=== PATIENT | female | born 1960 | race Caucasian/White ===

== ENCOUNTER 2017-02-07 20:59 | Emergency (ER) | payer MEDICAID ==
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
[2017-02-07 21:14] VITALS: BP 138/78
== END 2017-02-07 22:30 | disposition left against medical advice (07) ==
LOC: ER 20:59
DX: Z53.9 Procedure and treatment not carried out, unspecified reason (principal); S50.12XA Contusion of left forearm, initial encounter; M79.671 Pain in right foot; M54.5 Low back pain; X58.XXXA Exposure to other specified factors, initial encounter
CPT/HCPCS: 99283

== ENCOUNTER → 2017-03-30 | Outpatient (CLI) | payer MEDICAID | LOC: RAD 15:28 | PROVIDERS: ATTEND Orthopaedic Surgery | DX: M25.129 Fistula, unspecified elbow (principal) | CPT/HCPCS: 82565; 73223; A9576 ==

== ENCOUNTER → 2017-07-08 | Outpatient (CLI) | payer MEDICAID ==
--- NOTE | 2017-07-08 10:57 | RADIOLOGY REPORT (SQ) ---
EXAM DESCRIPTION: KNEE LEFT 3 VIEWS COMPLETED DATE/TIME: 07/08/2017 10:43 am REASON FOR STUDY: LEFT LATERAL KNEE PAIN, EFFUSION, LOCKING COMPARISON: None. NUMBER OF VIEWS: Three views. TECHNIQUE: AP, lateral, and sunrise patella radiographic images acquired of the left knee. LIMITATIONS: None. FINDINGS: MINERALIZATION: Normal. BONES: No acute fracture or dislocation. No worrisome bone lesions. JOINT: Mild tricompartmental osteoarthritis most notably involving the medial tibiofemoral compartmen t were there is joint space narrowing and marginal osteophyte formation. No significant joint effusi on. SOFT TISSUES: No soft tissue swelling. No radio-opaque foreign body. OTHER: No other significant finding. IMPRESSION: TRICOMPARTMENTAL OSTEOARTHRITIS ABOVE. NO ACUTE OSSEOUS ABNORMALITY APPEAR TECHNICAL DOCUMENTATION: JOB ID: [id number] [employer]- All Rights Reserved
== END ==
LOC: OD 10:18
PROVIDERS: ATTEND Internal Medicine
DX: M25.562 Pain in left knee (principal)

== ENCOUNTER 2018-05-04 12:56 | Inpatient (IN) | payer MEDICAID ==
[2018-05-04] MEDS ORDERED: NORMAL SALINE 1000 ML 1,000 ML IV ONE (14:00)
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
--- NOTE | 2018-05-04 14:33 | ER Document Report ---
ED Extremity Problem, Lower - General Chief Complaint: Foot Pain Stated Complaint: LEFT HEEL/FOOT PAIN Time Seen by Provider: 05/04/18 13:53 Mode of Arrival: Ambulatory Information source: Patient Notes: 57 yo smoker hx COPD, CHF, breast cancer status post mastectomy, hypertension, hyperlipidemia, rheumatoid arthritis. female c/o severe left foot pain. while in [place] hit foot on rug vent, cut the heel next to the old heel ulcer, went to to ER 04/19, put in cardiac unit for multiple PE's (chest pain) and sludge on gallbladder. Taking Eliquis 2 bid for 2 days (4 daily prior) while hospitalized her left heel started to hurt more and turned black. The MR of foot showed chronic ulceration at the plantar aspect of the heel with chronic erosive change and remodeling of the inferior calcaneus with a small amount of underlying bone marrow edema these findings appear compatible with chronic osteomyelitis a small focus of active osteomyelitis cannot be excluded given the associated marrow edema, a PICC line was inserted and she was to get 6 weeks of IV antibiotics. She was discharged on April 27 and returned to [place]. Went to Dr. Lopez today wanting referral to dr. Chaka bennett and dr lopez sent her to the ER. She takes Percocet 15mg tid (pain management [place]) has a few left at home. Was on Dilaudid IV while in hospital. No fever. Tx for osteomylitis and chronic ulcer which did eventually healed [place] [address] Va Bennett. Her medical records from [place] are here in the emergency department. Her discharge summary diagnosed her with acute bilateral pulmonary emboli, acute hypoxic respiratory failure, acute exacerbation of chronic obstructive lung disorder, left foot osteomyelitis, acute renal failure , and chronic systolic heart failure. She has no chest pain or shortness of breath but she does say she has heartburn and she is wondering if Eliquis is causing that. TRAVEL OUTSIDE OF THE [place] IN LAST 30 DAYS: No - Related Data Allergies/Adverse Reactions: Paclitaxel,Semi-Synthetic [From Taxol] Allergy (Severe, Verified 05/04/18 13:03) Fever, rash, eyes swell Sulfa (Sulfonamide Antibiotics) Allergy (Severe, Verified 05/04/18 13:03) sulfasalazine [From Azulfidine] Allergy (Severe, Verified 05/04/18 13:03) Fever, rash, swelling multiple antibiotics Allergy (Severe, Uncoded 05/04/18 13:03) n and v, itching, swelling Past Medical History - General Information source: Patient - Social History Smoking Status: Current Every Day Smoker Frequency of alcohol use: Occasional Drug Abuse: None Lives with: Alone Family History: Reviewed & Not Pertinent Patient has suicidal ideation: No Patient has homicidal ideation: No - Past Medical History Cardiac Medical History: Reports: Hx Heart Attack - 1993,"silent [place]", Hx Hypercholesterolemia, Hx Hypertension - on meds, Hx Pulmonary Embolism, Hx Heart Murmur Pulmonary Medical History: Reports: Hx Asthma, Hx COPD, Hx Pneumonia Neurological Medical History: Reports: Hx Cerebrovascular Accident - "mild stroke" Endocrine Medical History: Reports: Hx Diabetes Mellitus Type 2 - diet controlled Renal/ Medical History: Denies: Hx Peritoneal Dialysis GI Medical History: Musculoskeltal Medical History: Reports Hx Arthritis - rheumatoid, Reports Other - osetomylitis Psychiatric Medical History: Infectious Medical History: Past Surgical History: Reports: Hx Breast Surgery, Hx Mastectomy - right, 2005 restrictions , Hx Tonsillectomy, Hx Tubal Ligation - Immunizations Hx Diphtheria, Pertussis, Tetanus Vaccination: Yes Hx Pneumococcal Vaccination: 08/20/09 Review of Systems - Review of Systems Constitutional: Other - left heel pain EENT: No symptoms reported Cardiovascular: No symptoms reported Respiratory: No symptoms reported Gastrointestinal: See HPI Genitourinary: No symptoms reported Female Genitourinary: No symptoms reported Musculoskeletal: No symptoms reported Skin: See HPI Hematologic/Lymphatic: No symptoms reported Neurological/Psychological: No symptoms reported Physical Exam - Vital signs Vitals: Temp Pulse Resp BP Pulse Ox 98.5 F 96 18 98/53 L 94 05/04/18 13:14 05/04/18 13:14 05/04/18 13:14 05/04/18 13:14 05/04/18 13:14 Interpretation: Hypotensive Notes: Walked back and forth to the bathroom twice without dizziness or shortness of breath. Pulse ox is 94%. - General General appearance: Appears well, Alert - HEENT Head: Normocephalic, Atraumatic Eyes: Normal Conjunctiva: Normal Pupils: PERRL Pharynx: Normal Neck: Supple. No: Lymphadenopathy - Respiratory Respiratory status: No respiratory distress, Other - pulse ox 94% on room air Chest status: Nontender Breath sounds: Normal Chest palpation: Normal - Cardiovascular Rhythm: Regular Heart sounds: Normal auscultation Murmur: No - Abdominal Inspection: Normal Distension: No distension Bowel sounds: Normal Tenderness: Nontender Organomegaly: No organomegaly - Back Back: Normal, Nontender - Extremities General upper extremity: Normal inspection, Nontender, Normal color, Normal ROM , Normal temperature General lower extremity: Normal inspection, Nontender, Normal color, Normal ROM , Normal temperature, Normal weight bearing. No: German's sign Calf: Other - left calf larger than right. No: Tender Foot: Tender - left heel with white devitalized tissue, malodorous exudate, 2+ DP., Other - normally uses 1 crutch - Neurological Neuro grossly intact: Yes Cognition: Normal Orientation: AAOx4 [place] Coma Scale Eye Opening: Spontaneous [place] Coma Scale Verbal: Oriented [place] Coma Scale Motor: Obeys Commands [place] Coma Scale Total: 15 Speech: Normal Motor strength normal: LUE, RUE, LLE, RLE Sensory: Normal - Psychological Associated symptoms: Normal affect, Normal mood - Skin Skin Temperature: Warm Skin Moisture: Dry Skin Color: Normal Notes: see above Course - Re-evaluation Re-evalutation: 05/04/18 15:46 hx MRSA buttocks 05/04/18 16:30 Dr. Stephens will admit to telemetry. Dr. Rich is in the room examining the patient and will do some debridement of the nonviable tissue. I added a A1C, chest x-ray, EKG. Blood has been redrawn by the lab and is pending. I informed patient about the admission which she is happy about since she knows she needs wound care and IV antibiotics. Invanz 1 g IV has been ordered. Wound culture has been sent to the lab. CBC is normal. - Vital Signs Vital signs: Temp Pulse Resp BP Pulse Ox 98.5 F 96 18 98/53 L 94 05/04/18 13:14 05/04/18 13:14 05/04/18 13:14 05/04/18 13:14 05/04/18 13:14 - Laboratory Result Diagrams: 05/04/18 15:17 05/04/18 15:17 Laboratory results interpreted by me: 05/04/18 05/04/18 15:17 15:17 Hct 35.7 L RDW 14.1 H Lymphocytes % 47.9 H ESR 88 H PT 16.2 H APTT 42.4 H Discharge - Discharge Clinical Impression: Left heel ulcer, left heel osteomyelitis, Hypotension, History of COPD, recent bilatera, PE, Diet-controlled type 2 diabetes mellitus Condition: Stable Disposition: ADMITTED INPATIENT Admitting Provider: Hospitalist Unit Admitted: Telemetry Referrals: CHER LOPEZ MD [Primary Care Provider] - Follow up as needed
--- NOTE | 2018-05-04 15:12 | RADIOLOGY REPORT (SQ) ---
EXAM DESCRIPTION: FOOT LEFT COMPLETE COMPLETED DATE/TIME: 05/04/2018 3:00 pm REASON FOR STUDY: hx osteo; eval osteomyelitis gas COMPARISON: 04/15/2016. NUMBER OF VIEWS: Three views. TECHNIQUE: AP, lateral and oblique without weight bearing radiographic images acquired of the left f oot. LIMITATIONS: None. FINDINGS: MINERALIZATION: Normal. BONES: No acute fracture or dislocation. Old deformity of the head of the 2nd metatarsal. No worris ome bone lesions. No significant osteophytes. JOINTS: No erosions. No micha-articular osteopenia. No chondrocalcinosis. SOFT TISSUES: Soft tissue swelling. No radiopaque foreign body. No visualized gas. OTHER: No other significant finding. IMPRESSION: SOFT TISSUE SWELLING. NO RADIOPAQUE FOREIGN BODY OR VISUALIZED SOFT TISSUE GAS. NO ACU TE BONY FINDINGS. TECHNICAL DOCUMENTATION: JOB ID: [id number] [employer]- All Rights Reserved Reading location - IP/workstation name: [email or web address]
[2018-05-04] MEDS ORDERED: FENTANYL CITRATE INJ/PF 100 MCG/2 ML AMPUL IV ONE ×3 (15:20→15:58)
[2018-05-04 15:37] LABS: ABSOLUTE BASOPHILS # (AUTO) 0.1 10^3/uL (0.0-0.2); ABSOLUTE EOSINOPHILS # (AUTO) 0.2 10^3/uL (0.0-0.6); ABSOLUTE MONOCYTES (AUTO) 0.5 10^3/uL (0.1-1.4); ABSOLUTE NEUT (AUTO) 3.6 10^3/uL (1.7-8.2); BASOPHILS % (AUTO) 1.1 % (0-2); EOSINOPHILS % (AUTO) 2.5 % (0-6); HEMATOCRIT 35.7 % (36.0-47.0); HEMOGLOBIN 12.3 g/dL (12.0-15.5); LYMPHOCYTES % (AUTO) 47.9 % (13-45); MEAN CORPUSCULAR HEMOGLOBIN 31.8 pg (27.0-33.4); MEAN CORPUSCULAR HGB CONC 34.6 g/dL (32.0-36.0); MEAN CORPUSCULAR VOLUME 92 fl (80-97); MONOCYTES % (AUTO) 5.9 % (3-13); PLATELET COUNT 345 10^3/uL (150-450); RED BLOOD COUNT 3.88 10^6/uL (3.72-5.28); RED CELL DISTRIBUTION WIDTH 14.1 % (11.5-14.0); SEGMENTED NEUTROPHILS % (AUTO) 42.6 % (42-78); TOTAL CELLS COUNTED % (AUTO) 100 %; WHITE BLOOD COUNT 8.4 10^3/uL (4.0-10.5)
[2018-05-04 15:47] LABS: INTERNATIONAL RATION (INR) 1.24; PROTHROMBIN TIME 16.2 SEC (11.4-15.4)
[2018-05-04 15:48] LABS: PARTIAL THROMBOPLASTIN TIME 42.4 SEC (23.5-35.8)
[2018-05-04] MEDS ORDERED: ERTAPENEM SODIUM INJ 1 GM VIAL IV ONE (16:15)
[2018-05-04 16:16] LABS: ERYTHROCYTE SEDIMENTATION RATE 88 mm/hr (0-30)
[2018-05-04] MEDS ORDERED: LIDOCAINE 1% INJ-PF (10 MG/ML) 30 ML SDV INJ ONE (16:46)
[2018-05-04 17:04] LABS: ANION GAP 8 (5-19); BLOOD UREA NITROGEN 16 mg/dL (7-20); CARBON DIOXIDE 27 mmol/L (22-30); CHLORIDE 105 mmol/L (98-107); GLUCOSE 87 mg/dL (75-110); POTASSIUM 4.2 mmol/L (3.6-5.0)
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
[2018-05-04 17:15] LABS: CREATINE KINASE MB 7.94 ng/mL (<4.55)
[2018-05-04 17:18] LABS: TROPONIN I < 0.012 ng/mL
--- NOTE | 2018-05-04 17:33 | Operative Report ---
Operative Report DATE OF SURGERY: 05/04/18 PREOPERATIVE DIAGNOSIS: Acute superimposed on chronic left heel wound POSTOPERATIVE DIAGNOSIS: Same OPERATION: Limited excisional debridement left heel wound SURGEON: PETR OCAMPO ANESTHESIA: Local TISSUE REMOVED OR ALTERED: tissue COMPLICATIONS: None ESTIMATED BLOOD LOSS: Minimal INTRAOPERATIVE FINDINGS: See below PROCEDURE: Patient was examined in the emergency department. She has an acute pressor related left heel ulcer superimposed on a chronic cocaine use. There is soupy drainage with exfoliating skin. Consent provided Timeout conducted. The heel was exposed, any symptoms with 1% plain lidocaine. A limited excisional debridement was performed of the obviously overlying skin which revealed a hole in the plantar surface of her foot. This was a conically shaped hole with more devitalized deep tissue, and soupy white drainage. Culture obtained. Unfortunately patient could not tolerate any sort of deep debridement so the procedure was aborted. Moist gauze packed into the recess of the wound, Xeroform and 4 x 4's applied. Kerlix applied. Patient tolerated the procedure reasonably well Impression is deep soft tissue infection left heel devitalized skin, subcutaneous tissue fascia; highly suspicious for osteomyelitis of the kidneys. Recommendations: Keep n.p.o. on IV fluids intravenous antibiotics; hold Lovenox Take patient to the operating room tomorrow morning under LMAC anesthesia for vigorous debridement of the heel possible bone debridement and cultures; placement.
[2018-05-04] MEDS ORDERED: OXYCODONE-ACETAMINOPHEN 5-325 MG TABLET PO ONE (18:12)
[2018-05-04] MEDS ORDERED: GLUCAGON,HUMAN RECOMB 1 MG INJ SUBCUT PRN (18:45)
[2018-05-04] MEDS ORDERED: DEXTROSE 40% GEL 15 GM TUBE PO PRN ×4 (18:45→18:55)
[2018-05-04] MEDS ORDERED: IPRATROPIUM/ALBUTEROL 0.5-2.5 MG/3 ML AMPUL NEB PRN (18:45)
[2018-05-04] MEDS ORDERED: DEXTROSE 50%-WATER 25 GM/50 ML DISP.SYRIN IV PRN ×4 (18:45→18:55)
[2018-05-04] MEDS ORDERED: INSULIN LISPRO 100 UNIT/ML 3 ML VIAL SUBCUT PRN (18:55)
[2018-05-04] MEDS ORDERED: GLUCAGON,HUMAN RECOMB 1 MG INJ IM PRN (18:55)
[2018-05-04] MEDS ORDERED: LANSOPRAZOLE 30 MG TAB.RAP.DR PO ONE (19:31)
--- NOTE | 2018-05-04 19:31 | PDOC H&P ---
History of Present Illness Admission Date/PCP: 05/04/18 17:24 CHER ALFARO MD Patient complains of: Left heel pain History of Present Illness: LÓPEZ CASTILLO is a 57 year old woman with a history of obesity, diet controlled diabetes hypertension, tobacco use and rheumatoid arthritis who is admitted with left heel pain and recent hospitalization for treatment of such with possible underlying osteomyelitis. She was recently discharged from the hospital in [place], alternates between [place] and [place]. Today she went to see her primary care doctor, having recently finished IV antibiotics for the left heel infection. Her doctor felt that the infection was worsening and sent her to the ER. She has been seen by the general surgeon who is debrided the left heel but feels that she needs a deeper debridement in the OR. She is hemodynamically stable. Mentating normally. Labs not too concerning. She is admitted to the hospitalist for management of left heel infection with possible underlying osteomyelitis. Past Medical History Cardiac Medical History: Reports: Myocardial Infarction - 1993,"silent [place]", Hyperlipidema, Hypertension - on meds, Pulmonary Embolism, Heart Murmur Pulmonary Medical History: Reports: Asthma, Chronic Obstructive Pulmonary Disease (COPD), Pneumonia Denies: Bronchitis EENT Medical History: Reports: None Neurological Medical History: Denies: Ischemic CVA, Seizures Endocrine Medical History: Reports: Diabetes Mellitus Type 2 - diet controlled Renal/ Medical History: Denies: Chronic Kidney Disease GI Medical History: Reports: Gastroesophageal Reflux Disease Musculoskeltal Medical History: Reports: Arthritis - rheumatoid, Other - osteomyelitis Psychiatric Medical History: Reports: Tobacco Dependency Denies: Alcohol Dependency, Dementia, Substance Abuse Hematology: Reports: Anemia - hx of Denies: Sickle Cell Disease Infectious Medical History: Reports: Methicillin-Resistant Staph Aureus Past Surgical History Past Surgical History: Reports: Mastectomy - right, 2005 restrictions , Tonsillectomy, Tubal Ligation Denies: Amputation Social History Information Source: Patient, Outside Facility Records Lives with: Alone Smoking Status: Current Every Day Smoker Frequency of Alcohol Use: Occasional Hx Recreational Drug Use: No Hx Prescription Drug Abuse: No Past Social History Note: Patient lives part-time in [facility] and part-time in [facility]. - Advance Directive Resuscitation Status: Full Code Family History Parental Family History Reviewed: Yes - mother had some type of cancer Children Family History Reviewed: Yes Sibling(s) Family History Reviewed.: Yes Medication/Allergy Home Medications: Albuterol Sulfate [Proair HFA] 2 puff IH Q4HP PRN 05/04/18 Alprazolam [Xanax 0.5 mg Tablet] 0.5 mg PO TIDP PRN 05/04/18 Aspirin [Adult Low Dose Aspirin EC] 81 mg PO DAILY 05/04/18 Atorvastatin Calcium [Lipitor 10 mg Tablet] 10 mg PO QHS 05/04/18 Esomeprazole Mag Trihydrate [Nexium] 40 mg PO DAILY 05/04/18 Etanercept [Enbrel Sureclick] 50 mg SQ Q7D 05/04/18 Gabapentin [Neurontin 300 mg Capsule] 600 mg PO Q8 05/04/18 Lisinopril [Zestril] 5 mg PO DAILY 05/04/18 Mometasone Furoate [Nasonex] 1 spray NASL DAILYP PRN 05/04/18 Oxycodone HCl 15 mg PO Q8 05/04/18 Allergies/Adverse Reactions: Paclitaxel,Semi-Synthetic [From Taxol] Allergy (Severe, Verified 05/04/18 13:03) Fever, rash, eyes swell Sulfa (Sulfonamide Antibiotics) Allergy (Severe, Verified 05/04/18 13:03) sulfasalazine [From Azulfidine] Allergy (Severe, Verified 05/04/18 13:03) Fever, rash, swelling multiple antibiotics Allergy (Severe, Uncoded 05/04/18 13:03) n and v, itching, swelling Review of Systems Constitutional: ABSENT: chills, fever(s) Eyes: ABSENT: visual disturbances Ears: ABSENT: hearing changes Cardiovascular: PRESENT: edema Respiratory: ABSENT: cough, dyspnea Gastrointestinal: ABSENT: nausea, vomiting Genitourinary: ABSENT: dysuria Integumentary: PRESENT: lesions Neurological: ABSENT: focal weakness, frequent falls, weakness Psychiatric: PRESENT: anxiety. ABSENT: depression Endocrine: ABSENT: cold intolerance, heat intolerance Hematologic/Lymphatic: ABSENT: easy bleeding, easy bruising Allergic/Immunologic: ABSENT: seasonal rhinorrhea Physical Exam Vital Signs: Temp Pulse Resp BP Pulse Ox 98.2 F 96 17 95/84 L 91 L 05/04/18 18:01 05/04/18 13:14 05/04/18 18:01 05/04/18 18:00 05/04/18 18:01 General appearance: PRESENT: no acute distress, cooperative, morbidly obese Head exam: PRESENT: atraumatic, normocephalic Eye exam: ABSENT: conjunctival injection, scleral icterus Ear exam: PRESENT: normal external ear exam Mouth exam: PRESENT: moist, neck supple, tongue midline Respiratory exam: PRESENT: clear to auscultation lisbeth, unlabored. ABSENT: crackles, rales, wheezes Cardiovascular exam: PRESENT: RRR. ABSENT: diastolic murmur, systolic murmur Pulses: ABSENT: normal radial pulses GI/Abdominal exam: PRESENT: normal bowel sounds, soft. ABSENT: distended, firm , guarding, tenderness Rectal exam: PRESENT: deferred Extremities exam: PRESENT: joint swelling, +1 edema - Left ankle and distal leg Musculoskeletal exam: PRESENT: other - Left foot in clean dry bandage after bedside debridement with general surgery, no significant cellulitis Neurological exam: PRESENT: alert, awake, oriented to person, oriented to place , oriented to situation, CN II-XII grossly intact Psychiatric exam: PRESENT: appropriate affect. ABSENT: anxious Skin exam: PRESENT: dry, intact, warm Results Impressions: Foot X-Ray 05/04/18 13:59 IMPRESSION: SOFT TISSUE SWELLING. NO RADIOPAQUE FOREIGN BODY OR VISUALIZED SOFT TISSUE GAS. NO ACUTE BONY FINDINGS. Chest X-Ray 05/04/18 16:12 IMPRESSION: COPD. CHRONIC INTERSTITIAL CHANGES. NO ACUTE RADIOGRAPHIC FINDING IN THE CHEST. Assessment & Plan - Diagnosis (1) Acute osteomyelitis of left calcaneus Is this a current diagnosis for this admission?: Yes Plan: Patient has left heel soft tissue infection and possible deeper osteomyelitis. Please see left foot infection for plan. (2) Left foot infection Is this a current diagnosis for this admission?: Yes Plan: Patient was recently treated for a left heel infection with IV Invanz for from what I can tell 1 week. This treatment was started in [place] and completed as an outpatient in [facility]. She was seen by her PCP today after 2 days off of the antibiotics and the heel was worsened. She was sent to the ER. We have started her back on Invanz. Unfortunately she has multiple medication allergies, in particular multiple antibiotic allergies and she does not know the names of the antibiotics that she is allergic to. She has a normal white count. She is hemodynamically stable. Will try to learn more about her allergies tomorrow so that we could potentially start her on different antibiotic and possibly add vancomycin. Been seen by the surgeon in the heel has been debrided. She needs to go to the OR for deeper debridement and possible bone biopsy for culture tomorrow. Her n.p.o. at midnight, hold her Lovenox, start her on IV fluids. She is admitted on telemetry due to her cardiac history and diabetes. (3) Bilateral pulmonary embolism Is this a current diagnosis for this admission?: Yes Plan: Patient is on Eliquis. We will hold tonight's dose and restart tomorrow as she is going to the OR first thing in the morning. Surgeon is aware and has asked that evening dose be held. (4) History of COPD Is this a current diagnosis for this admission?: Yes Plan: have started prn duonebs, her lung exam si not consistent wtih COPD flare (5) Rheumatoid arthritis Is this a current diagnosis for this admission?: Yes Plan: Patient is on Enbrel. This is now on hold for infection. (6) Diet-controlled type 2 diabetes mellitus Is this a current diagnosis for this admission?: Yes Plan: Patient states that she eats a regular diet and is sensible about it. She states that she does not eat sweets. She also tells me she does not carb count. She requests irregular and not a diabetic diet. I have ordered Accu- Cheks before meals and at bedtime along with sliding scale short acting insulin. - Time Time Spent: Greater than 70 Minutes - Inpatient Certification Based on my medical assessment, after consideration of the patient's comorbidities, presenting symptoms, or acuity I expect that the services needed warrant INPATIENT care.: Yes I certify that my determination is in accordance with my understanding of Medicare's requirements for reasonable and necessary INPATIENT services [42 CFR 412.3e].: Yes Medical Necessity: Need for IV Antibiotics, Need for Surgery
--- NOTE | 2018-05-04 19:38 | EKG REPORT ---
SEVERITY:- ABNORMAL ECG - SINUS RHYTHM LEFT BUNDLE BRANCH BLOCK : Confirmed by: Phillip Aguiar MD 04-May-2018 19:36:47
[2018-05-04 21:08] LABS: CREATINE KINASE MB 6.47 ng/mL (<4.55)
[2018-05-04 21:12] LABS: TROPONIN I < 0.012 ng/mL
[2018-05-04] MEDS: ATORVASTATIN CALCIUM 10 MG TABLET PO SCH (21:16)
[2018-05-04] MEDS: FLUTICASONE/SALMETEROL DISKUS 250-50 MCG/DOSE IH SCH (21:16)
[2018-05-04] MEDS: NORMAL SALINE 1000 ML 1,000 ML IV PRN (21:16)
[2018-05-04] MEDS: OXYCODONE HCL IR 5 MG TABLET PO SCH (22:54)
[2018-05-04] MEDS: ALPRAZOLAM 0.5 MG TABLET PO PRN (22:55)
[2018-05-04 23:59] LABS: APPEARANCE,URINE CLEAR; BILIRUBIN,URINE NEGATIVE (NEGATIVE); COLOR,URINE YELLOW; GLUCOSE, URINE NEGATIVE (NEGATIVE); KETONES,URINE NEGATIVE (NEGATIVE); LEUKOCYTE ESTERASE,URINE NEGATIVE (NEGATIVE); NITRITE,URINE NEGATIVE (NEGATIVE); PROTEIN,URINE NEGATIVE (NEGATIVE); URINE SPECIFIC GRAVITY 1.009; UROBILINOGEN,URINE NEGATIVE mg/dL (<2.0)
[2018-05-05 02:56] LABS: HEMATOCRIT 33.2 % (36.0-47.0); HEMOGLOBIN 11.3 g/dL (12.0-15.5); MEAN CORPUSCULAR HEMOGLOBIN 31.3 pg (27.0-33.4); MEAN CORPUSCULAR HGB CONC 33.9 g/dL (32.0-36.0); MEAN CORPUSCULAR VOLUME 92 fl (80-97); PLATELET COUNT 241 10^3/uL (150-450); RED CELL DISTRIBUTION WIDTH 13.6 % (11.5-14.0); WHITE BLOOD COUNT 7.4 10^3/uL (4.0-10.5)
[2018-05-05 03:20] LABS: ANION GAP 10 (5-19); BLOOD UREA NITROGEN 13 mg/dL (7-20); CALCIUM 8.7 mg/dL (8.4-10.2); CARBON DIOXIDE 24 mmol/L (22-30); CHLORIDE 110 mmol/L (98-107); CREATINE KINASE 129 U/L (30-135); GLUCOSE 94 mg/dL (75-110); POTASSIUM 4.3 mmol/L (3.6-5.0); SODIUM 143.8 mmol/L (137-145)
[2018-05-05 03:32] LABS: CREATINE KINASE MB 4.31 ng/mL (<4.55)
[2018-05-05 03:33] LABS: TROPONIN I < 0.012 ng/mL
[2018-05-05] MEDS: OXYCODONE HCL IR 5 MG TABLET PO SCH ×3 (05:51→21:48)
[2018-05-05] MEDS: NORMAL SALINE 1000 ML 1,000 ML IV PRN (07:26)
[2018-05-05] MEDS ORDERED: FENTANYL CITRATE INJ/PF 100 MCG/2 ML AMPUL ONE ×2 (07:47→09:56)
[2018-05-05] MEDS ORDERED: MIDAZOLAM 2 MG/2 ML INJ ONE (07:47)
[2018-05-05] MEDS ORDERED: ONDANSETRON HCL INJ/PF 4 MG/2 ML SDV ONE (07:48)
[2018-05-05] MEDS ORDERED: EPHEDRINE SULFATE INJ 50 MG/1 ML AMPULE ONE (07:48)
[2018-05-05] MEDS ORDERED: PROPOFOL INJ 200 MG/20 ML VIAL IV ONE (07:48)
[2018-05-05] MEDS ORDERED: LIDOCAINE 1% INJ-PF (10 MG/ML) 30 ML SDV ONE (08:15)
[2018-05-05] MEDS ORDERED: DIPHENHYDRAMINE HCL 50 MG/ML VIAL IV PRN (08:57)
[2018-05-05] MEDS ORDERED: FENTANYL CITRATE INJ/PF 100 MCG/2 ML AMPUL IV PRN ×3 (08:57)
[2018-05-05] MEDS ORDERED: ONDANSETRON HCL INJ/PF 4 MG/2 ML SDV IV PRN (08:57)
[2018-05-05] MEDS ORDERED: HYDROMORPHONE HCL INJ/PF 2 MG/ML AMPULE INJ ONE (09:23)
[2018-05-05] MEDS ORDERED: PROMETHAZINE HCL INJ 25 MG/1 ML VIAL ONE (09:27)
[2018-05-05] MEDS ORDERED: HYDROMORPHONE HCL INJ/PF 2 MG/ML AMPULE ONE (09:28)
[2018-05-05] MEDS ORDERED: FENTANYL CITRATE INJ/PF 100 MCG/2 ML AMPUL INJ ONE (09:40)
--- NOTE | 2018-05-05 09:45 | Operative Report ---
Nonrecallable Operative Report DATE OF SURGERY: 05/05/18 PREOPERATIVE DIAGNOSIS: Chronic left heel wound with nonviable skin, subcutaneous tissue, fascia, bone consistent with deep soft tissue infection and osteomyelitis of the calcaneus POSTOPERATIVE DIAGNOSIS: Same OPERATION: 1. Placement of left brachial vein PICC line, 5 Martiniquais, using ultrasound as a guide. 2. Excisional debridement of skin, subcutaneous tissue , fascia, and bone from the left heel, grade 4, pressure ulcer, SURGEON: PETR OCAMPO ANESTHESIA: LMAC TISSUE REMOVED OR ALTERED: Skin, subcutaneous tissue, fascia, blood, bone COMPLICATIONS: None ESTIMATED BLOOD LOSS: Minimal INTRAOPERATIVE FINDINGS: See below PROCEDURE: Consent was provided. Patient taken to the operating room where appropriate level of LMAC anesthesia was induced. Left arm was abducted. Patient had a functional left thumb IV. The left upper arm was prepped and draped in sterile fashion with chlorhexidine. Surgical plan surgical timeout were conducted. Using ultrasound as a guide, the left basilic and cephalic veins were small, attenuated, not felt to be suitable for cannulation for PICC line placement. Therefore the brachial vein was identified and felt to be suitable for cannulation. Skin was anesthetized 1% plain lidocaine with a 25-gauge needle. Micro needle and wire were threaded under ultrasound guidance into the left brachial vein above the antecubital fossa. We will remove, micro introducer and see threaded over the wire. Dual lumen purple 5 Martiniquais PICC line trimmed to the length of 44 cm. Dilator removed, and catheter wire threaded into the left brachial vein. Strip away sheath wire removed, leaving cath in good position. Excellent aspiration and flush through both lumens. Self-adhesive dressing applied and OpSite applied. Patient tolerated procedure well Part 2. Left heel prepped and draped in sterile fashion including the entire foot. The findings are significant for a 5 x 6 cm left heel wound, status post limited debridement, with seropurulent material, and a mixture of pressure related nonviable skin and subcutaneous tissue. Using scissors, and #10 blade, finger, rongeur, hemostat and scrub brush, the skin, subcutaneous tissue, fascia, and approximately 1-1/2 cm of the inferior surface of the calcaneus were all debrided vigorously. All nonviable tissue was removed. All pieces of the calcaneus approximately 2 mm was sent for culture. The findings were consistent with a stage IV pressure ulcer extending down to the calcaneus. The exposed portion of calcaneus was approximately 1-1/ 2 cm in maximum cross-sectional diameter. He was irrigated vigorously. Hemostasis was achieved with Xeroform after cauterizing selected bleeders. 4 x 4's and Kerlix applied. Patient tolerated the procedure well postop procedure well and taken recovery room in stable condition. Portable upright chest x-ray pending at time of this dictation
[2018-05-05] MEDS ORDERED: ASPIRIN 81 MG TABLET, ENT COATED PO SCH (10:00)
--- NOTE | 2018-05-05 11:18 | RADIOLOGY REPORT (SQ) ---
EXAM DESCRIPTION: CHEST SINGLE VIEW COMPLETED DATE/TIME: 05/05/2018 11:09 am REASON FOR STUDY: Status post PICC line COMPARISON: Chest films 05/04/2018, 05/20/2016 EXAM PARAMETERS: NUMBER OF VIEWS: One view. TECHNIQUE: Single frontal radiographic view of the chest acquired. RADIATION DOSE: NA LIMITATIONS: None. FINDINGS: LUNGS AND PLEURA: Alveolar and interstitial infiltrates with trace fluid in the fissures w orrisome for fluid overload or congestive failure superimposed on obstructive lung disease. No pneum othorax. MEDIASTINUM AND HILAR STRUCTURES: No masses. Contour normal. HEART AND VASCULAR STRUCTURES: Heart normal in size. Normal vasculature. BONES: No acute findings. HARDWARE: Left-sided PICC line tip superior vena cava. OTHER: No other significant finding. IMPRESSION: Alveolar and interstitial infiltrates worrisome for fluid overload or congestive failure superimposed on obstructive lung disease. PICC line tip superior vena cava TECHNICAL DOCUMENTATION: JOB ID: [id number] [employer]- All Rights Reserved Reading location - IP/workstation name: [email or web address]
[2018-05-05 13:41] LABS: CREATINE KINASE MB 2.46 ng/mL (<4.55)
[2018-05-05 13:44] LABS: TROPONIN I < 0.012 ng/mL
[2018-05-05] MEDS ORDERED: (PENDING PHARMACY ID) (Mometasone Furoate [Nasonex] 1 SPRAY) NASL PRN (14:30)
[2018-05-05 15:45] LABS: ARTERIAL BLOOD BASE EXCESS 0.5 mmol/L; ARTERIAL BLOOD FIO2 21%; ARTERIAL BLOOD H2CO3 1.19 mmol/L (1.05-1.35); ARTERIAL BLOOD O2 SATURATION 89.3 % (94-98); ARTERIAL BLOOD PCO2 39.6 mmHg (35-45); ARTERIAL BLOOD PH 7.42 (7.35-7.45); ARTERIAL BLOOD PO2 55.1 mmHg (80-100); ARTERIAL BLOOD TOTAL CO2 26.2 mmol/L (21-25)
[2018-05-05] MEDS ORDERED: FLUTICASONE NASAL SPRAY 50 MCG/SPRY 120 SPRAY/16 GM NASL PRN (16:30)
[2018-05-05] MEDS ORDERED: MAG HYDROX/AL HYDROX/SIMETH SUSP 30 ML UDCUP PO PRN (16:49)
--- NOTE | 2018-05-05 17:08 | PDOC PROGRESS REPORT ---
Subjective Progress Note for:: 05/05/18 Subjective:: Pt has been asleep a lot since the OR. She was able to wake up during my interview with her. SHe is irritated, not hungry, feels constipated, wants to home as soon as possible. She is open to the idea of going to rehab if she cannot get around on her own once the wound VAC is placed on her heel. No chest pain. A little bit of shortness of breath. No cough fever chills sputum. Reason For Visit: LEFT HEEL INFECTION POSSIBLE OSTEOMYELITIS Physical Exam Vital Signs: Temp Pulse Resp BP Pulse Ox 98.5 F 88 16 117/71 94 05/05/18 11:25 05/05/18 15:10 05/05/18 15:10 05/05/18 11:25 05/05/18 11:25 Intake & Output 05/04/18 05/05/18 05/06/18 06:59 06:59 06:59 Intake Total 1588 225 Output Total 1000 225 Balance 588 0 Weight 90.7 kg General appearance: PRESENT: mild distress, obese Eye exam: ABSENT: conjunctival injection, scleral icterus Ear exam: PRESENT: normal external ear exam Respiratory exam: PRESENT: decreased breath sounds, unlabored. ABSENT: rales, rhonchi, wheezes Cardiovascular exam: PRESENT: RRR Pulses: PRESENT: normal radial pulses GI/Abdominal exam: PRESENT: soft. ABSENT: distended, normal bowel sounds, tenderness Extremities exam: PRESENT: pedal edema, other - Left heel in postoperative dressing that is clean dry and intact. No surrounding cellulitis. Neurological exam: PRESENT: alert, awake, oriented to person, oriented to place , oriented to situation, CN II-XII grossly intact Psychiatric exam: PRESENT: agitated Skin exam: PRESENT: dry, warm Results Laboratory Results: 05/05/18 02:48 05/05/18 02:48 05/04/18 05/05/18 05/05/18 23:25 02:48 02:48 WBC 7.4 RBC 3.60 L Hgb 11.3 L Hct 33.2 L MCV 92 MCH 31.3 MCHC 33.9 RDW 13.6 Plt Count 241 Carbonic Acid HCO3/H2CO3 Ratio ABG pH ABG pCO2 ABG pO2 ABG HCO3 ABG O2 Saturation ABG Base Excess FiO2 Sodium 143.8 Potassium 4.3 Chloride 110 H Carbon Dioxide 24 Anion Gap 10 BUN 13 Creatinine 0.77 Est GFR ( Amer) > 60 Est GFR (Non-Af Amer) > 60 Glucose 94 Calcium 8.7 Urine Color YELLOW Urine Appearance CLEAR Urine pH 5.0 Ur Specific [place] 1.009 Urine Protein NEGATIVE Urine Glucose (UA) NEGATIVE Urine Ketones NEGATIVE Urine Blood NEGATIVE Urine Nitrite NEGATIVE Ur Leukocyte Esterase NEGATIVE Urine WBC (Auto) 1 Urine RBC (Auto) 0 05/05/18 14:50 WBC RBC Hgb Hct MCV MCH MCHC RDW Plt Count Carbonic Acid 1.19 HCO3/H2CO3 Ratio 21:1 ABG pH 7.42 ABG pCO2 39.6 ABG pO2 55.1 L ABG HCO3 25.0 ABG O2 Saturation 89.3 L ABG Base Excess 0.5 FiO2 21% Sodium Potassium Chloride Carbon Dioxide Anion Gap BUN Creatinine Est GFR ( Amer) Est GFR (Non-Af Amer) Glucose Calcium Urine Color Urine Appearance Urine pH Ur Specific [place] Urine Protein Urine Glucose (UA) Urine Ketones Urine Blood Urine Nitrite Ur Leukocyte Esterase Urine WBC (Auto) Urine RBC (Auto) 05/04/18 05/04/18 05/05/18 20:30 20:30 02:48 Creatine Kinase 176 H 129 CK-MB (CK-2) 6.47 H Troponin I < 0.012 05/05/18 05/05/18 05/05/18 02:48 12:43 12:43 Creatine Kinase 75 CK-MB (CK-2) 4.31 2.46 Troponin I < 0.012 < 0.012 Impressions: Foot X-Ray 05/04/18 13:59 IMPRESSION: SOFT TISSUE SWELLING. NO RADIOPAQUE FOREIGN BODY OR VISUALIZED SOFT TISSUE GAS. NO ACUTE BONY FINDINGS. Chest X-Ray 05/05/18 09:10 IMPRESSION: Alveolar and interstitial infiltrates worrisome for fluid overload or congestive failure superimposed on obstructive lung disease. PICC line tip superior vena cava Assessment & Plan - Diagnosis (1) Acute osteomyelitis of left calcaneus Is this a current diagnosis for this admission?: Yes Plan: Status post debridement of left heel wound in the OR today. Also a sample of the bone was taken for culture. In wound culture taken yesterday from bedside debridement patient is growing gram-positive cocci in clusters. Vancomycin will be restarted today. (2) Left foot infection Is this a current diagnosis for this admission?: Yes Plan: We will start vancomycin for gram-positive cocci in clusters and initial culture from yesterday. Will continue Invanz. The surgeon plans to look at her wound tomorrow and hopefully start the wound VAC. (3) Bilateral pulmonary embolism Is this a current diagnosis for this admission?: Yes Plan: Eliquis has been restarted postoperatively. (4) History of COPD Is this a current diagnosis for this admission?: Yes Plan: Margie was on patient's primary care office note that was in her chart and so I restarted that medication. Her wheezing. I am not starting her on steroid. She appears stable from this perspective. (5) Rheumatoid arthritis Is this a current diagnosis for this admission?: Yes Plan: Immunosuppressive drugs on hold secondary to acute infection. She is on oxycodone 15 mg [id number] every 8 hours and this has been started. (6) Diet-controlled type 2 diabetes mellitus Is this a current diagnosis for this admission?: Yes Plan: Patient insists on eating what she desires and so she has been ordered a regular diet. She reports that her diabetes is diet controlled. hemo globin A1c has been ordered. (7) Constipation Is this a current diagnosis for this admission?: Yes Plan: I started patient on senna 1 tab p.o. twice daily. She feels that she is very backed up and so I have offered mag citrate. Her nurses discussing this with her currently. (8) Acute pain Is this a current diagnosis for this admission?: Yes Plan: Patient has rheumatoid arthritis and also she is postop now. She is on her regular oxycodone. We are currently discussing with her what medications might be helpful for acute pain. It may be that we end up increasing her regular 15 mg of oxycodone to every 6 hours from every 8 hours. (9) Somnolence Is this a current diagnosis for this admission?: Yes Plan: Patient was excessively sleepy over the course of today postoperatively. I ordered a blood gas which shows slightly elevated CO2 and hypoxemia. I have increased her nasal cannula oxygen to 3 L from 2 L and we will follow her sats which have been in the low 90s this morning. Will monitor closely and recheck ABG if indicated. She is now waking up some. - Time Time Spent with patient: 35 or more minutes Medications reviewed and adjusted accordingly: Yes - Inpatient Certification Based on my medical assessment, after consideration of the patient's comorbidities, presenting symptoms, or acuity I expect that the services needed warrant INPATIENT care.: Yes I certify that my determination is in accordance with my understanding of Medicare's requirements for reasonable and necessary INPATIENT services [42 CFR 412.3e].: Yes Medical Necessity: Need for IV Antibiotics
[2018-05-05] MEDS ORDERED: LISINOPRIL 5 MG TABLET PO SCH (18:00)
[2018-05-05] MEDS ORDERED: (PENDING PHARMACY ID) (Lisinopril [Zestril] 2.5 MG) PO SCH (18:00)
[2018-05-05] MEDS: SENNOSIDES/DOCUSATE 8.6-50 MG 1 EACH TABLET PO SCH (18:05)
[2018-05-05] MEDS: FLUTICASONE/SALMETEROL DISKUS 250-50 MCG/DOSE IH SCH ×2 (18:06→21:48)
[2018-05-05] MEDS: ATORVASTATIN CALCIUM 10 MG TABLET PO SCH (21:48)
[2018-05-05] MEDS: LISINOPRIL 5 MG TABLET PO SCH (21:48)
[2018-05-05] MEDS ORDERED: APIXABAN 5 MG TABLET PO SCH (22:00)
[2018-05-06] MEDS: OXYCODONE HCL IR 5 MG TABLET PO SCH ×4 (05:26→23:16)
[2018-05-06] MEDS ORDERED: LANSOPRAZOLE 15 MG TAB.RAP.DR PO SCH (06:00)
[2018-05-06 06:43] LABS: HEMATOCRIT 32.8 % (36.0-47.0); HEMOGLOBIN 11.1 g/dL (12.0-15.5); MEAN CORPUSCULAR HEMOGLOBIN 31.1 pg (27.0-33.4); MEAN CORPUSCULAR HGB CONC 33.7 g/dL (32.0-36.0); MEAN CORPUSCULAR VOLUME 92 fl (80-97); PLATELET COUNT 314 10^3/uL (150-450); RED BLOOD COUNT 3.56 10^6/uL (3.72-5.28); RED CELL DISTRIBUTION WIDTH 14.1 % (11.5-14.0); WHITE BLOOD COUNT 9.8 10^3/uL (4.0-10.5)
[2018-05-06 07:09] LABS: ANION GAP 9 (5-19); BLOOD UREA NITROGEN 9 mg/dL (7-20); CALCIUM 8.8 mg/dL (8.4-10.2); CARBON DIOXIDE 26 mmol/L (22-30); CHLORIDE 108 mmol/L (98-107); GLUCOSE 102 mg/dL (75-110); POTASSIUM 4.2 mmol/L (3.6-5.0); SODIUM 142.6 mmol/L (137-145)
[2018-05-06] MEDS ORDERED: (PENDING PHARMACY ID) (Lisinopril [Zestril] 2.5 MG) PO SCH (10:00)
[2018-05-06] MEDS ORDERED: APIXABAN 5 MG TABLET PO SCH ×2 (10:00)
[2018-05-06] MEDS: FLUTICASONE/SALMETEROL DISKUS 250-50 MCG/DOSE IH SCH (10:40)
[2018-05-06] MEDS: LISINOPRIL 5 MG TABLET PO SCH ×2 (10:40→21:11)
[2018-05-06] MEDS: SENNOSIDES/DOCUSATE 8.6-50 MG 1 EACH TABLET PO SCH (10:43)
[2018-05-06] MEDS ORDERED: OXYCODONE HCL IR 5 MG TABLET PO PRN (11:37)
[2018-05-06] MEDS ORDERED: LANSOPRAZOLE 30 MG TAB.RAP.DR PO ONE (12:00)
[2018-05-06] MEDS: ALPRAZOLAM 0.5 MG TABLET PO PRN (15:03)
[2018-05-06] MEDS: NORMAL SALINE INJ/PF 0.9% 10 ML SDV IV PRN (15:05)
--- NOTE | 2018-05-06 16:38 | PDOC PROGRESS REPORT ---
Subjective Progress Note for:: 05/06/18 Subjective:: c/o pain of left heel Reason For Visit: LEFT HEEL INFECTION POSSIBLE OSTEOMYELITIS Physical Exam Vital Signs: Temp Pulse Resp BP Pulse Ox 98.1 F 94 16 134/74 H 94 05/06/18 15:45 05/06/18 15:45 05/06/18 15:45 05/06/18 15:45 05/06/18 15:45 Intake & Output 05/05/18 05/06/18 05/07/18 06:59 06:59 06:59 Intake Total 1588 3192 Output Total 1000 3575 Balance 588 -383 Weight 90.7 kg 96.6 kg Extremities exam: PRESENT: other - Left heel: no necrotic tissue, no grnulation tissue, yellow fat exosed, measuring 5 cm in diameter and 2 cm deep Results Laboratory Results: 05/06/18 06:30 05/06/18 06:30 05/06/18 05/06/18 06:30 06:30 WBC 9.8 RBC 3.56 L Hgb 11.1 L Hct 32.8 L MCV 92 MCH 31.1 MCHC 33.7 RDW 14.1 H Plt Count 314 Sodium 142.6 Potassium 4.2 Chloride 108 H Carbon Dioxide 26 Anion Gap 9 BUN 9 Creatinine 0.75 Est GFR ( Amer) > 60 Est GFR (Non-Af Amer) > 60 Glucose 102 Calcium 8.8 05/04/18 05/04/18 05/05/18 20:30 20:30 02:48 Creatine Kinase 176 H 129 CK-MB (CK-2) 6.47 H Troponin I < 0.012 05/05/18 05/05/18 05/05/18 02:48 12:43 12:43 Creatine Kinase 75 CK-MB (CK-2) 4.31 2.46 Troponin I < 0.012 < 0.012 Impressions: Foot X-Ray 05/04/18 13:59 IMPRESSION: SOFT TISSUE SWELLING. NO RADIOPAQUE FOREIGN BODY OR VISUALIZED SOFT TISSUE GAS. NO ACUTE BONY FINDINGS. Chest X-Ray 05/05/18 09:10 IMPRESSION: Alveolar and interstitial infiltrates worrisome for fluid overload or congestive failure superimposed on obstructive lung disease. PICC line tip superior vena cava Assessment & Plan - Diagnosis (1) Left foot infection Is this a current diagnosis for this admission?: Yes - Plan Summary Plan Summary: A/ POD#1 after full thickness debridment left heel Preliminary cx of left heel significant for gram positive cocci; final cx pending Wound clean after debridment P/ Apply woundvac to left heel wound start Vancomycin Start Zosyn Antibiotics to be tailored once the final cx results are available
[2018-05-06] MEDS ORDERED: PIPERACILLIN/TAZOBACTAM 3.375 GM VIAL IV SCH (16:45)
[2018-05-06] MEDS ORDERED: VANCOMYCIN HCL INJ 1000 MG VIAL IV SCH (16:45)
[2018-05-06] MEDS ORDERED: PIPERACILLIN/TAZOBACTAM 3.375 GM VIAL IV PRN (16:51)
[2018-05-06] MEDS ORDERED: VANCOMYCIN HCL INJ 1000 MG VIAL IV PRN (16:53)
--- NOTE | 2018-05-06 17:14 | PDOC PROGRESS REPORT ---
Subjective Progress Note for:: 05/06/18 Subjective:: Patient's left heel is in a significant amount of pain. She does not think that her chronic pain meds are really managing the acute pain well. No nausea or vomiting, had a large bowel movement and has been able to eat better since then. No fevers or chills. Not sleeping well. No chest pain or difficulty breathing. Reason For Visit: LEFT HEEL INFECTION POSSIBLE OSTEOMYELITIS Physical Exam Vital Signs: Temp Pulse Resp BP Pulse Ox 98.1 F 94 16 134/74 H 94 05/06/18 15:45 05/06/18 15:45 05/06/18 15:45 05/06/18 15:45 05/06/18 15:45 Intake & Output 05/05/18 05/06/18 05/07/18 06:59 06:59 06:59 Intake Total 1588 3192 1474 Output Total 1000 3575 1900 Balance 588 383 426 Weight 90.7 kg 96.6 kg General appearance: PRESENT: no acute distress, obese Eye exam: ABSENT: conjunctival injection, scleral icterus Mouth exam: PRESENT: moist Respiratory exam: PRESENT: clear to auscultation lisbeth, unlabored. ABSENT: rales , rhonchi, wheezes Cardiovascular exam: PRESENT: RRR. ABSENT: systolic murmur Pulses: PRESENT: normal radial pulses GI/Abdominal exam: PRESENT: normal bowel sounds, soft. ABSENT: distended, guarding, tenderness Extremities exam: PRESENT: other - Left foot edema status post wound debridement. ABSENT: calf tenderness Musculoskeletal exam: ABSENT: deformity Neurological exam: PRESENT: alert, awake, oriented to person, oriented to place , oriented to situation, CN II-XII grossly intact Psychiatric exam: PRESENT: anxious, appropriate affect Skin exam: PRESENT: dry, intact, warm Results Laboratory Results: 05/06/18 06:30 05/06/18 06:30 05/06/18 05/06/18 06:30 06:30 WBC 9.8 RBC 3.56 L Hgb 11.1 L Hct 32.8 L MCV 92 MCH 31.1 MCHC 33.7 RDW 14.1 H Plt Count 314 Sodium 142.6 Potassium 4.2 Chloride 108 H Carbon Dioxide 26 Anion Gap 9 BUN 9 Creatinine 0.75 Est GFR ( Amer) > 60 Est GFR (Non-Af Amer) > 60 Glucose 102 Calcium 8.8 06/15/18 06/15/18 06/16/18 20:30 20:30 02:48 Creatine Kinase 176 H 129 CK-MB (CK-2) 6.47 H Troponin I < 0.012 05/05/18 05/05/18 05/05/18 02:48 12:43 12:43 Creatine Kinase 75 CK-MB (CK-2) 4.31 2.46 Troponin I < 0.012 < 0.012 Impressions: Foot X-Ray 05/04/18 13:59 IMPRESSION: SOFT TISSUE SWELLING. NO RADIOPAQUE FOREIGN BODY OR VISUALIZED SOFT TISSUE GAS. NO ACUTE BONY FINDINGS. Chest X-Ray 05/05/18 09:10 IMPRESSION: Alveolar and interstitial infiltrates worrisome for fluid overload or congestive failure superimposed on obstructive lung disease. PICC line tip superior vena cava Assessment & Plan - Diagnosis (1) Acute osteomyelitis of left calcaneus Is this a current diagnosis for this admission?: Yes Plan: Patient is on Vanco and Zosyn for left heel wound including possible osteomyelitis. Bone culture is pending. (2) Left foot infection Is this a current diagnosis for this admission?: Yes Plan: Yesterday patient underwent debridement OR for left necrotic heel wound. General surgery is following. Wound VAC has been ordered for today. We will continue Vanco Zosyn and pre-debridement and for operative debridement cultures both growing gram-positive cocci in clusters. (3) Bilateral pulmonary embolism Is this a current diagnosis for this admission?: Yes Plan: Patient was diagnosed with bilateral PEs from what I can tell about a week ago. She does not remember exactly when she started her Eliquis 10 mg p.o. twice daily but she thinks it was about 5 days ago. She was diagnosed with this while she was in [place] for a . I have ordered 2 more days of Eliquis 10 mg p.o. twice daily and then she should switch to the 5 mg p.o. twice daily. (4) History of COPD Is this a current diagnosis for this admission?: Yes Plan: COPD is stable now. Continue as needed duo nebs. She was hypoxemic on admission but she no longer needs oxygen. (5) Rheumatoid arthritis Is this a current diagnosis for this admission?: Yes Plan: Seems stable. Continue her oxycodone 15 mg for her RA. Immunosuppressive drugs on hold. (6) Diet-controlled type 2 diabetes mellitus Is this a current diagnosis for this admission?: Yes Plan: His hemoglobin A1c is 6. She is requesting a regular diet and she states that she will do only what is appropriate. Diet changed to regular. (7) Constipation Is this a current diagnosis for this admission?: Yes Plan: Resolved, had large bowel movement 2 yesterday. Patient requests that we decrease the senna dose and now she is on senna 1 tab p.o. daily. (8) Acute pain Is this a current diagnosis for this admission?: Yes Plan: For chronic pain the patient is on oxycodone 50 mg p.o. every 8 hours scheduled. I have increase that to oxycodone 15 mg p.o. every 6 hours scheduled. She will have 2 extra doses of 15 mg of oxycodone available as needed acute pain. Opioid pain medications will be held for somnolence altered mental status. (9) Somnolence Is this a current diagnosis for this admission?: Yes Plan: Yesterday patient was somnolent postoperatively. ABG showed a little hypoxemia and a little hypercarbia. Now the patient is awake alert and oriented without complication. - Time Time Spent with patient: 35 or more minutes Medications reviewed and adjusted accordingly: Yes - Inpatient Certification Based on my medical assessment, after consideration of the patient's comorbidities, presenting symptoms, or acuity I expect that the services needed warrant INPATIENT care.: Yes I certify that my determination is in accordance with my understanding of Medicare's requirements for reasonable and necessary INPATIENT services [42 CFR 412.3e].: Yes Medical Necessity: Need for IV Antibiotics - Plan Summary Plan Summary: I have been collaborating with the surgical service daily on this patient's care. We will await culture results including bone in order to determine final treatment plan. Wound VAC is being placed to the left heel today. Patient is open to the idea of going to acute rehab if she cannot care for herself with the wound VAC on her own.
[2018-05-06] MEDS ORDERED: MORPHINE SULFATE 10 MG/ML INJ ONE (17:39)
[2018-05-06] MEDS ORDERED: MORPHINE SULFATE 10 MG/ML INJ IV ONE (18:00)
[2018-05-06] MEDS ORDERED: VANCOMYCIN HCL 1,000 MG in DEXTROSE 5%-WATER 250 ML IV SCH (18:00)
[2018-05-06] MEDS ORDERED: PIPERACILLIN/TAZOBACTAM 3.375 GM VIAL IV ONE (18:38)
[2018-05-06] MEDS ORDERED: VANCOMYCIN HCL INJ 1000 MG VIAL ONE (18:38)
[2018-05-06] MEDS: APIXABAN 5 MG TABLET PO SCH (18:39)
[2018-05-06] MEDS: PIPERACILLIN SODIUM/TAZOBACTAM 3.375 GM in NORMAL SALINE 100 ML IV SCH (20:05)
[2018-05-06] MEDS: LANSOPRAZOLE 30 MG TAB.RAP.DR PO SCH (20:50)
[2018-05-06] MEDS: ATORVASTATIN CALCIUM 10 MG TABLET PO SCH (21:11)
[2018-05-06] MEDS: GABAPENTIN 300 MG CAPSULE PO SCH (21:12)
[2018-05-07] MEDS: PIPERACILLIN SODIUM/TAZOBACTAM 3.375 GM in NORMAL SALINE 100 ML IV SCH ×2 (00:43→05:44)
[2018-05-07] MEDS: ALPRAZOLAM 0.5 MG TABLET PO PRN ×2 (03:06→13:04)
[2018-05-07] MEDS: LANSOPRAZOLE 30 MG TAB.RAP.DR PO SCH (05:43)
[2018-05-07] MEDS: OXYCODONE HCL IR 5 MG TABLET PO SCH ×3 (05:43→18:05)
[2018-05-07 06:02] LABS: HEMATOCRIT 32.8 % (36.0-47.0); HEMOGLOBIN 11.2 g/dL (12.0-15.5); MEAN CORPUSCULAR HEMOGLOBIN 31.2 pg (27.0-33.4); MEAN CORPUSCULAR VOLUME 92 fl (80-97); PLATELET COUNT 342 10^3/uL (150-450); RED BLOOD COUNT 3.58 10^6/uL (3.72-5.28); WHITE BLOOD COUNT 7.8 10^3/uL (4.0-10.5)
[2018-05-07 06:24] LABS: ANION GAP 9 (5-19); BLOOD UREA NITROGEN 8 mg/dL (7-20); CALCIUM 9.1 mg/dL (8.4-10.2); CARBON DIOXIDE 29 mmol/L (22-30); CHLORIDE 107 mmol/L (98-107); GLUCOSE 91 mg/dL (75-110); POTASSIUM 4.1 mmol/L (3.6-5.0); SODIUM 145.4 mmol/L (137-145)
--- NOTE | 2018-05-07 08:08 | PDOC PROGRESS REPORT ---
Subjective Progress Note for:: 05/07/18 Subjective:: No c/o Reason For Visit: LEFT HEEL INFECTION POSSIBLE OSTEOMYELITIS Physical Exam Vital Signs: Temp Pulse Resp BP Pulse Ox 97.9 F 80 19 126/74 H 92 05/07/18 04:00 05/07/18 04:00 05/07/18 04:00 05/07/18 04:00 05/07/18 04:00 Intake & Output 05/06/18 05/07/18 05/08/18 06:59 06:59 06:59 Intake Total 3612 2860 Output Total 3575 5150 Balance 37 -2290 Weight 96.6 kg 96.3 kg Eye exam: PRESENT: conjunctival injection Extremities exam: PRESENT: other - Left heel: WoundVac in place Results Laboratory Results: 05/07/18 05:45 05/07/18 05:45 05/07/18 05/07/18 05:45 05:45 WBC 7.8 RBC 3.58 L Hgb 11.2 L Hct 32.8 L MCV 92 MCH 31.2 MCHC 34.0 RDW 14.0 Plt Count 342 Sodium 145.4 H Potassium 4.1 Chloride 107 Carbon Dioxide 29 Anion Gap 9 BUN 8 Creatinine 0.86 Est GFR ( Amer) > 60 Est GFR (Non-Af Amer) > 60 Glucose 91 Calcium 9.1 05/04/18 05/04/18 05/05/18 20:30 20:30 02:48 Creatine Kinase 176 H 129 CK-MB (CK-2) 6.47 H Troponin I < 0.012 05/05/18 05/05/18 05/05/18 02:48 12:43 12:43 Creatine Kinase 75 CK-MB (CK-2) 4.31 2.46 Troponin I < 0.012 < 0.012 Impressions: Foot X-Ray 05/04/18 13:59 IMPRESSION: SOFT TISSUE SWELLING. NO RADIOPAQUE FOREIGN BODY OR VISUALIZED SOFT TISSUE GAS. NO ACUTE BONY FINDINGS. Chest X-Ray 05/05/18 09:10 IMPRESSION: Alveolar and interstitial infiltrates worrisome for fluid overload or congestive failure superimposed on obstructive lung disease. PICC line tip superior vena cava Assessment & Plan - Diagnosis (1) Left foot infection Is this a current diagnosis for this admission?: Yes - Plan Summary Plan Summary: A/ POD#2 after left heel debridment Left heel introperative cx pending wounvac place on left heel Patient on Zosyn/Vanco P/ Patient can be discharged to home at any time by my viewpoint once left heel final cx results are available on oral abx regimen chosen by hospitalist Patient to undergo outpatient WoundVac change at [facility] after discharge No acute General Surgery issues identified
[2018-05-07] MEDS: VANCOMYCIN HCL 1,000 MG in DEXTROSE 5%-WATER 250 ML IV SCH ×2 (10:27→22:49)
[2018-05-07] MEDS: SENNOSIDES/DOCUSATE 8.6-50 MG 1 EACH TABLET PO SCH (10:27)
[2018-05-07] MEDS: APIXABAN 5 MG TABLET PO SCH ×2 (10:28→18:05)
[2018-05-07] MEDS: LISINOPRIL 5 MG TABLET PO SCH ×2 (10:28→22:47)
[2018-05-07] MEDS: ASPIRIN 81 MG TABLET, CHEWABLE PO SCH (10:29)
[2018-05-07] MEDS ORDERED: IPRATROPIUM/ALBUTEROL 0.5-2.5 MG/3 ML AMPUL NEB PRN (12:52)
--- NOTE | 2018-05-07 15:44 | Progress Note ---
Provider Note Provider Note: ID Consult Note Asked to review patient's chart. Pt not seen or examined. Reviewed chart including VS, imaging reports, provider reports and operative note, culture results. Ms. Caldera is a 57 year old woman with PMH including obesity, rheumatoid arthritis, HTN, diabetes, and tobacco use who was admitted on with left heel pain and worsening appearance of the L heel shortly after completing a course of IV antibiotics for L heel infection. Plain films of the foot did not show any evidence of osteomyelitis, but she was found to have an ulcer in the plantar surface of her left foot with soupy drainage and devitalized deep tissue for which limited debridement was performed on 05/04, followed by more vigorous debridement in the OR on 05/05/18. The patient was found to have a stage IV pressure ulcer extending down to the calcaneus with seropurulent material encountered, nonviable skin and subcutaneous tissue debrided, and bone sent for culture. Labs notable for normal renal function, ESR 88, blood cultures negative x 48h, and cultures from 05/04 from the heel that grew 4+ MRSA and from 05/05 that grew 1+ MRSA and 1 colony of Group G Strep. Empirically, the patient had been receiving IV vancomycin and IV Zosyn, which was de-escalated to IV vancomycin alone. Impression/Recommendations MRSA osteomyelitis of the L calcaneus - Recommend that the patient complete 6 weeks of treatment with IV vancomycin ( anticipated end date 06/16/18). IV vancomycin should be dosed with the assistance of a clinical pharmacist to achieve goal troughs of 15-20 micrograms/ mL and monitor CBC, CMP and vancomycin troughs at least weekly while on IV vancomycin. Trends in ESR could be followed periodically to help provide a sense of response in addition to clinical assessment. - IV daptomycin 600 mg/kg daily is an alternative to IV vancomycin. From the standpoint of ease of outpatient administration, daptomycin may have an advantage of being once a day, but it would also require CPK monitoring at baseline and once weekly, in addition to weekly CBC and CMP, and potentially a change in therapy. The patient is taking atorvastatin, and both daptomycin and atorvastatin can potentially result in myopathy. If daptomycin is used instead of vancomycin, consideration should be given to temporarily discontinuing the statin during the 6 weeks of treatment or, if the statin is used together with daptomycin, twice weekly CPK monitoring is encouraged. If the patient is treated with IV daptomycin and develops CPK >5x ULN with symptoms or >10x ULN without symptoms, daptomycin would need to be discontinued and vancomycin given instead. - The single colony of Group G Strep that was recovered on 05/05 may be a contaminant from the skin, rather than a true pathogen, but IV vancomycin or IV daptomycin will have activity against Group G Strep in addition to MRSA, regardless. Mati Medley MD [facility] Infectious Diseases pager [phone]
[2018-05-07] MEDS: NORMAL SALINE INJ/PF 0.9% 10 ML SDV IV PRN (16:22)
--- NOTE | 2018-05-07 19:30 | PROGRESS NOTE E ---
Progress Note NAME: LÓPEZ CASTILLO : 1960 AGE: 57Y DATE: 05/07/2018 ROOM: 415 SUBJECTIVE: The patient is currently lying in bed. She states that she feels frustrated today. The patient denies any nausea, vomiting or diarrhea. No shortness of breath, dizziness or chest pain. No fever or chills. Patient has been afebrile. Blood pressure has been in good range. The patient does not voice any other concerns at this time. BRIEF HISTORY: The patient is a 57-year-old female with a past medical history of poorly controlled diabetes. The patient presented to the emergency department with a left heel infection. According to the patient, she has had a history of this in the past, which took her years to get over. Additionally, the patient was diagnosed with bilateral pulmonary embolisms while at a in [place], which is recent. The patient is still on full does Eliquis at this time. The patient was taken to the OR by Dr. Rich for debridement, and intraoperative bone culture was obtained, which has revealed MRSA and a group G beta strep. Consultation with Infectious Disease is pending at the time of this dictation. Will follow. REVIEW OF SYSTEMS: The rest of the review of systems is negative. MEDICATION: Reviewed. OBJECTIVE: GENERAL: The patient is a 57-year-old female, who is awake, alert. She is oriented to person, place, time and situation. She is verbal and conversational. Does not appear to be in distress. VITAL SIGNS: Temperature is 98.3, pulse 84, respirations 17, blood pressure 118/71, oxygen saturation is 100% on room air. SKIN: Warm and dry. No rashes. She is not diaphoretic. HEENT: Pupils are reactive. Conjunctivae are pink. No evidence of JVP. CVS: Negative. No murmur or rub. CHEST: Clear, symmetrical, unlabored. ABDOMEN: Soft, nontender, nondistended. BACK: No CVA tenderness or sacral edema. EXTREMITIES: The patient does have edema of both lower extremities, which appears to be dependent, left much greater than the right. Wound V.A.C. is in place. PSYCHIATRIC: Appropriate affect, pleasant mood. DIAGNOSTICS: Lab values are as follows: Hematology obtained on 05/07/2018: WBC is 7.8, hemoglobin is 11.2, hematocrit is 32.8, platelet count is 342,000. Chemistry obtained on 05/07/2018: Sodium is 145, potassium 4.1, chloride is 107, carbon dioxide 28, BUN 8, creatinine 0.86, glucose 91, calcium is 9.1. IMPRESSION AND PLAN: 1. MRSA OSTEOMYELITIS OF THE LEFT HEEL. We will discuss the case with Dr. Vargas with Infectious Disease. It is pending at the time of this dictation. We will go ahead and discontinue Zosyn. Continue vancomycin for now. The patient already has a PICC line in place. Will also consult Social Work for home IV antibiotics. 2. LEFT FOOT WOUND, STATUS POST DEBRIDEMENT. The patient does have a wound V.A.C. in place. This can be followed up by the Wound [facility]. The patient has been followed with Dr. Bennett in the past. 3. BILATERAL PULMONARY EMBOLISM. Continue Eliquis. 4. CHRONIC OBSTRUCTIVE PULMONARY DISEASE. This is stable. Will back off the patient's nebs. She is not hypoxic. 5. RHEUMATOID ARTHRITIS. Overall stable. Will continue her chronic medications. Immunosuppressive drugs are on hold at this moment. 6. DIABETES MELLITUS TYPE 2. The patient's A1c was actually 6. Will continue sliding scale coverage for tight glycemic control. 7. CONSTIPATION. Continue cathartics. 8. TOBACCO DEPENDENCY. Have discussed and smoking cessation education. The patient declines any pharmacological intervention at this time. I have stressed the importance of the patient to stop smoking in an effort for this to heal, as peripheral vascular disease is what is preventing this wound from healing. DISPOSITION: The patient is a FULL CODE. Pending patient's symptomatology and diagnostic findings, will reevaluate in the a.m. Time spent on this followup, including assessment, plan, physical examination, patient education and review of records is 35 minutes. DICTATING PHYSICIAN: CECILIA PRUITT [id number] PHY#: [id number] ID: [id number] JOB#: [id number] ACCT: [id number] cc: > [facility]
--- NOTE | 2018-05-07 22:30 | OPERATIVE REPORT E ---
Operative Report NAME: LÓPEZ CASTILLO : 1960 AGE: 57Y DATE OF SURGERY: 05/07/2018 ROOM: 415 ADDENDUM: Correction last paragraph under impression the statement should be: Deep soft tissue infection left heel; devitalized skin, subcutaneous tissue, and fascia. Highly suspicious for osteomyelitis of the left heel. DICTATING PHYSICIAN: PETR OCAMPO M.D. [id number] PHY#: [id number] [id number] JOB#: [id number] ACCT: [id number] cc:PETR OCAMPO M.D. >
[2018-05-07] MEDS: ATORVASTATIN CALCIUM 10 MG TABLET PO SCH (22:48)
[2018-05-07] MEDS: GABAPENTIN 300 MG CAPSULE PO SCH (22:48)
[2018-05-08] MEDS: OXYCODONE HCL IR 5 MG TABLET PO SCH ×5 (00:31→23:52)
[2018-05-08] MEDS: LANSOPRAZOLE 30 MG TAB.RAP.DR PO SCH (06:16)
[2018-05-08] MEDS: APIXABAN 5 MG TABLET PO SCH (09:52)
[2018-05-08] MEDS: LISINOPRIL 5 MG TABLET PO SCH ×2 (09:52→22:18)
[2018-05-08] MEDS: ALPRAZOLAM 0.5 MG TABLET PO PRN ×2 (09:52→18:49)
[2018-05-08] MEDS: SENNOSIDES/DOCUSATE 8.6-50 MG 1 EACH TABLET PO SCH (09:52)
[2018-05-08] MEDS: ASPIRIN 81 MG TABLET, CHEWABLE PO SCH (09:52)
[2018-05-08] MEDS: VANCOMYCIN HCL 1,000 MG in DEXTROSE 5%-WATER 250 ML IV SCH (11:02)
[2018-05-08 11:56] LABS: VANCOMYCIN,TROUGH 10.6 ug/mL (5.0-20.0)
[2018-05-08] MEDS ORDERED: APIXABAN 5 MG TABLET PO SCH (18:00)
--- NOTE | 2018-05-08 19:21 | PDOC PROGRESS REPORT ---
Subjective Progress Note for:: 05/08/18 Subjective:: Patient seen resting on the side of the bed. She denies any chest pain, shortness of breath or dyspnea. She denies any nausea, vomiting or abdominal pain. She is complaining of pain in the left heel. She states the current pain medicine is not enough. She does pain management at [facility]. She denies any significant other pain. She is extremely dramatic in her presentation. Remaining review of systems are negative. Reason For Visit: LEFT HEEL INFECTION POSSIBLE OSTEOMYELITIS Physical Exam Vital Signs: Temp Pulse Resp BP Pulse Ox 98.0 F 94 18 129/81 H 91 L 05/08/18 15:05 05/08/18 15:05 05/08/18 15:05 05/08/18 15:05 05/08/18 15:05 Intake & Output 05/07/18 05/08/18 05/09/18 06:59 06:59 06:59 Intake Total 2860 2871 961 Output Total 5150 2550 925 Balance -2290 321 36 Weight 96.3 kg 96.3 kg General appearance: PRESENT: no acute distress, obese, well-developed, well- nourished Head exam: PRESENT: atraumatic, normocephalic Eye exam: PRESENT: conjunctiva pink, EOMI, PERRLA. ABSENT: scleral icterus Ear exam: PRESENT: normal external ear exam Mouth exam: PRESENT: moist, tongue midline Neck exam: ABSENT: carotid bruit, JVD, lymphadenopathy, thyromegaly Respiratory exam: PRESENT: clear to auscultation lisbeth. ABSENT: rales, rhonchi, wheezes Cardiovascular exam: PRESENT: RRR. ABSENT: diastolic murmur, rubs, systolic murmur Pulses: PRESENT: normal dorsalis pedis pul Vascular exam: PRESENT: normal capillary refill GI/Abdominal exam: PRESENT: normal bowel sounds, soft. ABSENT: distended, guarding, mass, organolmegaly, rebound, tenderness Rectal exam: PRESENT: deferred Extremities exam: PRESENT: full ROM. ABSENT: calf tenderness, clubbing, pedal edema Neurological exam: PRESENT: alert, awake, oriented to person, oriented to place , oriented to time, oriented to situation, CN II-XII grossly intact. ABSENT: motor sensory deficit Psychiatric exam: PRESENT: anxious, unusual affect Focused psych exam: PRESENT: flight of ideas Skin exam: PRESENT: dry, warm, other Results Laboratory Results: 05/07/18 05:45 05/08/18 10:55 05/08/18 10:55 Creatinine 0.90 Est GFR ( Amer) > 60 Est GFR (Non-Af Amer) > 60 05/04/18 23:25 Clean Catch Midstream Urine Culture - Final Staph Coagulase Negative 05/05/18 08:51 Foot - Left Heel Gram Stain - Final 05/05/18 08:51 Foot - Left Heel Wound Culture - Final Mrsa (Meth Resis Staph Aureus) Group G Beta Streptococcus No Anaerobic Organisms 05/04/18 05/04/18 05/05/18 20:30 20:30 02:48 Creatine Kinase 176 H 129 CK-MB (CK-2) 6.47 H Troponin I < 0.012 05/05/18 05/05/18 05/05/18 02:48 12:43 12:43 Creatine Kinase 75 CK-MB (CK-2) 4.31 2.46 Troponin I < 0.012 < 0.012 Impressions: Foot X-Ray 05/04/18 13:59 IMPRESSION: SOFT TISSUE SWELLING. NO RADIOPAQUE FOREIGN BODY OR VISUALIZED SOFT TISSUE GAS. NO ACUTE BONY FINDINGS. Chest X-Ray 05/05/18 09:10 IMPRESSION: Alveolar and interstitial infiltrates worrisome for fluid overload or congestive failure superimposed on obstructive lung disease. PICC line tip superior vena cava Assessment & Plan - Diagnosis (1) Acute osteomyelitis of left calcaneus Is this a current diagnosis for this admission?: Yes Plan: Cultures are positive for MRSA. She has been receiving IV vancomycin. She is ready for discharge down the cultures are clear and she has a PICC line in place. She will need IV antibiotics for total 6 weeks for osteomyelitis of the left calcaneus. For the ease of outpatient administration we will switch her to daptomycin. She will have home health and home IV therapy to follow. Case management is in the process of obtaining IV antibiotics and wound VAC. She could discharge in the next 1-2 days once the supplies have been obtained. (2) Bilateral pulmonary embolism Is this a current diagnosis for this admission?: Yes Plan: Presently on Eliquis. (3) Constipation Qualifiers: Constipation type: drug induced constipation Qualified Code(s): K59.03 - Drug induced constipation Is this a current diagnosis for this admission?: Yes Plan: Continue present cathartics. (4) Diet-controlled type 2 diabetes mellitus Is this a current diagnosis for this admission?: Yes Plan: Continue current medications and sliding scale coverage (5) Rheumatoid arthritis Qualifiers: Rheumatoid arthritis location: shoulder Is this a current diagnosis for this admission?: Yes Plan: Continue home medications. (6) Acute pain Is this a current diagnosis for this admission?: Yes Plan: Continue current pain management. Need follow-up with pain clinic - Time Time Spent with patient: 25-34 minutes Total Critical Time (Minutes): 20 Medications reviewed and adjusted accordingly: Yes Anticipated discharge: Home with Homehealth Within: within 24 hours
[2018-05-08] MEDS ORDERED: VANCOMYCIN HCL 1,500 MG in DEXTROSE 5%-WATER 250 ML IV SCH (22:00)
[2018-05-08] MEDS: ATORVASTATIN CALCIUM 10 MG TABLET PO SCH (22:18)
[2018-05-08] MEDS: GABAPENTIN 300 MG CAPSULE PO SCH (22:19)
[2018-05-09] MEDS: OXYCODONE HCL IR 5 MG TABLET PO PRN ×2 (03:03→09:46)
[2018-05-09] MEDS: OXYCODONE HCL IR 5 MG TABLET PO SCH ×3 (05:36→17:59)
[2018-05-09] MEDS: LANSOPRAZOLE 30 MG TAB.RAP.DR PO SCH (05:36)
[2018-05-09] MEDS: LISINOPRIL 5 MG TABLET PO SCH (09:13)
[2018-05-09] MEDS: ASPIRIN 81 MG TABLET, CHEWABLE PO SCH (09:13)
[2018-05-09] MEDS: SENNOSIDES/DOCUSATE 8.6-50 MG 1 EACH TABLET PO SCH (09:13)
[2018-05-09] MEDS: ALPRAZOLAM 0.5 MG TABLET PO PRN ×2 (09:14→18:00)
[2018-05-09] MEDS ORDERED: DAPTOMYCIN 500 MG in NORMAL SALINE 50 ML IV SCH (10:00)
[2018-05-09 17:50] VITALS: BP 126/68
--- NOTE | 2018-05-09 19:42 | PDOC DISCHARGE SUMMARY ---
General - Admit/Disc Date/PCP Admission Date/Primary Care Provider: 05/04/18 17:24 CHER ALFARO MD Discharge Date: 05/09/18 - Discharge Diagnosis (1) Acute osteomyelitis of left calcaneus Is this a current diagnosis for this admission?: Yes Summary: She had debridement of the wound with placement of a wound VAC. The wound grew MRSA. She had a PICC line and she will get daptomycin for 6 weeks. - Additional Information Resuscitation Status: Full Code Discharge Diet: Diabetic, Other (Comments) Discharge Activity: Other Prescriptions: Daptomycin [Cubicin Inj 500 mg Vial] 500 mg IV DAILY #42 vial Home Medications: Albuterol Sulfate [Proair HFA] 2 puff IH Q4HP PRN 05/04/18 Alprazolam [Xanax 0.5 mg Tablet] 0.5 mg PO TIDP PRN 05/04/18 Apixaban [Eliquis 5 mg Tablet] 10 mg PO Q12X7D MDD LAST DOSE WOULD BE 05-05-18 05/04/18 Aspirin [Adult Low Dose Aspirin EC] 81 mg PO DAILY 05/04/18 Atorvastatin Calcium [Lipitor 10 mg Tablet] 10 mg PO QHS 05/04/18 Esomeprazole Mag Trihydrate [Nexium] 40 mg PO DAILY 05/04/18 Etanercept [Enbrel Sureclick] 50 mg SQ TH 05/04/18 Gabapentin [Neurontin 300 mg Capsule] 900 mg PO QHS 05/04/18 Lisinopril [Zestril] 2.5 mg PO BID 05/04/18 Mometasone Furoate [Nasonex] 1 spray NASL DAILYP PRN 05/04/18 Oxycodone HCl 15 mg PO Q8 05/04/18 Aspirin [Aspirin 81 mg Chewable Tablet] 81 mg PO DAILY tab.chew 05/09/18 Daptomycin [Cubicin Inj 500 mg Vial] 500 mg IV DAILY #42 vial 05/09/18 History of Present Illness History of Present Illness: LÓPEZ CASTILLO is a 57 year old female Hospital Course Hospital Course: She came in with a wound on her leg and was started on empiric antibiotics. Surgery was consulted and she wanted having a debridement of the wound with cultures. It grew out MRSA. She had a PICC line in place and she is going to be on daptomycin for 6 weeks; this was selected for ease of administration. She had a wound VAC placed and she got home health orders for that she will follow-up with the wound center as an outpatient. Before she was discharged she wanted me to prescribe her more pain medication when she was getting at home , saying that she could not get to her pain doctor in [place]. I reminded her that she had a contract with her pain doctor in [place], and that if she got pain medicine from anyone other than that provider that she will likely be fired from the practice as this is a common practice of unexplained management specialists. Her labs were reassuring as was her exam and she was discharged today in good condition. Physical Exam Vital Signs: Temp Pulse Resp BP Pulse Ox 98.2 F 95 16 126/68 H 90 L 05/09/18 17:47 05/09/18 17:47 05/09/18 17:47 05/09/18 17:47 05/09/18 17:47 Intake & Output 05/08/18 05/09/18 05/10/18 06:59 06:59 06:59 Intake Total 2871 1421 Output Total 2550 1975 Balance 321 -554 Weight 96.3 kg 96.4 kg General appearance: PRESENT: no acute distress, disheveled, obese, well- developed Head exam: PRESENT: atraumatic, normocephalic Respiratory exam: PRESENT: clear to auscultation lisbeth. ABSENT: rales, rhonchi, wheezes Cardiovascular exam: PRESENT: RRR. ABSENT: diastolic murmur, rubs, systolic murmur Vascular exam: PRESENT: normal capillary refill GI/Abdominal exam: PRESENT: normal bowel sounds, soft. ABSENT: distended, guarding, mass, organolmegaly, rebound, tenderness Extremities exam: PRESENT: full ROM, other - She had a wound VAC with a dressing in place on her left heel with serosanguineous drainage in the tube container. ABSENT: calf tenderness, clubbing, pedal edema Results Laboratory Results: 05/07/18 05:45 05/08/18 10:55 05/04/18 05/04/18 05/05/18 20:30 20:30 02:48 Creatine Kinase 176 H 129 CK-MB (CK-2) 6.47 H Troponin I < 0.012 05/05/18 05/05/18 05/05/18 02:48 12:43 12:43 Creatine Kinase 75 CK-MB (CK-2) 4.31 2.46 Troponin I < 0.012 < 0.012 Impressions: Foot X-Ray 05/04/18 13:59 IMPRESSION: SOFT TISSUE SWELLING. NO RADIOPAQUE FOREIGN BODY OR VISUALIZED SOFT TISSUE GAS. NO ACUTE BONY FINDINGS. Chest X-Ray 05/05/18 09:10 IMPRESSION: Alveolar and interstitial infiltrates worrisome for fluid overload or congestive failure superimposed on obstructive lung disease. PICC line tip superior vena cava Qualifiers - * PATIENT BEING DISCHARGED WITH ANY OF THE FOLLOWING DIAGNOSIS: No
== END 2018-05-09 20:40 | disposition home health service (06) | DRG 503 ==
LOC: ER 12:56 → EH 17:24 → 4N 19:00
PROVIDERS: ADMIT Internal Medicine; ATTEND Internal Medicine
PROC: 0HBNXZZ Excision of Left Foot Skin, External Approach (ICD-10-PCS; 2018-05-04)
PROC: 3E0F73Z Introduction of Anti-inflammatory into Respiratory Tract, Via Natural or Artificial Opening (ICD-10-PCS; 2018-05-05)
PROC: 02HV33Z Insertion of Infusion Device into Superior Vena Cava, Percutaneous Approach (ICD-10-PCS; 2018-05-05)
PROC: B548ZZA Ultrasonography of Superior Vena Cava, Guidance (ICD-10-PCS; 2018-05-05)
PROC: 0QBM0ZZ Excision of Left Tarsal, Open Approach (ICD-10-PCS; principal; 2018-05-05 08:00)
DX: M86.172 Other acute osteomyelitis, left ankle and foot (principal); L89.624 Pressure ulcer of left heel, stage 4; I26.99 Other pulmonary embolism without acute cor pulmonale; E11.9 Type 2 diabetes mellitus without complications; B95.62 Methicillin resistant Staphylococcus aureus infection as the cause of diseases classified elsewhere; E66.9 Obesity, unspecified; Z68.37 Body mass index [BMI] 37.0-37.9, adult; E78.00 Pure hypercholesterolemia, unspecified; K21.9 Gastro-esophageal reflux disease without esophagitis; M06.9 Rheumatoid arthritis, unspecified; F17.210 Nicotine dependence, cigarettes, uncomplicated; Z60.2 Problems related to living alone; J44.9 Chronic obstructive pulmonary disease, unspecified; G89.29 Other chronic pain; B95.4 Other streptococcus as the cause of diseases classified elsewhere; K59.03 Drug induced constipation; I11.0 Hypertensive heart disease with heart failure; I50.9 Heart failure, unspecified; I25.2 Old myocardial infarction; Z79.899 Other long term (current) drug therapy; Z90.11 Acquired absence of right breast and nipple; Z79.82 Long term (current) use of aspirin; Z88.1 Allergy status to other antibiotic agents; Z88.2 Allergy status to sulfonamides; Z88.8 Allergy status to other drugs, medicaments and biological substances; Z85.3 Personal history of malignant neoplasm of breast; Z86.73 Personal history of transient ischemic attack (TIA), and cerebral infarction without residual deficits; Z86.14 Personal history of Methicillin resistant Staphylococcus aureus infection; Z80.9 Family history of malignant neoplasm, unspecified
CPT/HCPCS: 00400; 36415; 36600; 71045; 80048; 80202; 81001; 82550; 82553; 82565; 82803; 82962; 83036; 84484; 85025; 85027; 85610; 85652; 85730; 87040; 87070; 87075; 87077; 87086; 87186; 87205; 93005; 93010; 96361; 96374; 96375; 99284; J0878; J1170; J1335; J1642; J2250; J2270; J2405; J2543; J2550; J2704; J3010; J3370; J3490; J7030; J7060

== ENCOUNTER → 2018-06-13 | Outpatient (CLI) | payer MEDICAID ==
--- NOTE | 2018-06-13 10:54 | RADIOLOGY REPORT (SQ) ---
EXAM DESCRIPTION: MRI LT LOWER EXTREMITY COMBO COMPLETED DATE/TIME: 06/13/2018 9:55 am REASON FOR STUDY: NON-PRS CHR ULCER OF LEFT HEEL AND MIDFOOT W FAT LAYER EXPOS (L97.422) L97.422 NO N-PRS CHR ULCER OF LEFT HEEL AND MIDFOOT W FAT LAY COMPARISON: 07/24/2014 TECHNIQUE: Multiplanar imaging of the left ankle to include T1-weighted, postcontrast T1-weighted, a nd T2-weighted images. CONTRAST TYPE AND DOSE: 15 mL Prohance. RENAL FUNCTION: GFR 48 LIMITATIONS: None. FINDINGS: There is a chronic curvilinear defect in the plantar margin of the posterior calcaneus. O verall size of the defect has not changed significantly. There is edema in the adjacent calcaneus. There is an adjacent plantar skin ulcer. Diffuse subcutaneous edema along the medial margin extendin g into the ankle. Chronic periarticular edema in the anterior distal tibia and talus most likely degenerative. No oscar nt effusion. No soft tissue abscess. IMPRESSION: Whole-body abscess with stable size of the defect in the plantar surface of the posterio r calcaneus. There is mild edema in the adjacent bone for which cannot exclude a more acute osteomye litis component. No evidence of sinus tract or other definitive evidence of osteomyelitis. TECHNICAL DOCUMENTATION: JOB ID: [id number] [employer]- All Rights Reserved Reading location - IP/workstation name: [email or web address]
== END ==
LOC: RAD 08:35
PROVIDERS: ATTEND Surgery
DX: L97.422 Non-pressure chronic ulcer of left heel and midfoot with fat layer exposed (principal)
CPT/HCPCS: 73720; A9576

== ENCOUNTER → 2018-08-16 | Outpatient (CLI) | payer MEDICAID ==
--- NOTE | 2018-08-16 10:36 | RADIOLOGY REPORT (SQ) ---
EXAM DESCRIPTION: FOOT LEFT COMPLETE COMPLETED DATE/TIME: 08/16/2018 10:26 am REASON FOR STUDY: NON-PRS CHR ULCER OF LEFT HEEL AND MIDFOOT W FAT LAYER EXPOS (L97.422) L97.422 NO N-PRS CHR ULCER OF LEFT HEEL AND MIDFOOT W FAT LAY COMPARISON: 05/04/2018 and 04/15/2016. NUMBER OF VIEWS: Three views. TECHNIQUE: AP, lateral and oblique radiographic images acquired of the left foot. LIMITATIONS: None. FINDINGS: MINERALIZATION: Normal. BONES: No acute fracture or dislocation. Chronic appearing deformity on the plantar surface of the c alcaneus. No worrisome bone lesions. JOINTS: No effusions. SOFT TISSUES: Soft tissue ulceration in the plantar soft tissues at the calcaneus. No foreign body. OTHER: No other significant finding. IMPRESSION: SOFT TISSUE ULCERATION IN THE PLANTAR SOFT TISSUES AT THE CALCANEUS. CHRONIC APPEARING DEFORMITY ON THE PLANTAR SURFACE OF THE CALCANEUS. NO RADIOGRAPHIC FINDINGS OF OSTEOMYELITIS. TECHNICAL DOCUMENTATION: JOB ID: [id number] [employer]- All Rights Reserved Reading location - IP/workstation name: [email or web address]
[2018-08-16 12:11] LABS: ABSOLUTE BASOPHILS # (AUTO) 0.1 10^3/uL (0.0-0.2); ABSOLUTE EOSINOPHILS # (AUTO) 0.1 10^3/uL (0.0-0.6); ABSOLUTE LYMPHOCYTES (AUTO) 4.1 10^3/uL (0.5-4.7); ABSOLUTE MONOCYTES (AUTO) 0.8 10^3/uL (0.1-1.4); BASOPHILS % (AUTO) 0.9 % (0-2); EOSINOPHILS % (AUTO) 1.2 % (0-6); HEMATOCRIT 41.9 % (36.0-47.0); HEMOGLOBIN 14.2 g/dL (12.0-15.5); LYMPHOCYTES % (AUTO) 50.8 % (13-45); MEAN CORPUSCULAR HEMOGLOBIN 30.1 pg (27.0-33.4); MEAN CORPUSCULAR HGB CONC 33.8 g/dL (32.0-36.0); MEAN CORPUSCULAR VOLUME 89 fl (80-97); MONOCYTES % (AUTO) 10.2 % (3-13); PLATELET COUNT 332 10^3/uL (150-450); RED BLOOD COUNT 4.72 10^6/uL (3.72-5.28); RED CELL DISTRIBUTION WIDTH 16.7 % (11.5-14.0); SEGMENTED NEUTROPHILS % (AUTO) 36.9 % (42-78); TOTAL CELLS COUNTED % (AUTO) 100 %
[2018-08-16 12:45] LABS: ALANINE AMINOTRANSFERASE 23 U/L (9-52); ALBUMIN 4.1 g/dL (3.5-5.0); ALKALINE PHOSPHATASE 76 U/L (38-126); ANION GAP 10 (5-19); ASPARTATE AMINO TRANSFERASE 20 U/L (14-36); BILIRUBIN,DIRECT 0.4 mg/dL (0.0-0.4); BILIRUBIN,TOTAL 0.4 mg/dL (0.2-1.3); BLOOD UREA NITROGEN 15 mg/dL (7-20); CALCIUM 9.6 mg/dL (8.4-10.2); CARBON DIOXIDE 26 mmol/L (22-30); CHLORIDE 104 mmol/L (98-107); GLUCOSE 93 mg/dL (75-110); SODIUM 140.4 mmol/L (137-145); TOTAL PROTEIN 8.1 g/dL (6.3-8.2)
[2018-08-16 13:00] LABS: ERYTHROCYTE SEDIMENTATION RATE 28 mm/hr (0-30)
--- NOTE | 2018-08-16 16:03 | XCELERA REPORT ---
[address] [address] Lower Extremity Venous Evaluation Procedure: A bilateral duplex scan of the lower extremity veins was performed. The evaluation included responses to compression and other maneuvers with patient in the supine and standing positions to assess venous insufficiency. Right Sided Venous Evaluation Deep venous system evaluatiion shows patent veins with no obstruction or significant reflux identified. Sapheno Femoral junction: no reflux. Femoral vein reflux: no reflux. Greater Saphenous vein, Proximal thigh: reflux: no reflux. Greater Saphenous vein, Distal thigh: reflux: no reflux. Greater Saphenous vein, Proximal below knee: reflux: no reflux. No significant Perforators identified. Left Sided Venous Evaluation Deep venous system evaluatiion shows patent veins with no obstruction or significant reflux identified. Sapheno Femoral junction: no reflux. Femoral vein reflux: no reflux. Greater Saphenous vein, Proximal thigh: reflux: no reflux. Greater Saphenous vein, Distal thigh: reflux: no reflux. Greater Saphenous vein, Proximal below knee: reflux: no reflux. No significant Perforators identified. Interpretation Summary No duplex evidence of DVT or obstruction in the bilateral lower extremities. No significant superficial or deep venous reflux noted. Name: LÓPEZ CASTILLO Age: 58 yrs Gender: Female : 1960 Patient Status: Outpatient Patient Location: Study Date: 08/16/2018 11:00 AM Reason For Study: ULCER Ordering Physician: JOSE DE JESUS SMITH Performed By: Rupesh Madrid : JOSE DE JESUS SMITH > Chaka Bennett
--- NOTE | 2018-08-17 08:52 | XCELERA REPORT ---
[address] [address] Lower Extremity Arterial Evaluation Name: LÓPEZ CASTILLO Age: 58 yrs Gender: Female : 1960 Patient Status: Outpatient Patient Location: Study Date: 08/16/2018 10:33 AM Procedure: A color flow and duplex scan of the lower extremity arteries was performed bilaterally with velocity and waveform analysis. Reason For Study: ULCER Ordering Physician: JOSE DE JESUS SMITH Performed By: Rupesh Madrid Measurements and Calculations Right Left GRAIN OILSEED OR PASTURE GROWER PSV 167.6 137.9 cm/sec Prox PFA PSV -87.4 -73.1 cm/sec Prox SFA PSV -71.5 92.3 cm/sec Mid SFA PSV -132.0 -105.5cm/sec Dist SFA PSV -126.4 -111.7cm/sec Prox Pop A PSV 69.5 66.0 cm/sec Dist JUAN JOSE PSV 77.7 86.0 cm/sec Dist RN ACUTE CARE PSV 61.7 123.2 cm/sec Gm Pedis PSV 64.0 cm/sec Right Side Arterial Evaluation Normal velocity and triphasic waveforms noted from the Common Femoral artery to the infrageniculate vessels. 0 % stenosis . Ankle Brachial index was declined by the patient.. Left Side Arterial Evaluation Normal velocity and triphasic waveforms noted from the Common Femoral artery to the infrageniculate vessels. 0 % stenosis . Ankle Brachial index was not done due to bandaging.. Interpretation Summary No hemodynamically significant lesions in the bilateral lower extremities, on duplex imaging, at rest. : JOSE DE JESUS SMITH > Chaka Bennett
== END ==
LOC: SP 09:50
PROVIDERS: ATTEND Preventive Medicine Undersea and Hyperbaric Medicine
DX: E11.621 Type 2 diabetes mellitus with foot ulcer (principal); L97.422 Non-pressure chronic ulcer of left heel and midfoot with fat layer exposed
CPT/HCPCS: 36415; 80053; 83036; 85025; 85652; 86140; 93925; 93970

== ENCOUNTER 2019-04-30 16:45 | Inpatient (IN) | payer SELFPAY ==
[2019-04-30] MEDS ORDERED: IPRATROPIUM/ALBUTEROL 0.5-2.5 MG/3 ML AMPUL NEB ONE (17:11)
[2019-04-30] MEDS ORDERED: NORMAL SALINE 1000 ML 1,000 ML IV ONE (17:38)
[2019-04-30] MEDS ORDERED: ONDANSETRON HCL INJ/PF 4 MG/2 ML SDV IV ONE (18:06)
[2019-04-30] MEDS ORDERED: MORPHINE SULFATE 10 MG/ML INJ IV ONE (18:06)
[2019-04-30 18:07] LABS: ABSOLUTE BASOPHILS # (AUTO) 0.1 10^3/uL (0.0-0.2); ABSOLUTE LYMPHOCYTES (AUTO) 1.6 10^3/uL (0.5-4.7); ABSOLUTE MONOCYTES (AUTO) 0.7 10^3/uL (0.1-1.4); ABSOLUTE NEUT (AUTO) 10.2 10^3/uL (1.7-8.2); BASOPHILS % (AUTO) 0.4 % (0-2); EOSINOPHILS % (AUTO) 0.3 % (0-6); HEMATOCRIT 33.4 % (36.0-47.0); HEMOGLOBIN 11.1 g/dL (12.0-15.5); LYMPHOCYTES % (AUTO) 12.7 % (13-45); MEAN CORPUSCULAR HEMOGLOBIN 29.3 pg (27.0-33.4); MEAN CORPUSCULAR HGB CONC 33.2 g/dL (32.0-36.0); MEAN CORPUSCULAR VOLUME 88 fl (80-97); MONOCYTES % (AUTO) 5.4 % (3-13); PLATELET COUNT 277 10^3/uL (150-450); RED BLOOD COUNT 3.78 10^6/uL (3.72-5.28); RED CELL DISTRIBUTION WIDTH 14.3 % (11.5-14.0); SEGMENTED NEUTROPHILS % (AUTO) 81.2 % (42-78); TOTAL CELLS COUNTED % (AUTO) 100 %; VENOUS BLOOD BASE EXCESS -5.5 mmol/L; VENOUS BLOOD HCO3 19.5 mmol/L (20-32); VENOUS BLOOD PCO2 36.7 mmHg (35-63); VENOUS BLOOD PH 7.34 (7.30-7.42); WHITE BLOOD COUNT 12.6 10^3/uL (4.0-10.5)
[2019-04-30 18:22] LABS: PROTHROMBIN TIME 14.7 SEC (11.4-15.4)
--- NOTE | 2019-04-30 18:27 | EKG REPORT ---
SEVERITY:- ABNORMAL ECG - SINUS TACHYCARDIA LEFT BUNDLE BRANCH BLOCK : Confirmed by: Phillip Aguiar MD 30-Apr-2019 18:26:30
[2019-04-30 18:30] LABS: ALANINE AMINOTRANSFERASE 18 U/L (9-52); ALKALINE PHOSPHATASE 76 U/L (38-126); ANION GAP 6 (5-19); ASPARTATE AMINO TRANSFERASE 18 U/L (14-36); BILIRUBIN,DIRECT 0.3 mg/dL (0.0-0.4); BILIRUBIN,TOTAL 0.7 mg/dL (0.2-1.3); BLOOD UREA NITROGEN 32 mg/dL (7-20); CALCIUM 8.5 mg/dL (8.4-10.2); CARBON DIOXIDE 23 mmol/L (22-30); CHLORIDE 105 mmol/L (98-107); GLUCOSE 145 mg/dL (75-110); POTASSIUM 5.2 mmol/L (3.6-5.0); SODIUM 134.1 mmol/L (137-145); TOTAL PROTEIN 6.1 g/dL (6.3-8.2)
[2019-04-30 19:55] LABS: APPEARANCE,URINE TURBID; BILIRUBIN,URINE NEGATIVE (NEGATIVE); GLUCOSE, URINE NEGATIVE (NEGATIVE); KETONES,URINE NEGATIVE (NEGATIVE); LEUKOCYTE ESTERASE,URINE LARGE (NEGATIVE); NITRITE,URINE POSITIVE (NEGATIVE); PROTEIN,URINE 30 mg/dL (NEGATIVE); URINE SPECIFIC GRAVITY 1.006; UROBILINOGEN,URINE NEGATIVE mg/dL (<2.0)
[2019-04-30 19:58] LABS: COLOR,URINE YELLOW
[2019-04-30] MEDS ORDERED: CEFTRIAXONE 1 GM/D5W RTU 1 GM/50 ML RTUPB IV ONE (20:10)
--- NOTE | 2019-04-30 20:51 | RADIOLOGY REPORT (SQ) ---
EXAM DESCRIPTION: CLINICAL HISTORY: 58 years Female sepsis COMPARISON: 05/05/2018 FINDINGS: The cardiomediastinal silhouette appears unremarkable. No consolidating infiltrates or pleural effusions. No pneumothorax. Linear area of scarring or atelectasis the left lung base IMPRESSION: No acute abnormality is identified.
[2019-04-30] MEDS ORDERED: MIDAZOLAM 2 MG/2 ML INJ ONE (21:38)
[2019-04-30] MEDS ORDERED: MIDAZOLAM HCL 50 MG/100 ML RTUINJ ONE (21:38)
[2019-04-30] MEDS ORDERED: ROCURONIUM BROMIDE INJ 50 MG/5 ML VIAL IV ONE ×2 (21:48→23:56)
[2019-04-30] MEDS ORDERED: ETOMIDATE INJ/PF 20 MG/10 ML SDV IV ONE (21:48)
[2019-04-30] MEDS ORDERED: MIDAZOLAM HCL 50 MG/100 ML RTUINJ IV PRN (21:49)
[2019-04-30] MEDS ORDERED: MIDAZOLAM 2 MG/2 ML INJ IV ONE (21:49)
--- NOTE | 2019-04-30 22:21 | RADIOLOGY REPORT (SQ) ---
XR CHEST 1 VIEW HISTORY: Intubation. COMPARISON: 04/30/2019 FINDINGS: The heart size is within normal limits with mild pulmonary vascular congestion. No consolidation, pleural effusion, or pneumothorax is seen. Left lung base atelectasis. There are no acute bony findings. There is an endotracheal tube 3.3 cm from the leroy. There is also a nasogastric tube with the distal tip under the left hemidiaphragm out of the [id number]. IMPRESSION: Support devices in appropriate position. Mild pulmonary edema pattern.
--- NOTE | 2019-04-30 23:21 | RADIOLOGY REPORT (SQ) ---
EXAM DESCRIPTION: CT CHEST ANGIOGRAPHY WITHOUT THEN WITH IV CONTRAST COMPLETED DATE/TME: 04/30/2019 21:48 CLINICAL HISTORY: 58 years, Female, Eval for PE COMPARISON: 09/12/2012 CTA TECHNIQUE: 648 Images stored on PACS. All CT scanners at this facility use dose modulation, iterative reconstruction, and/or weight based dosing when appropriate to reduce radiation dose to as low as reasonably achievable (ALARA). Axial images with coronal and sagittal MIPS [facility]: Dose Right [facility]: CareDose [facility]: Dose Right [facility]: Teradose 4D [facility]: [employer] LIMITATIONS: None. FINDINGS: Endotracheal tube and enteric tube in place. Cardiomegaly. No intraluminal filling defect to suggest pulmonary embolus. There is very little contrast within the thoracic aorta. No gross evidence for thoracic aortic aneurysm or dissection. No mediastinal or hilar adenopathy. Limited evaluation of the upper abdomen is unremarkable. Osseous structures are grossly intact. No pneumothorax. Emphysematous and fibrotic changes in the upper lobes bilaterally with consolidative changes in each lung base. IMPRESSION: No PE. No aneurysm. No dissection. Emphysematous changes and fibrotic changes in the upper lobes and apices. Bibasilar consolidative changes. TECHNICAL DOCUMENTATION: Quality ID # 436: Final reports with documentation of one or more dose reduction techniques (e.g., Automated exposure control, adjustment of the mA and/or kV according to patient size, use of iterative reconstruction technique) copyright 2011 [employer]- All Rights Reserved
--- NOTE | 2019-04-30 23:36 | ER Document Report ---
ED General - General Chief Complaint: Fever Stated Complaint: POSSIBLE SEPSIS Time Seen by Provider: 04/30/19 17:04 Primary Care Provider: CHER ALFARO MD [Primary Care Provider] - Follow up as needed TRAVEL OUTSIDE OF THE [place] IN LAST 30 DAYS: No - HPI Notes: Patient is a 58-year-old female who presents emergency department for evaluation. The history I get is very distorted, as I only have the patient, and she is confused. She states to me that she is just not feeling well. It was reported to me via EMS that the patient has had a fever for the last several days. The patient states to me that the only reason she is here is "because Li made me come." She denies any pain, states she been taking her medicines. - Related Data Allergies/Adverse Reactions: Paclitaxel,Semi-Synthetic [From Taxol] Allergy (Severe, Verified 05/04/18 13:03) Fever, rash, eyes swell Sulfa (Sulfonamide Antibiotics) Allergy (Severe, Verified 05/04/18 13:03) sulfasalazine [From Azulfidine] Allergy (Severe, Verified 05/04/18 13:03) Fever, rash, swelling multiple antibiotics Allergy (Severe, Uncoded 05/07/18 08:10) n and v, itching, swelling Past Medical History - General Information source: Patient, Emergency Med Personnel - Social History Smoking Status: Former Smoker Drug Abuse: Marijuana Family History: Reviewed & Not Pertinent Patient has suicidal ideation: No Patient has homicidal ideation: No - Past Medical History Cardiac Medical History: Reports: Hx Congestive Heart Failure, Hx Heart Attack - 1993,"silent VT", Hx Hypercholesterolemia, Hx Hypertension - on meds, Hx Pulm onary Embolism, Hx Heart Murmur Pulmonary Medical History: Reports: Hx Asthma, Hx COPD, Hx Pneumonia Denies: Hx Bronchitis Neurological Medical History: Reports: Hx Cerebrovascular Accident - "mild stroke". Denies: Hx Seizures Endocrine Medical History: Reports: Hx Diabetes Mellitus Type 2 - diet controlled Renal/ Medical History: Denies: Hx Peritoneal Dialysis GI Medical History: Reports: Hx Gastroesophageal Reflux Disease Musculoskeletal Medical History: Reports Hx Arthritis - rheumatoid Psychiatric Medical History: Denies: Hx Dementia Infectious Medical History: Reports: Hx MRSA Past Surgical History: Reports: Hx Breast Surgery, Hx Mastectomy - right, 2005 r estrictions , Hx Tonsillectomy, Hx Tubal Ligation - Immunizations Hx Diphtheria, Pertussis, Tetanus Vaccination: Yes Hx Pneumococcal Vaccination: 08/20/09 Review of Systems - Review of Systems -: Yes ROS unobtainable due to patient's medical condition Physical Exam - Vital signs Vitals: Resp Pulse Ox 19 91 L 04/30/19 16:57 04/30/19 16:57 - Notes Notes: Vital signs reviewed, please refer to chart. This is a 58-year-old female appears stated age in mild to moderate distress. She is anxious, clearly confused. She becomes intermittently very agitated, but is redirectable. Head is normocephalic, atraumatic. Pupils equal round, reactive to light. Neck is supple without meningismus. Heart is regular rate and rhythm. Lungs are clear to auscultation bilaterally. Right-sided mastectomy with well-healing surgical scar. Abdomen is soft, nontender, normoactive bowel sounds throughout. Extremities without cyanosis, clubbing. Posterior calves are nontender. Se does have a moderate amount of edema to the left upper extremity, with significant tenderness to palpation. Radial pulses 2+. Sensation appears to be intact. Peripheral pulses are equal. Skin is warm and dry. Patient is awake, alert, oriented x3. She is intermittently confused. She becomes intimately agitated. She has no gross facial asymmetry, moves all 4 extremity spontaneously. Course - Re-evaluation Re-evalutation: 04/30/19 23:34 Patient presents to the emergency department for evaluation. She was febrile in route, given Tylenol by EMS. On arrival it was clear that this patient did have signs of sepsis. Laboratory investigations were ordered. Patient was given IV fluids. She was limited to 1500 mL, which was 30 cc/kg of ideal body weight, given her history of congestive heart failure. Laboratory investigations revealed leukocytosis, abnormal renal function. Her urine does appear to be infected, she was given Rocephin which was tolerated well. Shortly following antibiotic administration and IV fluids, the patient became acutely agitated and more short of breath. She was hyperventilating. She would not hold oxygen on her face. Her heart rate went up into the 140s. Multiple attempts were made to redirect the patient, these were unsuccessful. Given her hyperventilation and tachycardia, decision was made to intubate the patient. Please see separate procedure note. Patient tolerated this well. Given this acute onset of shortness of breath and tachycardia, as well as her history of pulmonary embolus, decision was made to perform a CT angiogram of the chest. Her GFR was low, but the decision was made to override this given her acute change in presentation. CT angiogram was largely unremarkable for any acute findings. Doppler of the left upper extremity was ordered, but will likely be performed tomorrow according to instrument and controls technician. Will contact medicine for admission. 04/30/19 23:44 - Vital Signs Vital signs: Temp Pulse Resp BP Pulse Ox 100.1 F 12 96/60 L 93 04/30/19 23:21 04/30/19 23:21 04/30/19 23:21 04/30/19 23:21 - Laboratory Result Diagrams: 04/30/19 17:44 04/30/19 17:44 Laboratory results interpreted by me: 04/30/19 04/30/19 04/30/19 16:59 17:44 17:44 WBC 12.6 H Hgb 11.1 L Hct 33.4 L RDW 14.3 H Seg Neutrophils % 81.2 H Lymphocytes % 12.7 L Absolute Neutrophils 10.2 H VBG HCO3 Sodium 134.1 L Potassium 5.2 H BUN 32 H Creatinine 1.55 H Est GFR ( Amer) 42 L Est GFR (Non-Af Amer) 34 L Glucose 145 H POC Glucose 154 H Total Protein 6.1 L Albumin 3.0 L Urine Protein Urine Blood Urine Nitrite Ur Leukocyte Esterase 04/30/19 04/30/19 17:44 19:26 WBC Hgb Hct RDW Seg Neutrophils % Lymphocytes % Absolute Neutrophils VBG HCO3 19.5 L Sodium Potassium BUN Creatinine Est GFR ( Amer) Est GFR (Non-Af Amer) Glucose POC Glucose Total Protein Albumin Urine Protein 30 H Urine Blood MODERATE H Urine Nitrite POSITIVE H Ur Leukocyte Esterase LARGE H - Diagnostic Test Radiology reviewed: Reports reviewed Radiology results interpreted by me: 04/30/19 23:38 Chest X-Ray 04/30/19 00:00 IMPRESSION: Support devices in appropriate position. Mild pulmonary edema pattern. Chest X-Ray 04/30/19 20:09 IMPRESSION: No acute abnormality is identified. Chest/Abdomen CTA 04/30/19 21:48 IMPRESSION: No PE. No aneurysm. No dissection. Emphysematous changes and fibrotic changes in the upper lobes and apices. Bibasilar consolidative changes. TECHNICAL DOCUMENTATION: Quality ID # 436: Final reports with documentation of one or more dose reduction techniques (e.g., Automated exposure control, adjustment of the mA and/or kV according to patient size, use of iterative reconstruction technique) copyright 2011 [employer]- All Rights Reserved - EKG Interpretation by Me Additional EKG results interpreted by me: 04/30/19 23:44 Initial EKG reveals sinus tachycardia with a rate of 106 bpm. Left bundle branch block. No significant change in compared to prior study. Repeat EKG revealed sinus tachycardia with a rate of 124 and again no significant change. Procedures - Intubation Orotracheal Time of Intubation: 21:35 Airway evaluation: Loose teeth Mallampati Classification: Class 2 Medications: Etomidate, Other Intubation method: Orotracheal - Rocuronium Blade type: Jez Blade size: 3 Equipment used: Glidescope ETT size: 7.5 Breath Sounds after Intubation: Equal End tidal CO2 confirmed: Yes Intubation Complications: No complications Critical Care Note - Critical Care Note Total time excluding time spent on procedures (mins): 40 Discharge - Discharge Clinical Impression: Sepsis Urinary tract infection Qualifiers: Hematuria presence: without hematuria Acute respiratory failure Qualifiers: Respiratory failure complication: unspecified whether with hypoxia or hypercapnia Qualified Code(s): J96.00 - Acute respiratory failure, unspecified whether with hypoxia or hypercapnia Condition: Fair Disposition: ADMITTED INPATIENT Admitting Provider: Rupali (Hospitalist) Unit Admitted: ICU Referrals: CHER ALFARO MD [Primary Care Provider] - Follow up as needed
[2019-05-01 00:34] LABS: URINE AMPHETAMINES SCREEN NEGATIVE; URINE BARBITURATES SCREEN NEGATIVE; URINE BENZODIAZEPINES SCREEN NEGATIVE; URINE COCAINE SCREEN NEGATIVE; URINE MARIJUANA (THC) SCREEN NEGATIVE; URINE METHADONE SCREEN NEGATIVE; URINE PHENCYCLIDINE SCREEN NEGATIVE
[2019-05-01] MEDS ORDERED: ACETAMINOPHEN 650 MG SUPP.RECT PR PRN (00:56)
[2019-05-01] MEDS ORDERED: DEXTROSE 40% GEL 15 GM TUBE PO PRN ×4 (00:56→08:58)
[2019-05-01] MEDS ORDERED: ONDANSETRON HCL INJ/PF 4 MG/2 ML SDV IV PRN (00:56)
[2019-05-01] MEDS ORDERED: GLUCAGON,HUMAN RECOMB 1 MG INJ SUBCUT PRN (00:56)
[2019-05-01] MEDS ORDERED: PROPOFOL 1,000 MG/100 ML INFUS..BTL IV PRN (00:56)
[2019-05-01] MEDS ORDERED: DEXTROSE 50%-WATER 25 GM/50 ML DISP.SYRIN IV PRN ×4 (00:56→08:58)
[2019-05-01] MEDS ORDERED: DEXTROSE 5%-WATER 250 ML with NOREPINEPHRINE BITARTRATE 4 MG IV PRN ×2 (00:56)
[2019-05-01] MEDS ORDERED: LEVALBUTEROL HCL NEB 0.63 MG/3 ML AMPUL NEB PRN (01:14)
[2019-05-01] MEDS ORDERED: MEROPENEM 1 GM VIAL IV SCH (01:15)
[2019-05-01] MEDS: RINGERS SOLUTION,LACTATED 1,000 ML IV PRN ×3 (02:00→13:49)
[2019-05-01 02:01] LABS: CREATINE KINASE MB 2.84 ng/mL (<4.55)
[2019-05-01 02:04] LABS: TROPONIN I 0.126 ng/mL
[2019-05-01] MEDS: MIDAZOLAM HCL 50 MG/100 ML RTUINJ IV PRN ×3 (02:06→17:21)
[2019-05-01 02:20] LABS: CREATINE KINASE MB 2.71 ng/mL (<4.55); TROPONIN I 0.102 ng/mL
[2019-05-01] MEDS ORDERED: MEROPENEM 1 GM VIAL ONE (03:41)
--- NOTE | 2019-05-01 03:57 | PDOC H&P ---
History of Present Illness Admission Date/PCP: 04/30/2019 23:43 CHER ALFARO MD Patient complains of: Confusion History of Present Illness: LÓPEZ CASTILLO is a 58 year old female who presented to the emergency room via EMS for altered mental status. Upon arising this morning, she was noted by her significant other to be cognitively confused and intermittently agitated and also intermittently hypersomnolent. EMS was called and by her concerned significant other. She was subsequently found to be lethargic and poorly responsive, have a fever of 103.3 F, with a tachycardia in the 120s and a systolic blood pressure in the 80s upon EMS arrival. EMS administered intravenous fluids and brought the patient to the hospital where in the emergency room she was found to have a systolic blood pressure in the 90s, sinus tachycardia in the 110-120 range, and an elevated temperature of 101F. Patient was noted to have swelling in her left upper extremity, an elevated WBC and a urine demonstrating significant pyuria with a positive nitrite. The diagnosis of urosepsis was made and patient was started initially on Rocephin IV by the ER physician. During her ER course she had a sudden change from her initial confusion with delirium when she suddenly became very agitated, tachycardic, combative and hypoxic resulting in her endotracheal intubation and placement on a mechanical ventilator. At the time of my evaluation patient was intubated and unable to provide input into her care. She was subsequently admitted to the ICU for further evaluation and treatment. Past Medical History Past Medical History: Patient is intubated so all information is obtained from current and prior records utilizing any reliable source available. Cardiac Medical History: Reports: Congestive Heart Failure, Coronary Artery Dis ease, DVT, Myocardial Infarction - 1993,"[place]", Hyperlipidema, Hypertension - on meds, Pulmonary Embolism, Heart Murmur Pulmonary Medical History: Reports: Asthma, Chronic Obstructive Pulmonary Disease (COPD), Pneumonia Denies: Bronchitis EENT Medical History: Denies: Cataracts, Ears - Hearing aids Neurological Medical History: Denies: Hemorrhagic CVA, Ischemic CVA, Multiple Sclerosis, Seizures Endocrine Medical History: Reports: Diabetes Mellitus Type 2 - diet controlled Denies: Diabetes Mellitus Type 1, Hyperthyroidism, Hypothyroidism Renal/ Medical History: Denies: Chronic Kidney Disease, Nephrolithiasis Malignancy Medical History: Reports: Breast Cancer - Status post right mastectomy GI Medical History: Reports: Gastroesophageal Reflux Disease Denies: Cirrhosis, Hepatitis Musculoskeltal Medical History: Reports: Arthritis - rheumatoid Denies: Gout Skin Medical History: Denies: Eczema, Psoriasis Psychiatric Medical History: Reports: Tobacco Dependency Denies: Alcohol Dependency, Dementia, Substance Abuse Traumatic Medical History: Reports: None Hematology: Reports: Anemia - hx of Denies: Bleeding Tendencies Infectious Medical History: Reports: Methicillin-Resistant Staph Aureus Past Surgical History Past Surgical History: Patient is intubated so all information is obtained from current and prior records utilizing any reliable source available. Past Surgical History: Reports: Mastectomy - right, 2005, Tonsillectomy, Tubal Ligation Social History Information Source: [facility] Records Lives with: Spouse/Significant other Smoking Status: Former Smoker Frequency of Alcohol Use: Occasional Hx Recreational Drug Use: No Drugs: None Hx Prescription Drug Abuse: No Past Social History Note: Patient is intubated so all information is obtained from current and prior records utilizing any reliable source available. - Advance Directive Resuscitation Status: Full Code Surrogate healthcare decision maker:: Unable to designate a medical surrogate Family History Family History: Malignancy Family History: Patient is intubated so all information is obtained from current and prior records utilizing any reliable source available. Parental Family History Reviewed: Yes Children Family History Reviewed: No Sibling(s) Family History Reviewed.: Yes Medication/Allergy Home Medications: Albuterol Sulfate [Proair HFA] 2 puff IH Q4HP PRN 05/04/18 Alprazolam [Xanax 0.5 mg Tablet] 0.5 mg PO TIDP PRN 05/04/18 Apixaban [Eliquis 5 mg Tablet] 10 mg PO [id number] MDD LAST DOSE WOULD BE 05-05-18 05/04/18 Aspirin [Adult Low Dose Aspirin EC] 81 mg PO DAILY 05/04/18 Atorvastatin Calcium [Lipitor 10 mg Tablet] 10 mg PO QHS 05/04/18 Esomeprazole Mag Trihydrate [Nexium] 40 mg PO DAILY 05/04/18 Etanercept [Enbrel Sureclick] 50 mg SQ TH 05/04/18 Gabapentin [Neurontin 300 mg Capsule] 900 mg PO QHS 05/04/18 Lisinopril [Zestril] 2.5 mg PO BID 05/04/18 Mometasone Furoate [Nasonex] 1 spray NASL DAILYP PRN 05/04/18 Oxycodone HCl 15 mg PO Q8 05/04/18 Aspirin [Aspirin 81 mg Chewable Tablet] 81 mg PO DAILY tab.chew 05/09/18 Daptomycin [Cubicin Inj 500 mg Vial] 500 mg IV DAILY #42 vial 05/09/18 Allergies/Adverse Reactions: Paclitaxel,Semi-Synthetic [From Taxol] Allergy (Severe, Verified 05/04/18 13:03) Fever, rash, eyes swell Sulfa (Sulfonamide Antibiotics) Allergy (Severe, Verified 05/04/18 13:03) sulfasalazine [From Azulfidine] Allergy (Severe, Verified 05/04/18 13:03) Fever, rash, swelling multiple antibiotics Allergy (Severe, Uncoded 05/07/18 08:10) n and v, itching, swelling Review of Systems ROS unobtainable: Due to endotracheal tube Physical Exam Vital Signs: Temp Pulse Resp BP Pulse Ox 100.1 F 12 96/60 L 93 04/30/19 23:21 04/30/19 23:21 04/30/19 23:21 04/30/19 23:21 Intake & Output 04/28/19 04/29/19 04/30/19 23:59 23:59 23:59 Intake Total 1000 Balance 1000 Weight 79.471 kg General appearance: PRESENT: no acute distress, other - Intubated endotracheally on a mechanical ventilator Head exam: PRESENT: atraumatic, normocephalic Eye exam: ABSENT: conjunctival injection, scleral icterus Ear exam: PRESENT: normal external ear exam. ABSENT: bleeding, drainage Mouth exam: PRESENT: dry mucosa, neck supple, tongue midline, other - Endotracheal tube in good position, orogastric tube in good position Neck exam: ABSENT: thyromegaly, tracheal deviation Respiratory exam: PRESENT: clear to auscultation lisbeth, symmetrical, other - End otracheally intubated with mechanical ventilation Cardiovascular exam: PRESENT: RRR. ABSENT: clicks, gallop, rubs Pulses: PRESENT: normal radial pulses, normal dorsalis pedis pul Vascular exam: PRESENT: normal capillary refill. ABSENT: pallor GI/Abdominal exam: PRESENT: normal bowel sounds, soft Rectal exam: PRESENT: deferred Extremities exam: PRESENT: +2 edema - Left upper extremity consistent with lymphedema. ABSENT: joint swelling, pedal edema Musculoskeletal exam: ABSENT: deformity, dislocation Neurological exam: PRESENT: altered - Chemically sedated for intubation. ABSENT: other - Endotracheally intubated and mechanically ventilated precluding comprehensive evaluation. Psychiatric exam: PRESENT: other - Endotracheally intubated and mechanically ventilated precluding comprehensive evaluation. Skin exam: PRESENT: dry, intact, warm. ABSENT: jaundice, rash, urticaria Results Laboratory Results: 04/30/19 17:44 04/30/19 17:44 04/30/19 04/30/19 04/30/19 17:44 17:44 17:44 WBC 12.6 H RBC 3.78 Hgb 11.1 L Hct 33.4 L MCV 88 MCH 29.3 MCHC 33.2 RDW 14.3 H Plt Count 277 Seg Neutrophils % 81.2 H Lymphocytes % 12.7 L Monocytes % 5.4 Eosinophils % 0.3 Basophils % 0.4 Absolute Neutrophils 10.2 H Absolute Lymphocytes 1.6 Absolute Monocytes 0.7 Absolute Eosinophils 0.0 Absolute Basophils 0.1 VBG pH VBG pCO2 VBG HCO3 VBG Base Excess Sodium 134.1 L Potassium 5.2 H Chloride 105 Carbon Dioxide 23 Anion Gap 6 BUN 32 H Creatinine 1.55 H Est GFR ( Amer) 42 L Est GFR (Non-Af Amer) 34 L Glucose 145 H Lactic Acid 0.7 Calcium 8.5 Total Bilirubin 0.7 AST 18 ALT 18 Alkaline Phosphatase 76 Total Protein 6.1 L Albumin 3.0 L Urine Color Urine Appearance Urine pH Ur Specific [place] Urine Protein Urine Glucose (UA) Urine Ketones Urine Blood Urine Nitrite Ur Leukocyte Esterase Urine WBC (Auto) Urine RBC (Auto) 04/30/19 04/30/19 17:44 19:26 WBC RBC Hgb Hct MCV MCH MCHC RDW Plt Count Seg Neutrophils % Lymphocytes % Monocytes % Eosinophils % Basophils % Absolute Neutrophils Absolute Lymphocytes Absolute Monocytes Absolute Eosinophils Absolute Basophils VBG pH 7.34 VBG pCO2 36.7 VBG HCO3 19.5 L VBG Base Excess -5.5 Sodium Potassium Chloride Carbon Dioxide Anion Gap BUN Creatinine Est GFR ( Amer) Est GFR (Non-Af Amer) Glucose Lactic Acid Calcium Total Bilirubin AST ALT Alkaline Phosphatase Total Protein Albumin Urine Color YELLOW Urine Appearance TURBID Urine pH 5.0 Ur Specific [place] 1.006 Urine Protein 30 H Urine Glucose (UA) NEGATIVE Urine Ketones NEGATIVE Urine Blood MODERATE H Urine Nitrite POSITIVE H Ur Leukocyte Esterase LARGE H Urine WBC (Auto) >182 Urine RBC (Auto) 5 Impressions: Chest X-Ray 04/30/19 20:09 IMPRESSION: No acute abnormality is identified. Chest/Abdomen CTA 04/30/19 21:48 IMPRESSION: No PE. No aneurysm. No dissection. Emphysematous changes and fibrotic changes in the upper lobes and apices. Bibasilar consolidative changes. TECHNICAL DOCUMENTATION: Quality ID # [id number]: Final reports with documentation of one or more dose reduction techniques (e.g., Automated exposure control, adjustment of the mA and/or kV according to patient size, use of iterative reconstruction technique) copyright 2011 [employer]- All Rights Reserved Assessment and Plan - Diagnosis (1) Urinary tract infection Qualifiers: Urinary tract infection type: site unspecified Hematuria presence: without hematuria Qualified Code(s): N39.0 - Urinary tract infection, site not specified Is this a current diagnosis for this admission?: Yes Plan: Patient was treated with IV meropenem 1 g administered every 6 hours, as her urinary tract infection is presenting as an acute urosepsis. Her disease process will be monitored with daily CBCs, magnesium levels and metabolic profiles. Serial lactic acid levels be performed. (2) Sepsis Qualifiers: Sepsis type: sepsis due to unspecified organism Qualified Code(s): A41.9 - Sepsis, unspecified organism Is this a current diagnosis for this admission?: Yes Plan: Patient is admitted to the ICU for respiratory failure which was probably precipitated by her urosepsis. Additionally she has been marginally hypotensive and significantly tachycardic due to her sepsis. She has also been noted to have acute encephalopathic changes again most probably as a result of her urosepsis. The course of her sepsis will be monitored with serial CBCs and lactic acid levels. She will be treated with sepsis doses of meropenem (1 g IV every 6 hours) as single drug therapy for her acute urosepsis. She is being monitored in the intensive care unit due to her endotracheal intubation and mechanical ventilation necessitated by acute respiratory failure which was secondary, at least in part, to her acute encephalopathy. (3) Acute respiratory failure with hypoxia Is this a current diagnosis for this admission?: Yes Plan: Patient be treated with mechanical ventilation via endotracheal intubation in the intensive care unit. Dr. Melendez will be consulted for pulmonology input. Arterial blood gases be monitored on a daily basis. (4) Acute encephalopathy Is this a current diagnosis for this admission?: Yes Plan: The patient's acute encephalopathy will be reassessed when she has been extubated and is no longer being sedated. (5) Chronic obstructive pulmonary disease Qualifiers: COPD type: unspecified COPD Qualified Code(s): J44.9 - Chronic obstructive pulmonary disease, unspecified Is this a current diagnosis for this admission?: Yes Plan: Patient has a history of chronic obstructive pulmonary disease and is currently being treated with mechanical ventilation and endotracheal intubation. Daily ABGs will be used to monitor the patient's course and care will be taken not to hyper oxygenate the patient such that she may develop CO2 retention. Dr. Melendez will be consulted for pulmonology input. (6) Diet-controlled type 2 diabetes mellitus Is this a current diagnosis for this admission?: Yes Plan: Patient will be returned to a diabetic diet once she has been extubated and is awake and alert enough to take oral nutrition. Hemoglobin A1c will be obtained to assess her current diet only therapy. - Time Time Spent with patient: Less than 15 minutes Medications reviewed and adjusted accordingly: Yes Anticipated discharge: Home - Inpatient Certification Based on my medical assessment, after consideration of the patient's comorbidities, presenting symptoms, or acuity I expect that the services needed warrant INPATIENT care.: Yes I certify that my determination is in accordance with my understanding of Medicare's requirements for reasonable and necessary INPATIENT services [42 CFR 412.3e].: Yes Medical Necessity: Need Close Monitoring Due to Risk of Patient Decompensation, Need For IV Fluids, Need For Continuous Telemetry Monitoring, Need for Nebulizer Therapy and Monitoring of Response, Need for Neurological Checks, Need for IV Antibiotics, Risk of Complication if Not Cared For in Hospital
[2019-05-01] MEDS ORDERED: MEROPENEM 1 GM VIAL IV PRN (04:00)
[2019-05-01] MEDS ORDERED: MEROPENEM 1 GM in NORMAL SALINE 50 ML IV ONE (04:30)
[2019-05-01] MEDS: HEPARIN SOD (PORCINE) 5,000 UNIT/ML 1 ML SYRINGE SUBCUT SCH ×3 (05:11→21:21)
[2019-05-01 05:23] LABS: ARTERIAL BLOOD FIO2 28%; ARTERIAL BLOOD H2CO3 1.13 mmol/L (1.05-1.35); ARTERIAL BLOOD HCO3 22.6 mmol/L (20-24); ARTERIAL BLOOD O2 SATURATION 96.6 % (94-98); ARTERIAL BLOOD PCO2 37.6 mmHg (35-45); ARTERIAL BLOOD PO2 86.2 mmHg (80-100); ARTERIAL BLOOD TOTAL CO2 23.8 mmol/L (21-25)
--- NOTE | 2019-05-01 07:44 | EKG REPORT ---
SEVERITY:- ABNORMAL ECG - SINUS RHYTHM IVCD, CONSIDER ATYPICAL LBBB : Confirmed by: Phillip Aguiar MD 01-May-2019 07:43:51
--- NOTE | 2019-05-01 07:45 | EKG REPORT ---
SEVERITY:- ABNORMAL ECG - SINUS TACHYCARDIA IVCD, CONSIDER ATYPICAL LBBB : Confirmed by: Phillip Aguiar MD 01-May-2019 07:44:01
[2019-05-01 08:21] LABS: CREATINE KINASE MB 2.48 ng/mL (<4.55); TROPONIN I 0.065 ng/mL
--- NOTE | 2019-05-01 08:44 | RADIOLOGY REPORT (SQ) ---
EXAM DESCRIPTION: CHEST SINGLE VIEW COMPLETED DATE/TIME: 05/01/2019 6:02 am REASON FOR STUDY: Intubated on ventilator COMPARISON: 04/30/2019 NUMBER OF VIEWS: One view. TECHNIQUE: Single frontal radiographic image of the chest acquired. LIMITATIONS: None. FINDINGS: LUNGS AND PLEURA: Diffuse interstitial pattern, small left pleural effusion and associated airspace disease not significantly changed. No pneumothorax. MEDIASTINUM AND HEART: Stable heart size and mediastinal structures. SUPPORT DEVICES: Appropriate location without change. BONY STRUCTURES: No acute findings. HARDWARE: None. OTHER: No other significant finding. IMPRESSION: No significant change. No pneumothorax. Reading location - IP/workstation name: [email or web address]
[2019-05-01] MEDS ORDERED: GLUCAGON,HUMAN RECOMB 1 MG INJ IM PRN (08:58)
--- NOTE | 2019-05-01 09:05 | PDOC PROGRESS REPORT ---
Subjective Progress Note for:: 05/01/19 Subjective:: 58 year old female who presented to the emergency room via EMS for altered mental status. Upon arising this morning, she was noted by her significant other to be cognitively confused and intermittently agitated and also intermittently hypersomnolent. EMS was called and by her concerned significant other. She was subsequently found to be lethargic and poorly responsive, have a fever of 103.3 F, with a tachycardia in the 120s and a systolic blood pressure in the 80s upon EMS arrival. EMS administered intravenous fluids and brought the patient to the hospital where in the emergency room she was found to have a systolic blood pressure in the 90s, sinus tachycardia in the 110-120 range, and an elevated temperature of 101F. Patient was noted to have swelling in her left upper extremity, an elevated WBC and a urine demonstrating significant pyuria with a positive nitrite. The diagnosis of urosepsis was made and patient was started initially on Rocephin IV by the ER physician. During her ER course she had a sudden change from her initial confusion with delirium when she suddenly became very agitated, tachycardic, combative and hypoxic resulting in her endotracheal intubation and placement on a mechanical ventilator. At the time of my evaluation patient was intubated and unable to provide input into her care. She was subsequently admitted to the ICU for further evaluation and treatment. [id number]-old female came to the emergency room altered mental status. In the emergency room she was confused and agitated intermittently hypers omnolent. She also had fever of 103.3 in the ER and became hypotensive requiring pressors later on she was intubated. No acute events in the ICU. Temperature this morning is 97.5 blood pressure is 94/64. Presently on normal saline at 250 cc/h plan is to decrease the normal saline 200 cc/h. Troponins are trending down and EKG shows ST depression and that we may request for cardiology consult today. Will continue to do look for the serial troponins. Reason For Visit: SEPSIS SECONDARY TO URINARY TRACT INFECTION Physical Exam Vital Signs: Temp Pulse Resp BP Pulse Ox 97.7 F 85 16 103/65 100 05/01/19 08:00 05/01/19 08:14 05/01/19 08:14 05/01/19 08:00 05/01/19 08:14 Intake & Output 04/30/19 05/01/19 05/02/19 06:59 06:59 06:59 Intake Total 2200 Output Total 745 300 Balance 1455 -300 Weight 82.6 kg General appearance: PRESENT: no acute distress, other - Patient is intubated under sedation with Versed. Head exam: PRESENT: atraumatic Eye exam: PRESENT: PERRLA Ear exam: PRESENT: normal external ear exam Mouth exam: PRESENT: moist, tongue midline Teeth exam: PRESENT: poor dentation Neck exam: ABSENT: carotid bruit, JVD, lymphadenopathy, thyromegaly Respiratory exam: PRESENT: decreased breath sounds Cardiovascular exam: PRESENT: RRR. ABSENT: diastolic murmur, rubs, systolic murmur GI/Abdominal exam: PRESENT: normal bowel sounds, soft, other - NG tube in place.. ABSENT: distended, guarding, mass, organolmegaly, rebound, tenderness Rectal exam: PRESENT: deferred Gentrourinary exam: PRESENT: indwelling catheter Extremities exam: PRESENT: full ROM. ABSENT: calf tenderness, clubbing, pedal edema Neurological exam: PRESENT: other - Patient is intubated under sedation. Psychiatric exam: PRESENT: appropriate affect, normal mood. ABSENT: homicidal ideation, suicidal ideation Results Laboratory Results: 04/30/19 17:44 04/30/19 17:44 04/30/19 04/30/19 04/30/19 17:44 17:44 17:44 WBC 12.6 H RBC 3.78 Hgb 11.1 L Hct 33.4 L MCV 88 MCH 29.3 MCHC 33.2 RDW 14.3 H Plt Count 277 Seg Neutrophils % 81.2 H Lymphocytes % 12.7 L Monocytes % 5.4 Eosinophils % 0.3 Basophils % 0.4 Absolute Neutrophils 10.2 H Absolute Lymphocytes 1.6 Absolute Monocytes 0.7 Absolute Eosinophils 0.0 Absolute Basophils 0.1 Carbonic Acid HCO3/H2CO3 Ratio ABG pH ABG pCO2 ABG pO2 ABG HCO3 ABG O2 Saturation ABG Base Excess VBG pH VBG pCO2 VBG HCO3 VBG Base Excess FiO2 Sodium 134.1 L Potassium 5.2 H Chloride 105 Carbon Dioxide 23 Anion Gap 6 BUN 32 H Creatinine 1.55 H Est GFR ( Amer) 42 L Est GFR (Non-Af Amer) 34 L Glucose 145 H Lactic Acid 0.7 Calcium 8.5 Total Bilirubin 0.7 AST 18 ALT 18 Alkaline Phosphatase 76 Total Protein 6.1 L Albumin 3.0 L Urine Color Urine Appearance Urine pH Ur Specific [place] Urine Protein Urine Glucose (UA) Urine Ketones Urine Blood Urine Nitrite Ur Leukocyte Esterase Urine WBC (Auto) Urine RBC (Auto) 04/30/19 04/30/19 05/01/19 17:44 19:26 04:50 WBC RBC Hgb Hct MCV MCH MCHC RDW Plt Count Seg Neutrophils % Lymphocytes % Monocytes % Eosinophils % Basophils % Absolute Neutrophils Absolute Lymphocytes Absolute Monocytes Absolute Eosinophils Absolute Basophils Carbonic Acid 1.13 HCO3/H2CO3 Ratio 20:1 ABG pH 7.40 ABG pCO2 37.6 ABG pO2 86.2 ABG HCO3 22.6 ABG O2 Saturation 96.6 ABG Base Excess -2.0 VBG pH 7.34 VBG pCO2 36.7 VBG HCO3 19.5 L VBG Base Excess -5.5 FiO2 28% Sodium Potassium Chloride Carbon Dioxide Anion Gap BUN Creatinine Est GFR ( Amer) Est GFR (Non-Af Amer) Glucose Lactic Acid Calcium Total Bilirubin AST ALT Alkaline Phosphatase Total Protein Albumin Urine Color YELLOW Urine Appearance TURBID Urine pH 5.0 Ur Specific [place] 1.006 Urine Protein 30 H Urine Glucose (UA) NEGATIVE Urine Ketones NEGATIVE Urine Blood MODERATE H Urine Nitrite POSITIVE H Ur Leukocyte Esterase LARGE H Urine WBC (Auto) >182 Urine RBC (Auto) 5 04/30/19 04/30/19 05/01/19 17:44 17:44 01:45 Creatine Kinase 189 H 166 H CK-MB (CK-2) 2.84 Troponin I 0.126 05/01/19 05/01/19 05/01/19 01:45 07:30 07:30 Creatine Kinase 137 H CK-MB (CK-2) 2.71 2.48 Troponin I 0.102 0.065 Impressions: Chest/Abdomen CTA 04/30/19 21:48 IMPRESSION: No PE. No aneurysm. No dissection. Emphysematous changes and fibrotic changes in the upper lobes and apices. Bibasilar consolidative changes. TECHNICAL DOCUMENTATION: Quality ID # [id number]: Final reports with documentation of one or more dose reduction techniques (e.g., Automated exposure control, adjustment of the mA and/or kV according to patient size, use of iterative reconstruction technique) copyright 2011 [employer]- All Rights Reserved Chest X-Ray 05/01/19 06:00 IMPRESSION: No significant change. No pneumothorax. Assessment and Plan - Diagnosis (1) Acute respiratory failure with hypoxia Is this a current diagnosis for this admission?: Yes Plan: Patient be treated with mechanical ventilation via endotracheal intubation in the intensive care unit. Dr. Melendez will be consulted for pulmonology input. Arterial blood gases be monitored on a daily basis. 05/01/2019-acute respiratory failure with hypoxia most likely secondary to consolidative changes seen in the CT scan. Patient might have community- acquired pneumonia. May be gram-positive organisms responsible. Today ABG pH is 7.4/PCO2 37.6 PO2 86 and bicarb is 23.8 this is on 30% oxygen. We could to keep her ventilator today probably extubate her tomorrow. Currently on IV meropenem and cultures are pending. plan To do the daily chest x-rays and ABGs. (2) Acute encephalopathy Is this a current diagnosis for this admission?: Yes Plan: The patient's acute encephalopathy will be reassessed when she has been extubated and is no longer being sedated. 05/01/2019-patient was admitted with altered mental status/acute encephalopathy. Altered mental status most likely secondary to sepsis and acute respiratory failure. Plan is to reevaluate the patient after the extubation. Plan to arrange for the CT head without contrast today. (3) Urinary tract infection Qualifiers: Urinary tract infection type: site unspecified Hematuria presence: without hematuria Qualified Code(s): N39.0 - Urinary tract infection, site not specified Is this a current diagnosis for this admission?: Yes Plan: Patient was treated with IV meropenem 1 g administered every 6 hours, as her urinary tract infection is presenting as an acute urosepsis. Her disease process will be monitored with daily CBCs, magnesium levels and metabolic profiles. Serial lactic acid levels be performed. 05/01/2019-patient came in with urinary tract infection probably causing urosepsis. Presently on IV meropenem every 6 hours. Urine cultures blood cultures are pending today's labs are pending also. Latest lactic acid level is 0.7. (4) Sepsis Qualifiers: Sepsis type: sepsis due to unspecified organism Qualified Code(s): A41.9 - Sepsis, unspecified organism Is this a current diagnosis for this admission?: Yes Plan: Patient is admitted to the ICU for respiratory failure which was probably precipitated by her urosepsis. Additionally she has been marginally hypotensive and significantly tachycardic due to her sepsis. She has also been noted to have acute encephalopathic changes again most probably as a result of her urosepsis. The course of her sepsis will be monitored with serial CBCs and lactic acid levels. She will be treated with sepsis doses of meropenem (1 g IV every 6 hours) as single drug therapy for her acute urosepsis. She is being monitored in the intensive care unit due to her endotracheal intubation and mechanical ventilation necessitated by acute respiratory failure which was secondary, at least in part, to her acute encephalopathy. 05/01/2019-patient came into sepsis altered mental status, UTI, acute respiratory failure with fever of more than 101, tachycardic and hypotensive. Presently intubated and on IV meropenem. (5) Diet-controlled type 2 diabetes mellitus Is this a current diagnosis for this admission?: Yes Plan: Patient will be returned to a diabetic diet once she has been extubated and is awake and alert enough to take oral nutrition. Hemoglobin A1c will be obtained to assess her current diet only therapy. 05/01/2019-patient has history of type 2 diabetes mellitus. Diet controlled. Presently intubated and n.p.o. Plan to follow the hemoglobin A1c and start on insulin sliding scale. Her blood sugars this morning 145. (6) Hyponatremia Is this a current diagnosis for this admission?: Yes Plan: 05/01/2019-patient's latest serum sodium is 134. Hyponatremia may be secondary to poor oral intake/sepsis. She is presently on Ringer lactate to 250 cc/h plan is to decrease the IV fluids to 100 cc/h from this morning. (7) Hyperkalemia Is this a current diagnosis for this admission?: Yes Plan: 05/01/2019-serum potassium is 5.2. Presently on Ringer lactate. Plan to switch the fluids to normal saline from this morning. Recheck the potassium levels tomorrow. Hyperkalemia may be secondary to NARDA. (8) Elevated troponin Is this a current diagnosis for this admission?: Yes Plan: 05/01/2019-patient came with elevated troponins and nonspecific ST depression on the EKG these findings may be secondary to demand supply mismatch due to acute respiratory failure with possible underlying pneumonia. Cardiology consult was requested be going to continue to do the serial CPKs and Troponins. (9) Pneumonia Is this a current diagnosis for this admission?: Yes Plan: 05/01/2019-CT scan done in the emergency room suggestive of consolidation changes in the lung bases. Most likely secondary to community-acquired pneumonia. Presently on IV meropenem. Most likely gram-positive organism responsible. Cultures are pending so far. - Time Time Spent with patient: 25-34 minutes Medications reviewed and adjusted accordingly: Yes Anticipated discharge: Home
--- NOTE | 2019-05-01 09:33 | RADIOLOGY REPORT (SQ) ---
EXAM DESCRIPTION: HAND LEFT 2 VIEWS COMPLETED DATE/TIME: 05/01/2019 9:01 am REASON FOR STUDY: pain COMPARISON: None. EXAM PARAMETERS: NUMBER OF VIEWS: Two view. TECHNIQUE: AP and lateral radiographic images acquired of the left hand. LIMITATIONS: Support apparatus 2nd phalanx. FINDINGS: MINERALIZATION: Osteopenia. BONES: No acute fracture or dislocation. No worrisome bone lesions. JOINTS: Intact SOFT TISSUES: No soft tissue swelling. No foreign body. OTHER: No other significant finding. IMPRESSION: No acute findings. TECHNICAL DOCUMENTATION: JOB ID: [id number] [employer] All Rights Reserved Reading location - IP/workstation name: [email or web address]
[2019-05-01] MEDS: FAMOTIDINE INJ/PF 20 MG/2 ML SDV IV SCH ×2 (09:43→21:21)
--- NOTE | 2019-05-01 10:12 | PDOC CONSULTATION ---
Consultation Consult Date: 05/01/19 Provider Consulted: TAO MULLEN Consult reason:: elevated cardiac biomarker History of Present Illness Admission Date/PCP: 05/01/19 00:00 CHER ALFARO MD History of Present Illness: LÓPEZ CASTILLO is a 58 year old female Patient with past medical history of COPD, chronic cigarette smoking, history of DVT, chronic arthritis with pain was brought into ER last night with history of confusion at home. According to her boyfriend patient had been confused for the last 2 to 3 days and having burning sensation on micturition and EMS found her in a febrile state. In the ER patient was found to be tachycardic and at some point got intubated for agitation and delirium. We were consulted today to evaluate patient for borderline elevated troponin levels. Patient seen at bedside and is currently sedated and on a mechanical ventilator. Patient's s ignificant other claims that he has been with the patient for the last 7 years [place] and has had long-standing history of severe arthritis for which she is on chronic opioid therapy. He does not recollect all her medical problems but denies knowledge of any history of cardiac stents or bypass surgery and patient. He claims that the patient smokes significantly as well as drinks liquor at least moderately. He admits to patient being short of breath on a chronic basis but denies any knowledge of any history of chest pains. He is not aware of patient's family history. He claims that patient has been from her previous aspirin for many years. 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 Past Medical History Cardiac Medical History: Reports: Congestive Heart Failure, Coronary Artery Disease, DVT, Myocardial Infarction - 1993,"silent IA", Hyperlipidema, Hyperte nsion - on meds, Pulmonary Embolism, Heart Murmur Pulmonary Medical History: Reports: Asthma, Chronic Obstructive Pulmonary Disease (COPD), Pneumonia Denies: Bronchitis EENT Medical History: Denies: Cataracts, Ears - Hearing aids Neurological Medical History: Denies: Hemorrhagic CVA, Ischemic CVA, Multiple Sclerosis, Seizures Endocrine Medical History: Reports: Diabetes Mellitus Type 2 - diet controlled Denies: Diabetes Mellitus Type 1, Hyperthyroidism, Hypothyroidism Renal/ Medical History: Denies: Chronic Kidney Disease, Nephrolithiasis Malignancy Medical History: Reports: Breast Cancer - Status post right mastectomy GI Medical History: Reports: Gastroesophageal Reflux Disease Denies: Cirrhosis, Hepatitis Musculoskeltal Medical History: Reports: Arthritis - rheumatoid Denies: Gout Skin Medical History: Denies: Eczema, Psoriasis Psychiatric Medical History: Reports: Tobacco Dependency Denies: Alcohol Dependency, Dementia, Substance Abuse Traumatic Medical History: Reports: None Hematology: Reports: Anemia - hx of Denies: Sickle Cell Disease, Bleeding Tendencies Infectious Medical History: Reports: Methicillin-Resistant Staph Aureus Past Surgical History Past Surgical History: Reports: Mastectomy - right, 2005, Tonsillectomy, Tubal Ligation Denies: Amputation Social History Information Source: Friend Lives with: Spouse/Significant other Smoking Status: Current Every Day Smoker Frequency of Alcohol Use: Occasional - History of moderate alcohol intake per significant other. Hx Recreational Drug Use: No Drugs: None Hx Prescription Drug Abuse: No - Advance Directive Resuscitation Status: Full Code Family History Family History: Malignancy, Other - Patient sedated and could not provide any history. Limited history obtained from significant other. Parental Family History Reviewed: No - Could not be elicited Children Family History Reviewed: Unknown Sibling(s) Family History Reviewed.: Unknown Medication/Allergy Home Medications: Oxycodone HCl [Oxy-Ir 5 mg Tablet] 5 mg PO ASDIR PRN MDD SEE LABEL COMMENTS 05/01/19 Allergies/Adverse Reactions: Paclitaxel,Semi-Synthetic [From Taxol] Allergy (Severe, Verified 05/04/18 13:03) Fever, rash, eyes swell Sulfa (Sulfonamide Antibiotics) Allergy (Severe, Verified 05/04/18 13:03) sulfasalazine [From Azulfidine] Allergy (Severe, Verified 05/04/18 13:03) Fever, rash, swelling multiple antibiotics Allergy (Severe, Uncoded 05/07/18 08:10) n and v, itching, swelling Review of Systems Constitutional: PRESENT: fever(s) Cardiovascular: PRESENT: dyspnea on exertion Respiratory: PRESENT: dyspnea Genitourinary: PRESENT: other - History of burning sensation micturition per significant other Musculoskeletal: PRESENT: other - History of severe arthritis and chronic joint pains Neurological: PRESENT: confusion Physical Exam Vital Signs: Temp Pulse Resp BP Pulse Ox 97.7 F 85 16 103/65 100 05/01/19 08:00 05/01/19 08:14 05/01/19 08:14 05/01/19 08:00 05/01/19 08:14 Intake & Output 04/30/19 05/01/19 05/02/19 06:59 06:59 06:59 Intake Total 2200 100 Output Total 745 300 Balance 1455 -200 Weight 82.6 kg Results Laboratory Results: 04/30/19 17:44 04/30/19 17:44 04/30/19 04/30/19 04/30/19 17:44 17:44 17:44 WBC 12.6 H RBC 3.78 Hgb 11.1 L Hct 33.4 L MCV 88 MCH 29.3 MCHC 33.2 RDW 14.3 H Plt Count 277 Seg Neutrophils % 81.2 H Lymphocytes % 12.7 L Monocytes % 5.4 Eosinophils % 0.3 Basophils % 0.4 Absolute Neutrophils 10.2 H Absolute Lymphocytes 1.6 Absolute Monocytes 0.7 Absolute Eosinophils 0.0 Absolute Basophils 0.1 Carbonic Acid HCO3/H2CO3 Ratio ABG pH ABG pCO2 ABG pO2 ABG HCO3 ABG O2 Saturation ABG Base Excess VBG pH VBG pCO2 VBG HCO3 VBG Base Excess FiO2 Sodium 134.1 L Potassium 5.2 H Chloride 105 Carbon Dioxide 23 Anion Gap 6 BUN 32 H Creatinine 1.55 H Est GFR ( Amer) 42 L Est GFR (Non-Af Amer) 34 L Glucose 145 H Lactic Acid 0.7 Calcium 8.5 Total Bilirubin 0.7 AST 18 ALT 18 Alkaline Phosphatase 76 Total Protein 6.1 L Albumin 3.0 L Urine Color Urine Appearance Urine pH Ur Specific [place] Urine Protein Urine Glucose (UA) Urine Ketones Urine Blood Urine Nitrite Ur Leukocyte Esterase Urine WBC (Auto) Urine RBC (Auto) 04/30/19 04/30/19 05/01/19 17:44 19:26 04:50 WBC RBC Hgb Hct MCV MCH MCHC RDW Plt Count Seg Neutrophils % Lymphocytes % Monocytes % Eosinophils % Basophils % Absolute Neutrophils Absolute Lymphocytes Absolute Monocytes Absolute Eosinophils Absolute Basophils Carbonic Acid 1.13 HCO3/H2CO3 Ratio 20:1 ABG pH 7.40 ABG pCO2 37.6 ABG pO2 86.2 ABG HCO3 22.6 ABG O2 Saturation 96.6 ABG Base Excess -2.0 VBG pH 7.34 VBG pCO2 36.7 VBG HCO3 19.5 L VBG Base Excess -5.5 FiO2 28% Sodium Potassium Chloride Carbon Dioxide Anion Gap BUN Creatinine Est GFR ( Amer) Est GFR (Non-Af Amer) Glucose Lactic Acid Calcium Total Bilirubin AST ALT Alkaline Phosphatase Total Protein Albumin Urine Color YELLOW Urine Appearance TURBID Urine pH 5.0 Ur Specific [place] 1.006 Urine Protein 30 H Urine Glucose (UA) NEGATIVE Urine Ketones NEGATIVE Urine Blood MODERATE H Urine Nitrite POSITIVE H Ur Leukocyte Esterase LARGE H Urine WBC (Auto) >182 Urine RBC (Auto) 5 04/30/19 04/30/19 05/01/19 17:44 17:44 01:45 Creatine Kinase 189 H 166 H CK-MB (CK-2) 2.84 Troponin I 0.126 05/01/19 05/01/19 05/01/19 01:45 07:30 07:30 Creatine Kinase 137 H CK-MB (CK-2) 2.71 2.48 Troponin I 0.102 0.065 Impressions: Chest/Abdomen CTA 04/30/19 21:48 IMPRESSION: No PE. No aneurysm. No dissection. Emphysematous changes and fibrotic changes in the upper lobes and apices. Bibasilar consolidative changes. TECHNICAL DOCUMENTATION: Quality ID # 436: Final reports with documentation of one or more dose reduction techniques (e.g., Automated exposure control, adjustment of the mA and/or kV according to patient size, use of iterative reconstruction technique) copyright 2011 [employer]- All Rights Reserved Hand X-Ray 05/01/19 00:00 IMPRESSION: No acute findings. Chest X-Ray 05/01/19 06:00 IMPRESSION: No significant change. No pneumothorax. Assessment & Plan - Diagnosis (1) Acute respiratory failure Qualifiers: Respiratory failure complication: unspecified whether with hypoxia or hypercapnia Qualified Code(s): J96.00 - Acute respiratory failure, unspecified whether with hypoxia or hypercapnia Is this a current diagnosis for this admission?: Yes (2) Elevated troponin Is this a current diagnosis for this admission?: Yes (4) Sepsis Qualifiers: Sepsis type: sepsis due to unspecified organism Qualified Code(s): A41.9 - Sepsis, unspecified organism Is this a current diagnosis for this admission?: Yes - Notes Notes: Reviewed labs, EKG, imaging test. Patient with known history of COPD with chronic pain and continued nicotine abuse admitted with fever/sepsis and found to have borderline elevated serum troponin level in the setting of acute respiratory failure and sepsis and likely represents a type II IA with demand mismatch ischemia. Reviewed her old EKGs and she has chronic left bundle branch block pattern. Will recommend a transthoracic echocardiogram to evaluate systolic and diastolic function and if LVEF is preserved will recommend conservative medical therapy at this point of time and outpatient ischemia evaluation once sepsis and respiratory failure have resolved. Consider statin therapy for risk factor reduction. She needs reconciliation of her medications as according to the significant other patient is supposed to be on a blood thinner but has not been confirmed yet from her pharmacy. Consider enteric-c oated aspirin if no obvious contraindication. Consider beta-patrica therapy if no obvious contraindication. Will review echocardiogram and follow with you closely. - Time Time Spent: 50 to 70 Minutes
[2019-05-01] MEDS: MEROPENEM 1 GM in NORMAL SALINE 50 ML IV SCH ×3 (11:18→23:57)
--- NOTE | 2019-05-01 11:42 | RADIOLOGY REPORT (SQ) ---
EXAM DESCRIPTION: VENOUS UNILATERAL UPPER COMPLETED DATE/TIME: 05/01/2019 11:33 am REASON FOR STUDY: swelling and pain left upper extremity COMPARISON: None. TECHNIQUE: Dynamic and static briceño scale and color images acquired of the left arm venous system. Se lected spectral images acquired with additional compression and augmentation maneuvers. The contralat eral subclavian vein and internal jugular vein were also imaged. Images stored on PACS. LIMITATIONS: None. FINDINGS: INTERNAL JUGULAR VEIN: Normal phasicity, compression, augmentation. No visualized echogeni c material on briceño scale. No defects on color images. Comparison opposite side normal. SUBCLAVIAN VEIN: Normal compression, augmentation. No visualized echogenic material on briceño scale. No defects on color images. AXILLARY VEIN: Normal compression, augmentation. No visualized echogenic material on briceño scale. No d efects on color images. BRACHIAL VEIN: Normal compression, augmentation. No visualized echogenic material on briceño scale. No d efects on color images. BASILIC VEIN: Normal compression, augmentation. No visualized echogenic material on briceño scale. No de fects on color images. CEPHALIC VEIN: Normal compression, augmentation. No visualized echogenic material on briceño scale. No d efects on color images. OTHER: No other significant finding. CONTRALATERAL SUBCLAVIAN VEIN AND INTERNAL JUGULAR VEIN: Normal phasicity, compression and augmentation. No visualized echogenic material on briceño scale. No de fects on color images. IMPRESSION: NO EVIDENCE DVT OR SVT IN THE LEFT ARM. TECHNICAL DOCUMENTATION: JOB ID: [id number]- All Rights Reserved Reading location - IP/workstation name: [email or web address]
[2019-05-01] MEDS ORDERED: ETOMIDATE INJ/PF 20 MG/10 ML SDV IV ONE (12:08)
[2019-05-01] MEDS ORDERED: ROCURONIUM BROMIDE INJ 50 MG/5 ML VIAL IV ONE (12:14)
[2019-05-01] MEDS: MORPHINE SULFATE 10 MG/ML INJ IV PRN ×2 (13:30→19:54)
[2019-05-01 14:45] LABS: CREATINE KINASE MB 1.94 ng/mL (<4.55); TROPONIN I 0.042 ng/mL
--- NOTE | 2019-05-01 15:50 | EKG REPORT ---
SEVERITY:- ABNORMAL ECG - SINUS RHYTHM IVCD, CONSIDER ATYPICAL LBBB : Confirmed by: Phillip Aguiar MD 01-May-2019 15:49:24
--- NOTE | 2019-05-01 18:25 | XCELERA REPORT ---
[address] [address] Transthoracic Echocardiogram Report Name: LÓPEZ CASTILLO Age: 58 yrs Gender: Female : 1960 Patient Status: Inpatient Patient Location: ICU^601^A Study Date: 05/01/2019 02:25 PM Height: 66 in Weight: 182 lb BSA: 1.9 m2 Reason For Study: ABNORMAL EKG Ordering Physician: KARTIK VILLELA Performed By: Tiffanie Nichols Interpretation Summary Study quality fair with some suboptimal images. Lack of contrast opacification limits evaluation for intracardiac mass/ thrombus. Mild LVH with normal LVEF at 60-65%. The right ventricle is normal in size and function. The transmitral spectral Doppler flow pattern is abnormal for age Focal thickening of AV leaflets with preserved opening. There is no pericardial effusion. IVC dilated with no respiratory collapse- pt on mechanical ventilator. The aortic root is normal size. MMode/2D Measurements & Calculations RVDd: 3.1 cm LVIDd: 5.1 cm FS: 36.2 % Ao root diam: IVSd: 1.1 cm LVIDs: 3.3 cm EDV(Teich): 3.3 cm LVPWd: 1.1 cm 125.0 ml Ao root area: ESV(Teich): 43.1 ml 8.5 cm2 EF(Teich): 65.5 % EDV(MOD-sp4): SV(MOD-sp4): 99.9 ml 64.5 ml ESV(MOD-sp4): 35.3 ml EF(MOD-sp4): 64.6 % Doppler Measurements & Calculations MV E max jaskaran: MV dec slope: Ao V2 max: LV V1 max P.3 cm/sec 170.7 cm/sec 6.7 mmHg MV A max jaskaran: 614.7 cm/sec2 Ao max PG: LV V1 max: 95.4 cm/sec MV dec time: 0.14 sec11.7 mmHg 129.6 cm/sec MV E/A: 0.90 PA V2 max: 142.1 cm/sec PA max P.1 mmHg Left Ventricle There is mild concentric left ventricular hypertrophy. The left ventricular ejection fraction is normal. LV EF is 60-65%. The transmitral spectral Doppler flow pattern is abnormal for age. Septal motion is consistent with conduction abnormality. Right Ventricle The right ventricle is normal in size and function. Mitral Valve There is mild mitral leaflet calcification. Aortic Valve Focal thickening of AV leaflets with preserved opening. The aortic valve is calcified. The aortic valve is not well visualized secondary to technical limitations. There is a peak gradient of 11.66 mm of Hg. Tricuspid Valve The tricuspid valve is not well visualized secondary to technical limitations. There is a trace or physiologic amount of tricuspid regurgitation. RVSP could not be estimated. Pulmonic Valve The pulmonic valve is not well visualized. Great Vessels The aortic root is normal size. IVC dilated with no respiratory collapse- pt on mechanical ventilator. Effusions There is no pericardial effusion. : KARTIK VILLELA > Kartik Villela
[2019-05-01 20:12] LABS: CREATINE KINASE MB 1.31 ng/mL (<4.55); TROPONIN I 0.033 ng/mL
[2019-05-02] MEDS: MIDAZOLAM HCL 50 MG/100 ML RTUINJ IV PRN ×2 (00:02→07:54)
[2019-05-02] MEDS: MORPHINE SULFATE 10 MG/ML INJ IV PRN ×4 (00:43→21:12)
[2019-05-02] MEDS: RINGERS SOLUTION,LACTATED 1,000 ML IV PRN ×2 (00:46→11:41)
[2019-05-02 01:54] LABS: CREATINE KINASE MB 0.96 ng/mL (<4.55)
[2019-05-02 01:58] LABS: TROPONIN I 0.029 ng/mL
[2019-05-02 04:12] LABS: ABSOLUTE EOSINOPHILS # (AUTO) 0.1 10^3/uL (0.0-0.6); MEAN CORPUSCULAR HGB CONC 33.1 g/dL (32.0-36.0); MONOCYTES % (AUTO) 6.6 % (3-13); TOTAL CELLS COUNTED % (AUTO) 100 %
[2019-05-02 04:16] LABS: ABSOLUTE LYMPHOCYTES (AUTO) 1.4 10^3/uL (0.5-4.7); ABSOLUTE MONOCYTES (AUTO) 0.4 10^3/uL (0.1-1.4); ABSOLUTE NEUT (AUTO) 4.5 10^3/uL (1.7-8.2); BASOPHILS % (AUTO) 0.6 % (0-2); EOSINOPHILS % (AUTO) 2.1 % (0-6); HEMATOCRIT 32.1 % (36.0-47.0); HEMOGLOBIN 10.6 g/dL (12.0-15.5); MEAN CORPUSCULAR HEMOGLOBIN 29.4 pg (27.0-33.4); MEAN CORPUSCULAR VOLUME 89 fl (80-97); PLATELET COUNT 289 10^3/uL (150-450); RED BLOOD COUNT 3.62 10^6/uL (3.72-5.28); RED CELL DISTRIBUTION WIDTH 14.4 % (11.5-14.0); SEGMENTED NEUTROPHILS % (AUTO) 69.7 % (42-78); WHITE BLOOD COUNT 6.4 10^3/uL (4.0-10.5)
[2019-05-02 04:37] LABS: ALANINE AMINOTRANSFERASE 21 U/L (9-52); ALBUMIN 2.4 g/dL (3.5-5.0); ALKALINE PHOSPHATASE 63 U/L (38-126); ANION GAP 8 (5-19); ASPARTATE AMINO TRANSFERASE 12 U/L (14-36); BILIRUBIN,DIRECT 0.3 mg/dL (0.0-0.4); BILIRUBIN,TOTAL 0.4 mg/dL (0.2-1.3); BLOOD UREA NITROGEN 14 mg/dL (7-20); CALCIUM 8.5 mg/dL (8.4-10.2); CARBON DIOXIDE 23 mmol/L (22-30); CHLORIDE 107 mmol/L (98-107); GLUCOSE 73 mg/dL (75-110); POTASSIUM 4.6 mmol/L (3.6-5.0); SODIUM 138.1 mmol/L (137-145)
[2019-05-02 04:49] LABS: ARTERIAL BLOOD H2CO3 1.06 mmol/L (1.05-1.35); ARTERIAL BLOOD HCO3 21.9 mmol/L (20-24); ARTERIAL BLOOD O2 SATURATION 91.6 % (94-98); ARTERIAL BLOOD PCO2 35.2 mmHg (35-45); ARTERIAL BLOOD PH 7.41 (7.35-7.45); ARTERIAL BLOOD PO2 60.2 mmHg (80-100)
[2019-05-02 04:50] LABS: ARTERIAL BLOOD FIO2 25%
[2019-05-02] MEDS: MEROPENEM 1 GM in NORMAL SALINE 50 ML IV SCH ×4 (05:08→23:15)
[2019-05-02] MEDS: HEPARIN SOD (PORCINE) 5,000 UNIT/ML 1 ML SYRINGE SUBCUT SCH ×3 (05:08→21:14)
--- NOTE | 2019-05-02 08:33 | PDOC PROGRESS REPORT ---
Subjective Progress Note for:: 05/02/19 Subjective:: 58 year old female who presented to the emergency room via EMS for altered mental status. Upon arising this morning, she was noted by her significant other to be cognitively confused and intermittently agitated and also intermittently hypersomnolent. EMS was called and by her concerned significant other. She was subsequently found to be lethargic and poorly responsive, have a fever of 103.3 F, with a tachycardia in the 120s and a systolic blood pressure in the 80s upon EMS arrival. EMS administered intravenous fluids and brought the patient to the hospital where in the emergency room she was found to have a systolic blood pressure in the 90s, sinus tachycardia in the 110-120 range, and an elevated temperature of 101F. Patient was noted to have swelling in her left upper extremity, an elevated WBC and a urine demonstrating significant pyuria with a positive nitrite. The diagnosis of urosepsis was made and patient was started initially on Rocephin IV by the ER physician. During her ER course she had a sudden change from her initial confusion with delirium when she suddenly became very agitated, tachycardic, combative and hypoxic resulting in her endotracheal intubation and placement on a mechanical ventilator. At the time of my evaluation patient was intubated and unable to provide input into her care. She was subsequently admitted to the ICU for further evaluation and treatment. 05/01/[id number]-pkwh-old female came to the emergency room altered mental status. In the emergency room she was confused and agitated intermittently hypers omnolent. She also had fever of 103.3 in the ER and became hypotensive requiring pressors later on she was intubated. No acute events in the ICU. Temperature this morning is 97.5 blood pressure is 94/64. Presently on normal saline at 250 cc/h plan is to decrease the normal saline 200 cc/h. Troponins are trending down and EKG shows ST depression and that we may request for cardiology consult today. Will continue to do look for the serial troponins. 05/02/[id number]-lnug-old female admitted for altered mental status she was confused and agitated in the emergency room status post intubation. Patient is doing extremely well today. Plan to extubate her today. T-max is 99.3 today. ABG done this morning shows pH of 7.41 PCO2 35 PO2 60 bicarb is 23 and 25% oxygen. Acute events in the last 24 hours. Reason For Visit: SEPSIS SECONDARY TO URINARY TRACT INFECTION Physical Exam Vital Signs: Temp Pulse Resp BP Pulse Ox 99.3 F 86 20 129/67 H 96 05/02/19 05:32 05/02/19 08:17 05/02/19 08:17 05/02/19 05:40 05/02/19 08:17 Intake & Output 05/01/19 05/02/19 05/03/19 06:59 06:59 06:59 Intake Total 2200 1550 Output Total 745 1550 Balance 1455 0 Weight 82.6 kg 83.6 kg General appearance: PRESENT: no acute distress, other - Patient is on minimal dose of Versed and still under mechanical ventilation. Head exam: PRESENT: atraumatic, normocephalic Eye exam: PRESENT: PERRLA Mouth exam: PRESENT: moist, tongue midline Teeth exam: PRESENT: poor dentation Neck exam: ABSENT: carotid bruit, JVD, lymphadenopathy, thyromegaly Respiratory exam: PRESENT: decreased breath sounds Cardiovascular exam: PRESENT: RRR, systolic murmur. ABSENT: diastolic murmur, rubs GI/Abdominal exam: PRESENT: normal bowel sounds, soft. ABSENT: distended, gu arding, mass, organolmegaly, rebound, tenderness Rectal exam: PRESENT: deferred Extremities exam: PRESENT: full ROM. ABSENT: calf tenderness, clubbing, pedal edema Neurological exam: PRESENT: alert, awake, oriented to person, oriented to place, oriented to time, oriented to situation, CN II-XII grossly intact. ABSENT: mot or sensory deficit Psychiatric exam: PRESENT: appropriate affect, normal mood. ABSENT: homicidal ideation, suicidal ideation Results Laboratory Results: 05/02/19 04:01 05/02/19 04:01 05/02/19 05/02/19 05/02/19 04:01 04:01 04:40 WBC 6.4 RBC 3.62 L Hgb 10.6 L Hct 32.1 L MCV 89 MCH 29.4 MCHC 33.1 RDW 14.4 H Plt Count 289 Seg Neutrophils % 69.7 Lymphocytes % 21.0 Monocytes % 6.6 Eosinophils % 2.1 Basophils % 0.6 Absolute Neutrophils 4.5 Absolute Lymphocytes 1.4 Absolute Monocytes 0.4 Absolute Eosinophils 0.1 Absolute Basophils 0.0 Carbonic Acid 1.06 HCO3/H2CO3 Ratio 20:1 ABG pH 7.41 ABG pCO2 35.2 ABG pO2 60.2 L ABG HCO3 21.9 ABG O2 Saturation 91.6 L ABG Base Excess -2.0 FiO2 25% Sodium 138.1 Potassium 4.6 Chloride 107 Carbon Dioxide 23 Anion Gap 8 BUN 14 Creatinine 0.63 Est GFR ( Amer) > 60 Est GFR (Non-Af Amer) > 60 Glucose 73 L Calcium 8.5 Magnesium 1.8 Total Bilirubin 0.4 AST 12 L ALT 21 Alkaline Phosphatase 63 Total Protein 5.0 L Albumin 2.4 L 04/30/19 04/30/19 05/01/19 17:44 17:44 01:45 Creatine Kinase 189 H 166 H CK-MB (CK-2) 2.84 Troponin I 0.126 05/01/19 05/01/19 05/01/19 01:45 07:30 07:30 Creatine Kinase 137 H CK-MB (CK-2) 2.71 2.48 Troponin I 0.102 0.065 05/01/19 05/01/19 05/01/19 13:40 13:40 19:23 Creatine Kinase 85 69 CK-MB (CK-2) 1.94 Troponin I 0.042 05/01/19 05/02/19 05/02/19 19:23 01:16 01:16 Creatine Kinase 53 CK-MB (CK-2) 1.31 0.96 Troponin I 0.033 0.029 Impressions: Chest/Abdomen CTA 04/30/19 21:48 IMPRESSION: No PE. No aneurysm. No dissection. Emphysematous changes and fibrotic changes in the upper lobes and apices. Bibasilar consolidative changes. TECHNICAL DOCUMENTATION: Quality ID # 436: Final reports with documentation of one or more dose reduction techniques (e.g., Automated exposure control, adjustment of the mA and/or kV according to patient size, use of iterative reconstruction technique) copyright 2011 [employer]- All Rights Reserved Hand X-Ray 05/01/19 00:00 IMPRESSION: No acute findings. Venous Doppler Study 05/01/19 00:00 IMPRESSION: NO EVIDENCE DVT OR SVT IN THE LEFT ARM. Assessment and Plan - Diagnosis (1) Acute respiratory failure with hypoxia Is this a current diagnosis for this admission?: Yes Plan: Patient be treated with mechanical ventilation via endotracheal intubation in the intensive care unit. Dr. Melendez will be consulted for pulmonology input. Arterial blood gases be monitored on a daily basis. 05/01/2019-acute respiratory failure with hypoxia most likely secondary to consolidative changes seen in the CT scan. Patient might have community-acquired pneumonia. May be gram-positive organisms responsible. Today ABG pH is 7.4/PCO2 37.6 PO2 86 and bicarb is 23.8 this is on 30% oxygen. We could to keep her ventilator today probably extubate her tomorrow. Currently on IV meropenem and cultures are pending. plan To do the daily chest x-rays and ABGs. 05/02/[id number]-tkza-old female admitted with acute respiratory failure with hypoxia status post intubation. She is doing well on the ventilator. She is on minimal dose of Versed and the plan is to extubate her today. Weaning protocol is going to be implemented. BG done this morning on 25% oxygen pH is 7.41 PCO2 35 PO2 60 bicarb is 23. Blood cultures are positive for gram-positive cocci in clusters and urine is positive for E. coli. Presently on IV meropenem. (2) Acute encephalopathy Is this a current diagnosis for this admission?: Yes Plan: The patient's acute encephalopathy will be reassessed when she has been ex tubated and is no longer being sedated. 05/01/2019-patient was admitted with altered mental status/acute encephalopathy. Altered mental status most likely secondary to sepsis and acute respiratory f ailure. Plan is to reevaluate the patient after the extubation. Plan to arrange for the CT head without contrast today. 05/02/2019-altered mental status/acute encephalopathy most likely secondary to sepsis and acute respiratory failure. She is doing well on the ventilator plan is to extubate her today. Patient is responding to the touch. Urine drug screen is positive for opiates. (3) Urinary tract infection Qualifiers: Urinary tract infection type: site unspecified Hematuria presence: without hematuria Qualified Code(s): N39.0 - Urinary tract infection, site not specified Is this a current diagnosis for this admission?: Yes Plan: Patient was treated with IV meropenem 1 g administered every 6 hours, as her urinary tract infection is presenting as an acute urosepsis. Her disease process will be monitored with daily CBCs, magnesium levels and metabolic profiles. Serial lactic acid levels be performed. 05/01/2019-patient came in with urinary tract infection probably causing urosepsis. Presently on IV meropenem every 6 hours. Urine cultures blood cultures are pending today's labs are pending also. Latest lactic acid level is 0.7. 05/02/2019-urine culture is positive for E. coli. Presently on meropenem and E. coli sensitive to meropenem. (4) Sepsis Qualifiers: Sepsis type: sepsis due to unspecified organism Qualified Code(s): A41.9 - Sepsis, unspecified organism Is this a current diagnosis for this admission?: Yes Plan: Patient is admitted to the ICU for respiratory failure which was probably precipitated by her urosepsis. Additionally she has been marginally hypotensive and significantly tachycardic due to her sepsis. She has also been noted to have acute encephalopathic changes again most probably as a result of her urosepsis. The course of her sepsis will be monitored with serial CBCs and lactic acid levels. She will be treated with sepsis doses of meropenem (1 g IV every 6 hours) as single drug therapy for her acute urosepsis. She is being monitored in the intensive care unit due to her endotracheal intubation and mechanical ventilation necessitated by acute respiratory failure which was secondary, at least in part, to her acute encephalopathy. 05/01/2019-patient came into sepsis altered mental status, UTI, acute respiratory failure with fever of more than 101, tachycardic and hypotensive. Presently intubated and on IV meropenem. 05/02/2019-sepsis is resolving. Most likely secondary to UTI. Blood cultures are also positive for gram-positive cocci in clusters presently on IV meropenem plan is to continue the present management. (5) Diet-controlled type 2 diabetes mellitus Is this a current diagnosis for this admission?: Yes (6) Hyponatremia Is this a current diagnosis for this admission?: Yes Plan: 05/01/2019-patient's latest serum sodium is 134. Hyponatremia may be secondary to poor oral intake/sepsis. She is presently on Ringer lactate to 250 cc/h plan is to decrease the IV fluids to 100 cc/h from this morning. 05/02/2019-latest serum sodium is 138 hyponatremia is resolved. presently [id number] normal saline at 100 cc/h. (7) Hyperkalemia Is this a current diagnosis for this admission?: Yes Plan: 05/01/2019-serum potassium is 5.2. Presently on Ringer lactate. Plan to switch the fluids to normal saline from this morning. Recheck the potassium levels tomorrow. Hyperkalemia may be secondary to NARDA. 05/02/2019-today's serum potassium is 4.6 hyperkalemia is resolved. (8) Elevated troponin Is this a current diagnosis for this admission?: Yes Plan: 05/01/2019-patient came with elevated troponins and nonspecific ST depression on the EKG these findings may be secondary to demand supply mismatch due to acute respiratory failure with possible underlying pneumonia. Cardiology consult was requested be going to continue to do the serial CPKs and Troponins. 05/02/2019-troponins are trending down cardiology consult was done echocardiogram was done which was negative for heart failure I think patient has demand supply type II myocardial ischemia. (9) Pneumonia Is this a current diagnosis for this admission?: Yes Plan: 05/01/2019-CT scan done in the emergency room suggestive of consolidation changes in the lung bases. Most likely secondary to community-acquired pneumonia. Presently on IV meropenem. Most likely gram-positive organism responsible. Cultures are pending so far. 05/02/2019-blood cultures came back positive for gram-positive cocci in clusters and a CT scan done in the emergency room suggestive of consolidation to changes at the bases presently on IV meropenem T-max is 99.3 plan is to continue the present management. (10) NARDA (acute kidney injury) Is this a current diagnosis for this admission?: Yes Plan: 05/02/2019-serum creatinine is 1.55 yesterday improved to 0.63. AK most likely secondary to prerenal causes resolved. Baseline creatinine is around 0.6. - Time Time Spent with patient: 35 or more minutes Medications reviewed and adjusted accordingly: Yes Anticipated discharge: Home
--- NOTE | 2019-05-02 08:40 | RADIOLOGY REPORT (SQ) ---
EXAM DESCRIPTION: CHEST SINGLE VIEW COMPLETED DATE/TIME: 05/02/2019 6:24 am REASON FOR STUDY: resp failure COMPARISON: 05/01/2019 EXAM PARAMETERS: NUMBER OF VIEWS: One view. TECHNIQUE: Single frontal radiographic view of the chest acquired. RADIATION DOSE: NA LIMITATIONS: None. FINDINGS: Stable AP examination with mild, diffuse bilateral interstitial pulmonary opacity and prob able small left pleural effusion. No new airspace opacity. Cardiomegaly. Unchanged support apparat us including endotracheal tube. IMPRESSION: Stable AP examination with mild, diffuse bilateral interstitial pulmonary opacity and pr obable small left pleural effusion. No new airspace opacity. Cardiomegaly. Unchanged support appara tus including endotracheal tube. TECHNICAL DOCUMENTATION: JOB ID: [id number] [employer]- All Rights Reserved Reading location - IP/workstation name: [email or web address]
[2019-05-02] MEDS ORDERED: LORAZEPAM INJ 2 MG/1 ML VIAL ONE (09:42)
--- NOTE | 2019-05-02 09:46 | PDOC PROGRESS REPORT ---
Subjective Progress Note for:: 05/02/19 Reason For Visit: SEPSIS SECONDARY TO URINARY TRACT INFECTION Patient seen at bedside and still on ventilator support. Patient's significant other seen at bedside. Physical Exam Vital Signs: Temp Pulse Resp BP Pulse Ox 99.3 F 86 20 129/67 H 94 05/02/19 05:32 05/02/19 08:17 05/02/19 08:17 05/02/19 05:40 05/02/19 08:24 Intake & Output 05/01/19 05/02/19 05/03/19 06:59 06:59 06:59 Intake Total 2200 1550 Output Total 745 1550 Balance 1455 0 Weight 82.6 kg 83.6 kg General appearance: PRESENT: no acute distress Head exam: PRESENT: other - ET tube in situ Respiratory exam: PRESENT: crackles, decreased breath sounds Cardiovascular exam: PRESENT: +S1, +S2 Pulses: PRESENT: normal radial pulses, normal dorsalis pedis pul GI/Abdominal exam: PRESENT: normal bowel sounds, soft Neurological exam: PRESENT: other - Patient under sedation. Noted to move all extremities. Results Laboratory Results: 05/02/19 04:01 05/02/19 04:01 05/02/19 05/02/19 05/02/19 04:01 04:01 04:40 WBC 6.4 RBC 3.62 L Hgb 10.6 L Hct 32.1 L MCV 89 MCH 29.4 MCHC 33.1 RDW 14.4 H Plt Count 289 Seg Neutrophils % 69.7 Lymphocytes % 21.0 Monocytes % 6.6 Eosinophils % 2.1 Basophils % 0.6 Absolute Neutrophils 4.5 Absolute Lymphocytes 1.4 Absolute Monocytes 0.4 Absolute Eosinophils 0.1 Absolute Basophils 0.0 Carbonic Acid 1.06 HCO3/H2CO3 Ratio 20:1 ABG pH 7.41 ABG pCO2 35.2 ABG pO2 60.2 L ABG HCO3 21.9 ABG O2 Saturation 91.6 L ABG Base Excess -2.0 FiO2 25% Sodium 138.1 Potassium 4.6 Chloride 107 Carbon Dioxide 23 Anion Gap 8 BUN 14 Creatinine 0.63 Est GFR ( Amer) > 60 Est GFR (Non-Af Amer) > 60 Glucose 73 L Calcium 8.5 Magnesium 1.8 Total Bilirubin 0.4 AST 12 L ALT 21 Alkaline Phosphatase 63 Total Protein 5.0 L Albumin 2.4 L 04/30/19 19:26 Clean Catch Midstream Urine Culture - Final Escherichia Coli 04/30/19 04/30/19 05/01/19 17:44 17:44 01:45 Creatine Kinase 189 H 166 H CK-MB (CK-2) 2.84 Troponin I 0.126 05/01/19 05/01/19 05/01/19 01:45 07:30 07:30 Creatine Kinase 137 H CK-MB (CK-2) 2.71 2.48 Troponin I 0.102 0.065 05/01/19 05/01/19 05/01/19 13:40 13:40 19:23 Creatine Kinase 85 69 CK-MB (CK-2) 1.94 Troponin I 0.042 05/01/19 05/02/19 05/02/19 19:23 01:16 01:16 Creatine Kinase 53 CK-MB (CK-2) 1.31 0.96 Troponin I 0.033 0.029 Impressions: Chest/Abdomen CTA 04/30/19 21:48 IMPRESSION: No PE. No aneurysm. No dissection. Emphysematous changes and fibrotic changes in the upper lobes and apices. Bibasilar consolidative changes. TECHNICAL DOCUMENTATION: Quality ID # 436: Final reports with documentation of one or more dose reduction techniques (e.g., Automated exposure control, adjustment of the mA and/or kV according to patient size, use of iterative reconstruction technique) copyright 2011 [employer]- All Rights Reserved Hand X-Ray 05/01/19 00:00 IMPRESSION: No acute findings. Venous Doppler Study 05/01/19 00:00 IMPRESSION: NO EVIDENCE DVT OR SVT IN THE LEFT ARM. Chest X-Ray 05/02/19 08:00 IMPRESSION: Stable AP examination with mild, diffuse bilateral interstitial pulmonary opacity and probable small left pleural effusion. No new airspace opacity. Cardiomegaly. Unchanged support apparatus including endotracheal tube. Assessment & Plan - Diagnosis (1) Acute respiratory failure Qualifiers: Respiratory failure complication: unspecified whether with hypoxia or hypercapnia Qualified Code(s): J96.00 - Acute respiratory failure, unspecified whether with hypoxia or hypercapnia Is this a current diagnosis for this admission?: Yes (2) Elevated troponin Is this a current diagnosis for this admission?: Yes (4) Sepsis Qualifiers: Sepsis type: sepsis due to unspecified organism Qualified Code(s): A41.9 - Sepsis, unspecified organism Is this a current diagnosis for this admission?: Yes - Notes Notes: Reviewed labs, imaging test and cultures. Patient growing gram-positive cocci in clusters in the blood culture and E. coli in the urine culture. Clinical picture compatible with sepsis. Echocardiogram shows preserved LV ejection fraction. At this point of time no indication for cardiac work-up for obstructive coronary artery disease. Will recommend outpatient follow-up with cardiology and ischemia evaluation as an outpatient. Will sign off at this time and please call if you have any questions. Continue with treatment for sepsis respiratory failure per primary team. - Time Time with patient: 15-25 minutes
[2019-05-02] MEDS: FAMOTIDINE INJ/PF 20 MG/2 ML SDV IV SCH ×2 (10:31→21:14)
[2019-05-02 20:15] LABS: ARTERIAL BLOOD BASE EXCESS -2.1 mmol/L; ARTERIAL BLOOD FIO2 4L; ARTERIAL BLOOD H2CO3 0.92 mmol/L (1.05-1.35); ARTERIAL BLOOD HCO3 21.1 mmol/L (20-24); ARTERIAL BLOOD O2 SATURATION 93.5 % (94-98); ARTERIAL BLOOD PCO2 30.6 mmHg (35-45); ARTERIAL BLOOD PH 7.46 (7.35-7.45); ARTERIAL BLOOD PO2 63.1 mmHg (80-100)
[2019-05-03] MEDS: MORPHINE SULFATE 10 MG/ML INJ IV PRN ×4 (01:56→17:11)
[2019-05-03 04:14] LABS: ABSOLUTE BASOPHILS # (AUTO) 0.1 10^3/uL (0.0-0.2); ABSOLUTE EOSINOPHILS # (AUTO) 0.1 10^3/uL (0.0-0.6); ABSOLUTE LYMPHOCYTES (AUTO) 1.6 10^3/uL (0.5-4.7); ABSOLUTE MONOCYTES (AUTO) 0.7 10^3/uL (0.1-1.4); ABSOLUTE NEUT (AUTO) 5.4 10^3/uL (1.7-8.2); BASOPHILS % (AUTO) 0.8 % (0-2); EOSINOPHILS % (AUTO) 1.4 % (0-6); HEMATOCRIT 32.2 % (36.0-47.0); HEMOGLOBIN 10.6 g/dL (12.0-15.5); LYMPHOCYTES % (AUTO) 20.3 % (13-45); MEAN CORPUSCULAR HEMOGLOBIN 29.1 pg (27.0-33.4); MEAN CORPUSCULAR VOLUME 88 fl (80-97); MONOCYTES % (AUTO) 8.9 % (3-13); PLATELET COUNT 338 10^3/uL (150-450); RED BLOOD COUNT 3.66 10^6/uL (3.72-5.28); SEGMENTED NEUTROPHILS % (AUTO) 68.6 % (42-78); TOTAL CELLS COUNTED % (AUTO) 100 %; WHITE BLOOD COUNT 7.9 10^3/uL (4.0-10.5)
[2019-05-03 04:28] LABS: ALANINE AMINOTRANSFERASE 14 U/L (9-52); ALBUMIN 2.8 g/dL (3.5-5.0); ALKALINE PHOSPHATASE 66 U/L (38-126); ANION GAP 11 (5-19); ASPARTATE AMINO TRANSFERASE 17 U/L (14-36); BILIRUBIN,DIRECT 0.3 mg/dL (0.0-0.4); BILIRUBIN,TOTAL 0.3 mg/dL (0.2-1.3); BLOOD UREA NITROGEN 13 mg/dL (7-20); CALCIUM 8.6 mg/dL (8.4-10.2); CARBON DIOXIDE 22 mmol/L (22-30); CHLORIDE 106 mmol/L (98-107); GLUCOSE 75 mg/dL (75-110); POTASSIUM 4.3 mmol/L (3.6-5.0); SODIUM 138.9 mmol/L (137-145); TOTAL PROTEIN 6.1 g/dL (6.3-8.2)
[2019-05-03] MEDS: MEROPENEM 1 GM in NORMAL SALINE 50 ML IV SCH ×3 (05:46→17:08)
[2019-05-03] MEDS: HEPARIN SOD (PORCINE) 5,000 UNIT/ML 1 ML SYRINGE SUBCUT SCH ×3 (05:47→21:33)
[2019-05-03] MEDS: RINGERS SOLUTION,LACTATED 1,000 ML IV PRN (06:39)
[2019-05-03 06:42] LABS: ARTERIAL BLOOD BASE EXCESS -0.5 mmol/L; ARTERIAL BLOOD H2CO3 0.99 mmol/L (1.05-1.35); ARTERIAL BLOOD HCO3 22.5 mmol/L (20-24); ARTERIAL BLOOD O2 SATURATION 95.4 % (94-98); ARTERIAL BLOOD PCO2 32.8 mmHg (35-45); ARTERIAL BLOOD PH 7.46 (7.35-7.45); ARTERIAL BLOOD PO2 72.2 mmHg (80-100); ARTERIAL BLOOD TOTAL CO2 23.5 mmol/L (21-25)
[2019-05-03 06:43] LABS: ARTERIAL BLOOD FIO2 ROOM AIR
--- NOTE | 2019-05-03 08:24 | PDOC PROGRESS REPORT ---
Subjective Progress Note for:: 05/03/19 Subjective:: 58 year old female who presented to the emergency room via EMS for altered mental status. Upon arising this morning, she was noted by her significant other to be cognitively confused and intermittently agitated and also intermittently hypersomnolent. EMS was called and by her concerned significant other. She was subsequently found to be lethargic and poorly responsive, have a fever of 103.3 F, with a tachycardia in the 120s and a systolic blood pressure in the 80s upon EMS arrival. EMS administered intravenous fluids and brought the patient to the hospital where in the emergency room she was found to have a systolic blood pressure in the 90s, sinus tachycardia in the 110-120 range, and an elevated temperature of 101F. Patient was noted to have swelling in her left upper extremity, an elevated WBC and a urine demonstrating significant pyuria with a positive nitrite. The diagnosis of urosepsis was made and patient was started initially on Rocephin IV by the ER physician. During her ER course she had a sudden change from her initial confusion with delirium when she suddenly became very agitated, tachycardic, combative and hypoxic resulting in her endotracheal intubation and placement on a mechanical ventilator. At the time of my evaluation patient was intubated and unable to provide input into her care. She was subsequently admitted to the ICU for further evaluation and treatment. 05/01/[id number]-ldln-old female came to the emergency room altered mental status. In the emergency room she was confused and agitated intermittently hypers omnolent. She also had fever of 103.3 in the ER and became hypotensive requiring pressors later on she was intubated. No acute events in the ICU. Temperature this morning is 97.5 blood pressure is 94/64. Presently on normal saline at 250 cc/h plan is to decrease the normal saline 200 cc/h. Troponins are trending down and EKG shows ST depression and that we may request for cardiology consult today. Will continue to do look for the serial troponins. 05/02/[id number]-tdxd-old female admitted for altered mental status she was confused and agitated in the emergency room status post intubation. Patient is doing extremely well today. Plan to extubate her today. T-max is 99.3 today. ABG done this morning shows pH of 7.41 PCO2 35 PO2 60 bicarb is 23 and 25% oxygen. Acute events in the last 24 hours. 05/03/2019-patient was successfully extubated yesterday pulse ox is 96% on 2 L. Patient is able to give her name and date of and she told me she is in the hospital does not know which hospital unable to give her home address. She told me she had a right breast post mastectomy. Complaining of pain and that she is receiving IV fentanyl as needed. Plan to do the CT head without contrast today. T-max is 98.8 today. No acute events in the last 24 hours. Ultrasound of the left was done negative for DVT and SVT. Reason For Visit: SEPSIS SECONDARY TO URINARY TRACT INFECTION Physical Exam Vital Signs: Temp Pulse Resp BP Pulse Ox 99.5 F 94 20 155/78 H 94 05/03/19 08:00 05/03/19 08:09 05/03/19 08:09 05/03/19 08:00 05/03/19 08:09 Intake & Output 05/02/19 05/03/19 05/04/19 06:59 06:59 06:59 Intake Total 1550 1216 Output Total 1550 1370 Balance 0 -154 Weight 83.6 kg 83.9 kg General appearance: PRESENT: mild distress, other - Confused and agitated Head exam: PRESENT: atraumatic Eye exam: PRESENT: PERRLA Ear exam: PRESENT: normal external ear exam Mouth exam: PRESENT: dry mucosa Teeth exam: PRESENT: poor dentation Neck exam: ABSENT: carotid bruit, JVD, lymphadenopathy, thyromegaly Respiratory exam: PRESENT: decreased breath sounds Cardiovascular exam: PRESENT: tachycardia GI/Abdominal exam: PRESENT: normal bowel sounds, soft. ABSENT: distended, guarding, mass, organolmegaly, rebound, tenderness Rectal exam: PRESENT: deferred Gentrourinary exam: PRESENT: indwelling catheter Extremities exam: PRESENT: other - Left arm was swollen complaining of pain of the right wrist x-rays are negative for obvious fractures and ultrasound was negative for DVT. Neurological exam: PRESENT: altered, CN II-XII grossly intact Psychiatric exam: PRESENT: agitated, anxious Results Laboratory Results: 05/03/19 04:00 05/03/19 04:00 05/02/19 05/03/19 05/03/19 19:50 04:00 04:00 WBC 7.9 RBC 3.66 L Hgb 10.6 L Hct 32.2 L MCV 88 MCH 29.1 MCHC 33.0 RDW 14.0 Plt Count 338 Seg Neutrophils % 68.6 Lymphocytes % 20.3 Monocytes % 8.9 Eosinophils % 1.4 Basophils % 0.8 Absolute Neutrophils 5.4 Absolute Lymphocytes 1.6 Absolute Monocytes 0.7 Absolute Eosinophils 0.1 Absolute Basophils 0.1 Carbonic Acid 0.92 L HCO3/H2CO3 Ratio 22:1 ABG pH 7.46 H ABG pCO2 30.6 L ABG pO2 63.1 L ABG HCO3 21.1 ABG O2 Saturation 93.5 L ABG Base Excess -2.1 FiO2 4L Sodium 138.9 Potassium 4.3 Chloride 106 Carbon Dioxide 22 Anion Gap 11 BUN 13 Creatinine 0.68 Est GFR ( Amer) > 60 Est GFR (Non-Af Amer) > 60 Glucose 75 Calcium 8.6 Magnesium 1.7 Total Bilirubin 0.3 AST 17 ALT 14 Alkaline Phosphatase 66 Total Protein 6.1 L Albumin 2.8 L 05/03/19 05:37 WBC RBC Hgb Hct MCV MCH MCHC RDW Plt Count Seg Neutrophils % Lymphocytes % Monocytes % Eosinophils % Basophils % Absolute Neutrophils Absolute Lymphocytes Absolute Monocytes Absolute Eosinophils Absolute Basophils Carbonic Acid 0.99 L HCO3/H2CO3 Ratio 22:1 ABG pH 7.46 H ABG pCO2 32.8 L ABG pO2 72.2 L ABG HCO3 22.5 ABG O2 Saturation 95.4 ABG Base Excess -0.5 FiO2 ROOM AIR Sodium Potassium Chloride Carbon Dioxide Anion Gap BUN Creatinine Est GFR ( Amer) Est GFR (Non-Af Amer) Glucose Calcium Magnesium Total Bilirubin AST ALT Alkaline Phosphatase Total Protein Albumin 04/30/19 19:26 Clean Catch Midstream Urine Culture - Final Escherichia Coli 04/30/19 04/30/19 05/01/19 17:44 17:44 01:45 Creatine Kinase 189 H 166 H CK-MB (CK-2) 2.84 Troponin I 0.126 05/01/19 05/01/19 05/01/19 01:45 07:30 07:30 Creatine Kinase 137 H CK-MB (CK-2) 2.71 2.48 Troponin I 0.102 0.065 05/01/19 05/01/19 05/01/19 13:40 13:40 19:23 Creatine Kinase 85 69 CK-MB (CK-2) 1.94 Troponin I 0.042 05/01/19 05/02/19 05/02/19 19:23 01:16 01:16 Creatine Kinase 53 CK-MB (CK-2) 1.31 0.96 Troponin I 0.033 0.029 Impressions: Chest/Abdomen CTA 04/30/19 21:48 IMPRESSION: No PE. No aneurysm. No dissection. Emphysematous changes and fibrotic changes in the upper lobes and apices. Bibasilar consolidative changes. TECHNICAL DOCUMENTATION: Quality ID # 436: Final reports with documentation of one or more dose reduction techniques (e.g., Automated exposure control, adjustment of the mA and/or kV according to patient size, use of iterative reconstruction technique) copyright 2011 [employer]- All Rights Reserved Hand X-Ray 05/01/19 00:00 IMPRESSION: No acute findings. Venous Doppler Study 05/01/19 00:00 IMPRESSION: NO EVIDENCE DVT OR SVT IN THE LEFT ARM. Chest X-Ray 05/02/19 08:00 IMPRESSION: Stable AP examination with mild, diffuse bilateral interstitial pulmonary opacity and probable small left pleural effusion. No new airspace opacity. Cardiomegaly. Unchanged support apparatus including endotracheal tube. Assessment and Plan - Diagnosis (1) Acute respiratory failure with hypoxia Is this a current diagnosis for this admission?: Yes Plan: Patient be treated with mechanical ventilation via endotracheal intubation in the intensive care unit. Dr. Melendez will be consulted for pulmonology input. Arterial blood gases be monitored on a daily basis. 05/01/2019-acute respiratory failure with hypoxia most likely secondary to consolidative changes seen in the CT scan. Patient might have community- acquired pneumonia. May be gram-positive organisms responsible. Today ABG pH is 7.4/PCO2 37.6 PO2 86 and bicarb is 23.8 this is on 30% oxygen. We could to keep her ventilator today probably extubate her tomorrow. Currently on IV meropenem and cultures are pending. plan To do the daily chest x-rays and ABGs. 05/02/[id number]-hies-old female admitted with acute respiratory failure with hypoxia status post intubation. She is doing well on the ventilator. She is on minimal dose of Versed and the plan is to extubate her today. Weaning protocol is going to be implemented. BG done this morning on 25% oxygen pH is 7.41 PCO2 35 PO2 60 bicarb is 23. Blood cultures are positive for gram-positive cocci in clusters and urine is positive for E. coli. Presently on IV meropenem. 05/03/[id number]-mlgk-old female admitted for acute respiratory failure with hypoxia status post intubation and extubation. Pulse ox is 96% on 2 L. The blood cultures came back positive for gram-positive cocci in clusters urine culture is positive for E. coli. Acute respiratory failure with hypoxia most likely secondary to community-acquired pneumonia. Presently on IV meropenem. plan is to continue the antibiotic and plan to keep the patient in the ICU for at least another day. (2) Acute encephalopathy Is this a current diagnosis for this admission?: Yes Plan: The patient's acute encephalopathy will be reassessed when she has been extubated and is no longer being sedated. 05/01/2019-patient was admitted with altered mental status/acute encephalopathy. Altered mental status most likely secondary to sepsis and acute respiratory failure. Plan is to reevaluate the patient after the extubation. Plan to arrange for the CT head without contrast today. 05/02/2019-altered mental status/acute encephalopathy most likely secondary to sepsis and acute respiratory failure. She is doing well on the ventilator plan is to extubate her today. Patient is responding to the touch. Urine drug screen is positive for opiates. 05/03/2019-altered mental status/acute encephalopathy most likely secondary to sepsis and acute respiratory failure. Patient is pleasantly confused this morning able to give her name date of and she told me she is in the hosp [facility] she is also told me she had a history of right mastectomy. But unable to give her home address. pt is agitated anxious requesting pain medications. (3) Urinary tract infection Qualifiers: Urinary tract infection type: site unspecified Hematuria presence: without hematuria Qualified Code(s): N39.0 - Urinary tract infection, site not specified Is this a current diagnosis for this admission?: Yes Plan: Patient was treated with IV meropenem 1 g administered every 6 hours, as her urinary tract infection is presenting as an acute urosepsis. Her disease process will be monitored with daily CBCs, magnesium levels and metabolic profiles. Serial lactic acid levels be performed. 05/01/2019-patient came in with urinary tract infection probably causing urosepsis. Presently on IV meropenem every 6 hours. Urine cultures blood cultures are pending today's labs are pending also. Latest lactic acid level is 0.7. 05/02/2019-urine culture is positive for E. coli. Presently on meropenem and E. coli sensitive to meropenem. (4) Sepsis Qualifiers: Sepsis type: sepsis due to unspecified organism Qualified Code(s): A41.9 - Sepsis, unspecified organism Is this a current diagnosis for this admission?: Yes Plan: Patient is admitted to the ICU for respiratory failure which was probably precipitated by her urosepsis. Additionally she has been marginally hypotensive and significantly tachycardic due to her sepsis. She has also been noted to have acute encephalopathic changes again most probably as a result of her urosepsis. The course of her sepsis will be monitored with serial CBCs and lactic acid levels. She will be treated with sepsis doses of meropenem (1 g IV every 6 hours) as single drug therapy for her acute urosepsis. She is being monitored in the intensive care unit due to her endotracheal intubation and mechanical ventilation necessitated by acute respiratory failure which was secondary, at least in part, to her acute encephalopathy. 05/01/2019-patient came into sepsis altered mental status, UTI, acute respiratory failure with fever of more than 101, tachycardic and hypotensive. Presently intubated and on IV meropenem. 05/02/2019-sepsis is resolving. Most likely secondary to UTI. Blood cultures are also positive for gram-positive cocci in clusters presently on IV meropenem plan is to continue the present management. 05/03/2019-patient is presently on IV fluids normal saline at 50 cc/h. Blood cultures are positive for gram-positive cocci in clusters and urine culture is p ositive for E. coli and presently on IV meropenem. T-max is 98.8. Blood pressure is 136/92 hypotension is resolved. She still tachycardic with heart rate is around 125. latest WBC count is 7900. (5) Diet-controlled type 2 diabetes mellitus Is this a current diagnosis for this admission?: Yes Plan: Patient will be returned to a diabetic diet once she has been extubated and is awake and alert enough to take oral nutrition. Hemoglobin A1c will be obtained to assess her current diet only therapy. 05/01/2019-patient has history of type 2 diabetes mellitus. Diet controlled. Presently intubated and n.p.o. Plan to follow the hemoglobin A1c and start on insulin sliding scale. Her blood sugars this morning 145. 05/03/2019-patient has history of type 2 diabetes mellitus controlled on diet at home. Latest blood sugar is 117, she failed swallowing study yesterday we are going to try a swallowing evaluation again today if passes will start her on clear liquids and advance the diet as tolerated. (6) Hyponatremia Is this a current diagnosis for this admission?: Yes Plan: 05/01/2019-patient's latest serum sodium is 134. Hyponatremia may be secondary to poor oral intake/sepsis. She is presently on Ringer lactate to 250 cc/h plan is to decrease the IV fluids to 100 cc/h from this morning. 05/02/2019-latest serum sodium is 138 hyponatremia is resolved. presently on normal saline at 100 cc/h. 05/03/2019-serum sodium is 139 today. Hyponatremia is resolved. Receiving normal saline at 50 cc/h. (7) Hyperkalemia Is this a current diagnosis for this admission?: Yes Plan: 05/01/2019-serum potassium is 5.2. Presently on Ringer lactate. Plan to switch the fluids to normal saline from this morning. Recheck the potassium levels tomorrow. Hyperkalemia may be secondary to NARDA. 05/02/2019-today's serum potassium is 4.6 hyperkalemia is resolved. 05/03/2019-patient serum potassium is 4.3 hyperkalemia is resolved. (8) Elevated troponin Is this a current diagnosis for this admission?: Yes (9) Pneumonia Is this a current diagnosis for this admission?: Yes Plan: 05/01/2019-CT scan done in the emergency room suggestive of consolidation changes in the lung bases. Most likely secondary to community-acquired pneumonia. Presently on IV meropenem. Most likely gram-positive organism responsible. Cultures are pending so far. 05/02/2019-blood cultures came back positive for gram-positive cocci in clusters and a CT scan done in the emergency room suggestive of consolidation to changes at the bases presently on IV meropenem T-max is 99.3 plan is to continue the p resent management. 05/03/2019-blood cultures came back positive for gram-positive cocci in clusters and CT scanning of the chest suggestive of consolidated pneumonias. Presently on IV meropenem T-max is 98.8 and WBC count is within normal limits now. (10) NARDA (acute kidney injury) Is this a current diagnosis for this admission?: Yes Plan: 05/02/2019-serum creatinine is 1.55 yesterday improved to 0.63. AK most likely secondary to prerenal causes resolved. Baseline creatinine is around 0.6. 05/03/2019-patient's latest creatinine is 0.68 on admission it is 1.55 acute kidney injury most likely due to prerenal causes resolved. - Time Time Spent with patient: 25-34 minutes Smoking Cessation Education: over 10 minutes Medications reviewed and adjusted accordingly: Yes Anticipated discharge: Home
--- NOTE | 2019-05-03 08:54 | RADIOLOGY REPORT (SQ) ---
EXAM DESCRIPTION: CHEST SINGLE VIEW COMPLETED DATE/TIME: 05/03/2019 8:41 am REASON FOR STUDY: resp failure COMPARISON: 05/02/2019 NUMBER OF VIEWS: One view. TECHNIQUE: Single frontal radiographic view of the chest acquired. LIMITATIONS: None. FINDINGS: LUNGS AND PLEURA: The patient has been extubated. Perihilar markings remain prominent. N o focal consolidation. Small left effusion cannot be excluded. MEDIASTINUM AND HILAR STRUCTURES: No masses. Contour normal. HEART AND VASCULAR STRUCTURES: Heart size is stable. BONES: No acute findings. HARDWARE: None in the chest. OTHER: No other significant finding. IMPRESSION: The patient has been extubated. Mild perihilar fullness remains. No focal consolidatio n. TECHNICAL DOCUMENTATION: JOB ID: [id number]- All Rights Reserved Reading location - IP/workstation name: [email or web address]
[2019-05-03] MEDS: FAMOTIDINE INJ/PF 20 MG/2 ML SDV IV SCH (10:04)
--- NOTE | 2019-05-03 10:10 | RADIOLOGY REPORT (SQ) ---
EXAM DESCRIPTION: CT HEAD WITHOUT COMPLETED DATE/TIME: 05/03/2019 9:40 am REASON FOR STUDY: altered mental status COMPARISON: 07/23/2014 TECHNIQUE: Axial images acquired through the brain without intravenous contrast. Images reviewed wi th bone, brain and subdural windows. Additional sagittal and coronal reconstructions were generated. Images stored on PACS. All CT scanners at this facility use dose modulation, iterative reconstruction, and/or weight based d osing when appropriate to reduce radiation dose to as low as reasonably achievable (ALARA). [facility]: Dose Right [facility]: CareDose [facility]: Dose Right [facility]: Teradose 4D [facility]: FindYogi RADIATION DOSE: CT Rad equipment meets quality standard of care and radiation dose reduction techniq ues were employed. CTDIvol: 48.7 mGy. DLP: 1003 mGy-cm. mGy. LIMITATIONS: None. FINDINGS: VENTRICLES: Normal size and contour. CEREBRUM: No masses. No hemorrhage. No midline shift. No evidence for acute infarction. Normal gra y/white matter differentiation. No areas of low density in the white matter. CEREBELLUM: No masses. No hemorrhage. No alteration of density. No evidence for acute infarction. EXTRAAXIAL SPACES: No fluid collections. No masses. ORBITS AND GLOBE: No intra- or extraconal masses. Normal contour of globe without masses. CALVARIUM: No fracture. PARANASAL SINUSES: No fluid or mucosal thickening. SOFT TISSUES: No mass or hematoma. OTHER: No other significant finding. IMPRESSION: NORMAL BRAIN CT WITHOUT CONTRAST. EVIDENCE OF ACUTE STROKE: NO. COMMENT: Quality ID # 436: Final reports with documentation of one or more dose reduction techniques (e.g., Automated exposure control, adjustment of the mA and/or kV according to patient size, use of iterative reconstruction technique) TECHNICAL DOCUMENTATION: JOB ID: [id number] [employer]- All Rights Reserved Reading location - IP/workstation name: [email or web address]
[2019-05-03] MEDS ORDERED: OXYCODONE HCL IR 5 MG TABLET PO PRN (11:18)
[2019-05-03] MEDS ORDERED: MAGNESIUM CITRATE 296 ML BOTTLE PO ONE (12:00)
[2019-05-03] MEDS: LORAZEPAM INJ 2 MG/1 ML VIAL IV PRN ×2 (12:04→17:11)
[2019-05-03] MEDS: HYDRALAZINE HCL INJ/PF 20 MG/1 ML SDV IV PRN (12:06)
[2019-05-03 12:41] LABS: CREATINE KINASE MB 0.83 ng/mL (<4.55); TROPONIN I 0.012 ng/mL
--- NOTE | 2019-05-03 18:39 | EKG REPORT ---
SEVERITY:- ABNORMAL ECG - SINUS RHYTHM LEFT BUNDLE BRANCH BLOCK : Confirmed by: Phillip Aguiar MD 03-May-2019 18:38:22
[2019-05-03] MEDS: OXYCODONE HCL IR 5 MG TABLET PO SCH (21:34)
[2019-05-03] MEDS: FAMOTIDINE 20 MG TABLET PO SCH (21:34)
[2019-05-04] MEDS: LORAZEPAM INJ 2 MG/1 ML VIAL IV PRN (00:03)
[2019-05-04] MEDS: HYDRALAZINE HCL INJ/PF 20 MG/1 ML SDV IV PRN ×2 (00:03→10:14)
[2019-05-04] MEDS: MEROPENEM 1 GM in NORMAL SALINE 50 ML IV SCH ×4 (00:03→17:00)
[2019-05-04] MEDS: OXYCODONE HCL IR 5 MG TABLET PO SCH ×3 (05:10→21:49)
[2019-05-04] MEDS: HEPARIN SOD (PORCINE) 5,000 UNIT/ML 1 ML SYRINGE SUBCUT SCH (05:11)
--- NOTE | 2019-05-04 08:37 | PDOC PROGRESS REPORT ---
Subjective Progress Note for:: 05/04/19 Subjective:: 58 year old female who presented to the emergency room via EMS for altered mental status. Upon arising this morning, she was noted by her significant other to be cognitively confused and intermittently agitated and also intermittently hypersomnolent. EMS was called and by her concerned significant other. She was subsequently found to be lethargic and poorly responsive, have a fever of 103.3 F, with a tachycardia in the 120s and a systolic blood pressure in the 80s upon EMS arrival. EMS administered intravenous fluids and brought the patient to the hospital where in the emergency room she was found to have a systolic blood pressure in the 90s, sinus tachycardia in the 110-120 range, and an elevated temperature of 101F. Patient was noted to have swelling in her left upper extremity, an elevated WBC and a urine demonstrating significant pyuria with a positive nitrite. The diagnosis of urosepsis was made and patient was started initially on Rocephin IV by the ER physician. During her ER course she had a sudden change from her initial confusion with delirium when she suddenly became very agitated, tachycardic, combative and hypoxic resulting in her endotracheal intubation and placement on a mechanical ventilator. At the time of my evaluation patient was intubated and unable to provide input into her care. She was subsequently admitted to the ICU for further evaluation and treatment. 05/01/[id number]-fjsu-old female came to the emergency room altered mental status. In the emergency room she was confused and agitated intermittently hypers omnolent. She also had fever of 103.3 in the ER and became hypotensive requiring pressors later on she was intubated. No acute events in the ICU. Temperature this morning is 97.5 blood pressure is 94/64. Presently on normal saline at 250 cc/h plan is to decrease the normal saline 200 cc/h. Troponins are trending down and EKG shows ST depression and that we may request for cardiology consult today. Will continue to do look for the serial troponins. 05/02/[id number]-qlik-old female admitted for altered mental status she was confused and agitated in the emergency room status post intubation. Patient is doing extremely well today. Plan to extubate her today. T-max is 99.3 today. ABG done this morning shows pH of 7.41 PCO2 35 PO2 60 bicarb is 23 and 25% oxygen. Acute events in the last 24 hours. 05/03/2019-patient was successfully extubated yesterday pulse ox is 96% on 2 L. Patient is able to give her name and date of and she told me she is in the hospital does not know which hospital unable to give her home address. She told me she had a right breast post mastectomy. Complaining of pain and that she is receiving IV fentanyl as needed. Plan to do the CT head without contrast today. T-max is 98.8 today. No acute events in the last 24 hours. Ultrasound of the left was done negative for DVT and SVT. 05/04/2019-patient is alert oriented communicating well expressing desire to go home. After I explained to the mid current situation and need to stay at least another day in the hospital she agreed to stay. Patient wants to remove the Dimas's catheter. She refused to participate in the physical therapy. Temperature is 99 today blood pressure is 158/69. Pulse ox is 94% on 3 L. Blood cultures are positive for gram-positive cocci and urine culture is positive for E. coli presently on meropenem. Reason For Visit: SEPSIS SECONDARY TO URINARY TRACT INFECTION Physical Exam Vital Signs: Temp Pulse Resp BP Pulse Ox 99.0 F 96 32 H 158/69 H 93 05/03/19 18:00 05/04/19 07:00 05/04/19 06:00 05/04/19 05:42 05/04/19 06:00 Intake & Output 05/03/19 05/04/19 05/05/19 06:59 06:59 06:59 Intake Total 1216 2040 Output Total 1370 2450 Balance -154 -410 Weight 83.9 kg 80.7 kg General appearance: PRESENT: no acute distress Head exam: PRESENT: atraumatic Eye exam: PRESENT: PERRLA Mouth exam: PRESENT: moist, tongue midline Neck exam: ABSENT: carotid bruit, JVD, lymphadenopathy, thyromegaly Respiratory exam: PRESENT: decreased breath sounds Cardiovascular exam: PRESENT: tachycardia GI/Abdominal exam: PRESENT: normal bowel sounds, soft. ABSENT: distended, guarding, mass, organolmegaly, rebound, tenderness Rectal exam: PRESENT: deferred Gentrourinary exam: PRESENT: indwelling catheter Neurological exam: PRESENT: alert, awake, oriented to person, oriented to place, oriented to time, oriented to situation, CN II-XII grossly intact. ABSENT: motor sensory deficit Psychiatric exam: PRESENT: appropriate affect, normal mood. ABSENT: homicidal ideation, suicidal ideation Results Laboratory Results: 05/03/19 04:00 05/03/19 04:00 04/30/19 04/30/19 05/01/19 17:44 17:44 01:45 Creatine Kinase 189 H 166 H CK-MB (CK-2) 2.84 Troponin I 0.126 05/01/19 05/01/19 05/01/19 01:45 07:30 07:30 Creatine Kinase 137 H CK-MB (CK-2) 2.71 2.48 Troponin I 0.102 0.065 05/01/19 05/01/19 05/01/19 13:40 13:40 19:23 Creatine Kinase 85 69 CK-MB (CK-2) 1.94 Troponin I 0.042 05/01/19 05/02/19 05/02/19 19:23 01:16 01:16 Creatine Kinase 53 CK-MB (CK-2) 1.31 0.96 Troponin I 0.033 0.029 05/03/19 05/03/19 11:40 11:40 Creatine Kinase 38 CK-MB (CK-2) 0.83 Troponin I 0.012 Impressions: Chest/Abdomen CTA 04/30/19 21:48 IMPRESSION: No PE. No aneurysm. No dissection. Emphysematous changes and fibrotic changes in the upper lobes and apices. Bibasilar consolidative changes. TECHNICAL DOCUMENTATION: Quality ID # [id number]: Final reports with documentation of one or more dose reduction techniques (e.g., Automated exposure control, adjustment of the mA and/or kV according to patient size, use of iterative reconstruction technique) copyright 2011 [employer]- All Rights Reserved Hand X-Ray 05/01/19 00:00 IMPRESSION: No acute findings. Venous Doppler Study 05/01/19 00:00 IMPRESSION: NO EVIDENCE DVT OR SVT IN THE LEFT ARM. Chest X-Ray 05/03/19 00:00 IMPRESSION: The patient has been extubated. Mild perihilar fullness remains. No focal consolidation. Head CT 05/03/19 00:00 IMPRESSION: NORMAL BRAIN CT WITHOUT CONTRAST. EVIDENCE OF ACUTE STROKE: NO. Assessment and Plan - Diagnosis (1) Acute respiratory failure with hypoxia Is this a current diagnosis for this admission?: Yes Plan: Patient be treated with mechanical ventilation via endotracheal intubation in the intensive care unit. Dr. Melendez will be consulted for pulmonology input. Arterial blood gases be monitored on a daily basis. 05/01/2019-acute respiratory failure with hypoxia most likely secondary to consolidative changes seen in the CT scan. Patient might have community- acquired pneumonia. May be gram-positive organisms responsible. Today ABG pH is 7.4/PCO2 37.6 PO2 86 and bicarb is 23.8 this is on 30% oxygen. We could to keep her ventilator today probably extubate her tomorrow. Currently on IV meropenem and cultures are pending. plan To do the daily chest x-rays and ABGs. 05/02/[id number]-yciu-old female admitted with acute respiratory failure with hypoxia status post intubation. She is doing well on the ventilator. She is on minimal dose of Versed and the plan is to extubate her today. Weaning protocol is going to be implemented. BG done this morning on 25% oxygen pH is 7.41 PCO2 35 PO2 60 bicarb is 23. Blood cultures are positive for gram-positive cocci in clusters and urine is positive for E. coli. Presently on IV meropenem. 05/03/[id number]-gllj-old female admitted for acute respiratory failure with hypoxia status post intubation and extubation. Pulse ox is 96% on 2 L. The blood cultures came back positive for gram-positive cocci in clusters urine culture is positive for E. coli. Acute respiratory failure with hypoxia most likely secondary to community-acquired pneumonia. Presently on IV meropenem. plan is to continue the antibiotic and plan to keep the patient in the ICU for at least another day. 05/04/[id number]-tysy-old female admitted for acute respiratory failure with hypoxia status post intubation and extubation pulse ox on 3 L is a 96%. Comfortable in the bed communicating well. Chest bilateral entry was decreased no wheezing no crepitations. Presently on IV meropenem blood cultures are positive for gram- positive cocci in clusters urine culture is positive for E. coli. T-max is 99.0. I think patient is stable enough to go to [facility]. (2) Acute encephalopathy Is this a current diagnosis for this admission?: Yes Plan: The patient's acute encephalopathy will be reassessed when she has been extubated and is no longer being sedated. 05/01/2019-patient was admitted with altered mental status/acute encephalopathy. Altered mental status most likely secondary to sepsis and acute respiratory failure. Plan is to reevaluate the patient after the extubation. Plan to arrange for the CT head without contrast today. 05/02/2019-altered mental status/acute encephalopathy most likely secondary to sepsis and acute respiratory failure. She is doing well on the ventilator plan is to extubate her today. Patient is responding to the touch. Urine drug screen is positive for opiates. 05/03/2019-altered mental status/acute encephalopathy most likely secondary to sepsis and acute respiratory failure. Patient is pleasantly confused this morning able to give her name date of and she told me she is in the hospital she is also told me she had a history of right mastectomy. But unable to give her home address. pt is agitated anxious requesting pain medications. 05/04/2019-acute encephalopathy most likely secondary to sepsis and acute respiratory failure resolved. CT head was negative for acute pathology. (3) Urinary tract infection Qualifiers: Urinary tract infection type: site unspecified Hematuria presence: without hematuria Qualified Code(s): N39.0 - Urinary tract infection, site not specified Is this a current diagnosis for this admission?: Yes (4) Sepsis Qualifiers: Sepsis type: sepsis due to unspecified organism Qualified Code(s): A41.9 - Sepsis, unspecified organism Is this a current diagnosis for this admission?: Yes Plan: Patient is admitted to the ICU for respiratory failure which was probably precipitated by her urosepsis. Additionally she has been marginally hypotensive and significantly tachycardic due to her sepsis. She has also been noted to have acute encephalopathic changes again most probably as a result of her urosep sis. The course of her sepsis will be monitored with serial CBCs and lactic acid levels. She will be treated with sepsis doses of meropenem (1 g IV every 6 hours) as single drug therapy for her acute urosepsis. She is being monitored in the intensive care unit due to her endotracheal intubation and mechanical ventilation necessitated by acute respiratory failure which was secondary, at least in part, to her acute encephalopathy. 05/01/2019-patient came into sepsis altered mental status, UTI, acute respiratory failure with fever of more than 101, tachycardic and hypotensive. Presently intubated and on IV meropenem. 05/02/2019-sepsis is resolving. Most likely secondary to UTI. Blood cultures are also positive for gram-positive cocci in clusters presently on IV meropenem plan is to continue the present management. 05/03/2019-patient is presently on IV fluids normal saline at 50 cc/h. Blood cultures are positive for gram-positive cocci in clusters and urine culture is positive for E. coli and presently on IV meropenem. T-max is 98.8. Blood pressure is 136/92 hypotension is resolved. She still tachycardic with heart rate is around 125. latest WBC count is 7900. 05/04/2019-hypotension is resolved patient blood pressure today is 158/69. Presently on IV hydralazine 20 mg every 4 hours PRN for systolic blood pressure more than 150. T-max is 99. On IV meropenem. Blood culture positive for gram- positive cocci in clusters urine culture is positive for E. coli. (5) Diet-controlled type 2 diabetes mellitus Is this a current diagnosis for this admission?: Yes Plan: Patient will be returned to a diabetic diet once she has been extubated and is awake and alert enough to take oral nutrition. Hemoglobin A1c will be obtained to assess her current diet only therapy. 05/01/2019-patient has history of type 2 diabetes mellitus. Diet controlled. Presently intubated and n.p.o. Plan to follow the hemoglobin A1c and start on insulin sliding scale. Her blood sugars this morning 145. 05/03/2019-patient has history of type 2 diabetes mellitus controlled on diet at home. Latest blood sugar is 117, she failed swallowing study yesterday we are going to try a swallowing evaluation again today if passes will start her on clear liquids and advance the diet as tolerated. 05/04/2019-patient has history of type 2 diabetes mellitus latest blood sugar is now 3. She passed a swallowing evaluation yesterday. (6) Hyponatremia Is this a current diagnosis for this admission?: Yes Plan: 05/01/2019-patient's latest serum sodium is 134. Hyponatremia may be secondary to poor oral intake/sepsis. She is presently on Ringer lactate to 250 cc/h plan is to decrease the IV fluids to 100 cc/h from this morning. 05/02/2019-latest serum sodium is 138 hyponatremia is resolved. presently on normal saline at 100 cc/h. 05/03/2019-serum sodium is 139 today. Hyponatremia is resolved. Receiving normal saline at 50 cc/h. 05/04/2019-today's labs are pending serum sodium yesterday is 139 hyponatremia due to poor oral intake and sepsis resolved. (7) Hyperkalemia Is this a current diagnosis for this admission?: Yes Plan: 05/01/2019-serum potassium is 5.2. Presently on Ringer lactate. Plan to switch the fluids to normal saline from this morning. Recheck the potassium levels tomorrow. Hyperkalemia may be secondary to NARDA. 05/02/2019-today's serum potassium is 4.6 hyperkalemia is resolved. 05/03/2019-patient serum potassium is 4.3 hyperkalemia is resolved. 2018-2 days labs are pending yesterday serum potassium is 4.3 hyperkalemia resolved. (8) Elevated troponin Is this a current diagnosis for this admission?: Yes Plan: 05/01/2019-patient came with elevated troponins and nonspecific ST depression on the EKG these findings may be secondary to demand supply mismatch due to acute respiratory failure with possible underlying pneumonia. Cardiology consult was requested be going to continue to do the serial CPKs and Troponins. 05/02/2019-troponins are trending down cardiology consult was done echocardiogram was done which was negative for heart failure I think patient has demand supply type II myocardial ischemia. (9) Pneumonia Is this a current diagnosis for this admission?: Yes Plan: 05/01/2019-CT scan done in the emergency room suggestive of consolidation changes in the lung bases. Most likely secondary to community-acquired pneumonia. Presently on IV meropenem. Most likely gram-positive organism responsible. Cultures are pending so far. 05/02/2019-blood cultures came back positive for gram-positive cocci in clusters and a CT scan done in the emergency room suggestive of consolidation to changes at the bases presently on IV meropenem T-max is 99.3 plan is to continue the present management. 05/03/2019-blood cultures came back positive for gram-positive cocci in clusters and CT scanning of the chest suggestive of consolidated pneumonias. Presently on IV meropenem T-max is 98.8 and WBC count is within normal limits now. 05/04/2019-latest chest x-ray indicates perihilar fullness present no focal con solidation. (10) NARDA (acute kidney injury) Is this a current diagnosis for this admission?: Yes Plan: 05/02/2019-serum creatinine is 1.55 yesterday improved to 0.63. AK most likely secondary to prerenal causes resolved. Baseline creatinine is around 0.6. 05/03/2019-patient's latest creatinine is 0.68 on admission it is 1.55 acute kidney injury most likely due to prerenal causes resolved. 05/04/2019-latest serum creatinine is 0.68 on admission it is 1.55. Today's labs are pending acute kidney injury most likely secondary to poor oral intake resolved. (11) Bilateral pulmonary embolism Is this a current diagnosis for this admission?: No Plan: 05/04/2019-patient has history of bilateral pulmonary embolism patient is on Eliquis at home plan is to restart Eliquis 5 mg p.o. twice daily from today. - Time Time Spent with patient: 35 or more minutes Smoking Cessation Education: over 10 minutes Medications reviewed and adjusted accordingly: Yes Anticipated discharge: Home
[2019-05-04] MEDS ORDERED: ACETAMINOPHEN 325 MG TABLET PO PRN (08:52)
[2019-05-04 08:55] LABS: HEMATOCRIT 35.9 % (36.0-47.0); HEMOGLOBIN 11.9 g/dL (12.0-15.5); MEAN CORPUSCULAR HEMOGLOBIN 28.9 pg (27.0-33.4); MEAN CORPUSCULAR HGB CONC 33.1 g/dL (32.0-36.0); MEAN CORPUSCULAR VOLUME 87 fl (80-97); PLATELET COUNT 354 10^3/uL (150-450); RED BLOOD COUNT 4.11 10^6/uL (3.72-5.28); RED CELL DISTRIBUTION WIDTH 14.2 % (11.5-14.0); WHITE BLOOD COUNT 13.4 10^3/uL (4.0-10.5)
[2019-05-04 09:04] LABS: ALANINE AMINOTRANSFERASE 22 U/L (9-52); ALBUMIN 2.9 g/dL (3.5-5.0); ALKALINE PHOSPHATASE 71 U/L (38-126); ANION GAP 7 (5-19); ASPARTATE AMINO TRANSFERASE 17 U/L (14-36); BILIRUBIN,DIRECT 0.3 mg/dL (0.0-0.4); BILIRUBIN,TOTAL 0.4 mg/dL (0.2-1.3); BLOOD UREA NITROGEN 9 mg/dL (7-20); CALCIUM 8.8 mg/dL (8.4-10.2); CARBON DIOXIDE 27 mmol/L (22-30); CHLORIDE 104 mmol/L (98-107); GLUCOSE 112 mg/dL (75-110); POTASSIUM 4.5 mmol/L (3.6-5.0); TOTAL PROTEIN 6.1 g/dL (6.3-8.2)
[2019-05-04 09:39] LABS: ABSOLUTE LYMPHOCYTES# (MANUAL) 2.5 10^3/uL (0.5-4.7); ABSOLUTE MONOCYTES # (MANUAL) 0.8 10^3/uL (0.1-1.4); ABSOLUTE NEUTROPHILS# (MANUAL) 10.1 10^3/uL (1.7-8.2); BASOPHILS % (MANUAL) 0 % (0-2); EOSINOPHILS % (MANUAL) 0 % (0-6); LYMPHOCYTES % (MANUAL) 19 % (13-45); MONOCYTES % (MANUAL) 6 % (3-13); SEGMENTED NEUTROPHILS % (MAN) 75 % (42-78); TOTAL CELLS COUNTED 100
[2019-05-04 09:43] LABS: ANISOCYTOSIS SLIGHT; OVALOCYTES SLIGHT; PLATELET CLUMPS PRESENT; PLATELET COMMENT ADEQUATE; POIKILOCYTOSIS SLIGHT; POLYCHROMASIA SLIGHT; TOXIC GRANULATION SLIGHT; TOXIC VACUOLATION PRESENT
[2019-05-04] MEDS ORDERED: NICOTINE 14 MG/24 HR PATCH.TD24 TD SCH (10:00)
[2019-05-04] MEDS ORDERED: ASPIRIN 325 MG TABLET ONE (10:06)
[2019-05-04] MEDS: FAMOTIDINE 20 MG TABLET PO SCH ×2 (10:13→21:48)
[2019-05-04] MEDS: APIXABAN 5 MG TABLET PO SCH ×2 (10:13→17:00)
[2019-05-04] MEDS ORDERED: ASPIRIN 325 MG TABLET, ENT COATED PO ONE (11:00)
[2019-05-04] MEDS ORDERED: LISINOPRIL 10 MG TABLET PO SCH (11:30)
[2019-05-04] MEDS ORDERED: ATORVASTATIN CALCIUM 20 MG TABLET PO SCH (22:00)
[2019-05-04] MEDS ORDERED: IBUPROFEN 600 MG TABLET PO PRN (23:20)
[2019-05-04] MEDS ORDERED: MELATONIN 3 MG TABLET PO PRN (23:21)
[2019-05-05] MEDS: MEROPENEM 1 GM in NORMAL SALINE 50 ML IV SCH (00:30)
[2019-05-05 00:33] VITALS: BP 140/74
--- NOTE | 2019-05-05 06:11 | Left Against Medical Advice ---
Against Medical Advice Admission Date/Time: 05/01/19 00:00 Primary Care Provider: CHER ALFARO MD Date of Patient Emigration: 05/05/19 - Diagnosis: (1) Urinary tract infection Is this a current diagnosis for this admission?: Yes (2) Sepsis Is this a current diagnosis for this admission?: Yes (3) Acute respiratory failure with hypoxia Is this a current diagnosis for this admission?: Yes (4) Acute encephalopathy Is this a current diagnosis for this admission?: Yes (5) Chronic obstructive pulmonary disease Is this a current diagnosis for this admission?: Yes (6) Diet-controlled type 2 diabetes mellitus Is this a current diagnosis for this admission?: Yes - Summary: Summary: Please see Admission and Progress Notes as well. LÓPEZ CASTILLO is a 58 F, who LEFT AGAINST MEDICAL ADVICE. The Patient was admitted on 05/01/19 00:00. On the community resource consultant of 05/05/2019 patient became agitated and insisted on having her IV removed and she was leaving the hospital. Patient was advised by the nursing staff that this was not in her best interest however she was adamant about leaving and therefore she was allowed to leave the hospital AGAINST MEDICAL ADVICE.
== END 2019-05-05 03:46 | disposition left against medical advice (07) | DRG 871 ==
LOC: ER 16:45 → EH 05-01 → ICU 05-01 01:44 → 3N 05-04 12:37
PROVIDERS: ADMIT Emergency Medicine; ATTEND Emergency Medicine
PROC: 0BH17EZ Insertion of Endotracheal Airway into Trachea, Via Natural or Artificial Opening (ICD-10-PCS; principal; 2019-04-30)
PROC: 5A1945Z Respiratory Ventilation, 24-96 Consecutive Hours (ICD-10-PCS; 2019-04-30)
DX: A41.9 Sepsis, unspecified organism (principal); J96.01 Acute respiratory failure with hypoxia; J18.9 Pneumonia, unspecified organism; I21.A1 Myocardial infarction type 2; N39.0 Urinary tract infection, site not specified; G93.40 Encephalopathy, unspecified; E87.1 Hypo-osmolality and hyponatremia; N17.9 Acute kidney failure, unspecified; I50.9 Heart failure, unspecified; I11.0 Hypertensive heart disease with heart failure; E11.8 Type 2 diabetes mellitus with unspecified complications; E87.5 Hyperkalemia; J44.9 Chronic obstructive pulmonary disease, unspecified; E78.00 Pure hypercholesterolemia, unspecified; K21.9 Gastro-esophageal reflux disease without esophagitis; M19.90 Unspecified osteoarthritis, unspecified site; F17.210 Nicotine dependence, cigarettes, uncomplicated; B96.20 Unspecified Escherichia coli [E. coli] as the cause of diseases classified elsewhere; I25.2 Old myocardial infarction; Z86.711 Personal history of pulmonary embolism; Z86.73 Personal history of transient ischemic attack (TIA), and cerebral infarction without residual deficits; Z90.11 Acquired absence of right breast and nipple; Z79.01 Long term (current) use of anticoagulants; Z79.82 Long term (current) use of aspirin; Z79.51 Long term (current) use of inhaled steroids; Z79.899 Other long term (current) drug therapy
CPT/HCPCS: 36415; 70450; 71045; 71275; 80053; 80307; 81001; 82550; 82553; 82803; 82962; 83036; 83605; 83735; 84484; 85025; 85610; 87040; 87077; 87086; 87088; 87186; 93005; 93010; 93306; 93971; 94002; 94003; 94640; 96361; 96374; 96375; 99291; J0360; J0696; J1644; J2060; J2185; J2250; J2270; J2405; J3490; J7030; J7120; J7614; J7620; S0028

== ENCOUNTER 2019-09-02 17:27 | Emergency (ER) | payer SELFPAY ==
--- NOTE | 2019-09-02 17:57 | ER Document Report ---
ED Medical Screen (RME) - General Chief Complaint: Abscess Stated Complaint: ABSCESS/BUTTOCK Time Seen by Provider: 09/02/19 17:49 Primary Care Provider: CHER ALFARO MD [Primary Care Provider] - Follow up as needed Notes: 59-year-old female with [id number] diabetes mellitus and multiple comorbidities to include bilateral PEs currently on Eliquis presents to the emergency department with an abscess on her inferior right gluteus. Patient states that the last time she had an abscess like this he "ended up septic". No fevers or chills, no nausea or vomiting, chief complaint is significant pain and burning at the site. Exam: Large abscess acutely tender to touch on the right inferior gluteus with surrounding erythema I have greeted and performed a rapid initial assessment of this patient. A comprehensive ED assessment and evaluation of the patient, analysis of test results and completion of medical decision making process will be conducted by an additional ED providers. TRAVEL OUTSIDE OF THE [place] IN LAST 30 DAYS: No - Related Data Allergies/Adverse Reactions: Paclitaxel,Semi-Synthetic [From Taxol] Allergy (Severe, Verified 09/02/19 17:47) Fever, rash, eyes swell Sulfa (Sulfonamide Antibiotics) Allergy (Severe, Verified 09/02/19 17:47) sulfasalazine [From Azulfidine] Allergy (Severe, Verified 09/02/19 17:47) Fever, rash, swelling cephalexin Allergy (Verified 09/02/19 17:47) clindamycin Allergy (Verified 09/02/19 17:47) multiple antibiotics Allergy (Severe, Uncoded 09/02/19 17:47) n and v, itching, swelling Home Medications: gabapentin, lisinopril, eliquis, asa, albuterol, enbrel, flonase Past Medical History - Social History Chew tobacco use (# tins/day): No Frequency of alcohol use: Rare Drug Abuse: None - Past Medical History Cardiac Medical History: Reports: Hx Congestive Heart Failure, Hx Coronary Artery Disease, Hx DVT, Hx Heart Attack - 1993,"silent [place]", Hx Hypercholesterolemia, Hx Hypertension - on meds, Hx Pulmonary Embolism, Hx Heart Murmur Pulmonary Medical History: Reports: Hx Asthma, Hx COPD, Hx Pneumonia Denies: Hx Bronchitis Neurological Medical History: Reports: Hx Cerebrovascular Accident - "mild stroke". Denies: Hx Seizures Endocrine Medical History: Reports: Hx Diabetes Mellitus Type 2 - diet controlled. Denies: Hx Diabetes Mellitus Type 1, Hx Hyperthyroidism, Hx Hypothyroidism Renal/ Medical History: Denies: Hx Peritoneal Dialysis Malignancy Medical History: Reports: Hx Breast Cancer - Status post right mastectomy GI Medical History: Reports: Hx Gastroesophageal Reflux Disease. Denies: Hx Cirrhosis, Hx Hepatitis Musculoskeltal Medical History: Reports Hx Arthritis - rheumatoid, Denies Hx Gout Skin Medical History: Denies Hx Eczema, Denies Hx Psoriasis Psychiatric Medical History: Denies: Hx Dementia Infectious Medical History: Reports: Hx MRSA. Denies: Hx Hepatitis Past Surgical History: Reports: Hx Breast Surgery, Hx Mastectomy - right, 2005, Hx Tonsillectomy, Hx Tubal Ligation - Immunizations Hx Diphtheria, Pertussis, Tetanus Vaccination: Yes Physical Exam - Vital signs Vitals: Temp Pulse Resp BP Pulse Ox 98.2 F 106 H 20 139/96 H 100 09/02/19 17:36 09/02/19 17:36 09/02/19 17:36 09/02/19 17:36 09/02/19 17:36 Course - Vital Signs Vital signs: Temp Pulse Resp BP Pulse Ox 98.2 F 106 H 20 139/96 H 100 09/02/19 17:36 09/02/19 17:36 09/02/19 17:36 09/02/19 17:36 09/02/19 17:36 Doctor's Discharge - Discharge Referrals: CHER ALFARO MD [Primary Care Provider] - Follow up as needed
[2019-09-02] MEDS ORDERED: HYDROMORPHONE HCL INJ/PF 2 MG/ML AMPULE IM ONE (19:16)
[2019-09-02] MEDS ORDERED: LIDOCAINE 1%/EPINEPHRINE INJ 20 ML VIAL INJ ONE (19:16)
[2019-09-02] MEDS ORDERED: LIDOCAINE 4%/TETRACAINE 0.5%/EPI 0.18% 5 ML TOPICAL SOLN TOP ONE (19:17)
[2019-09-02] MEDS ORDERED: HYDROMORPHONE HCL INJ/PF 2 MG/ML AMPULE IV ONE (21:16)
[2019-09-02 22:06] LABS: ABSOLUTE BASOPHILS # (AUTO) 0.1 10^3/uL (0.0-0.2); ABSOLUTE EOSINOPHILS # (AUTO) 0.2 10^3/uL (0.0-0.6); ABSOLUTE LYMPHOCYTES (AUTO) 3.2 10^3/uL (0.5-4.7); ABSOLUTE MONOCYTES (AUTO) 0.6 10^3/uL (0.1-1.4); ABSOLUTE NEUT (AUTO) 5.3 10^3/uL (1.7-8.2); BASOPHILS % (AUTO) 0.9 % (0-2); EOSINOPHILS % (AUTO) 1.6 % (0-6); HEMATOCRIT 37.1 % (36.0-47.0); HEMOGLOBIN 12.6 g/dL (12.0-15.5); LYMPHOCYTES % (AUTO) 34.4 % (13-45); MEAN CORPUSCULAR HEMOGLOBIN 31.2 pg (27.0-33.4); MEAN CORPUSCULAR VOLUME 92 fl (80-97); MONOCYTES % (AUTO) 6.8 % (3-13); PLATELET COUNT 370 10^3/uL (150-450); RED BLOOD COUNT 4.03 10^6/uL (3.72-5.28); RED CELL DISTRIBUTION WIDTH 14.8 % (11.5-14.0); SEGMENTED NEUTROPHILS % (AUTO) 56.3 % (42-78); TOTAL CELLS COUNTED % (AUTO) 100 %; WHITE BLOOD COUNT 9.4 10^3/uL (4.0-10.5)
[2019-09-02 22:21] LABS: ALBUMIN 3.5 g/dL (3.5-5.0); ALKALINE PHOSPHATASE 62 U/L (38-126); ANION GAP 6 (5-19); ASPARTATE AMINO TRANSFERASE 25 U/L (14-36); BILIRUBIN,DIRECT 0.2 mg/dL (0.0-0.4); BILIRUBIN,TOTAL 0.4 mg/dL (0.2-1.3); BLOOD UREA NITROGEN 17 mg/dL (7-20); CALCIUM 9.1 mg/dL (8.4-10.2); CARBON DIOXIDE 25 mmol/L (22-30); CHLORIDE 108 mmol/L (98-107); GLUCOSE 105 mg/dL (75-110); POTASSIUM 4.6 mmol/L (3.6-5.0); TOTAL PROTEIN 7.3 g/dL (6.3-8.2)
[2019-09-02 23:35] VITALS: BP 139/72
--- NOTE | 2019-09-03 00:41 | RADIOLOGY REPORT (SQ) ---
EXAM DESCRIPTION: [facility]: CT PELVIS WITH IV CONTRAST CLINICAL HISTORY: 59 years Female; large area erythema/pain right buttock. CREAT 0.81 TECHNIQUE: CT pelvis with contrast All CT scans at this facility use dose modulation, iterative reconstruction, and/or weight based dosing when appropriate to reduce radiation dose to as low as reasonably achievable. COMPARISON: None. FINDINGS: There is subcutaneous edema in the right buttock, extending over an area approximately 4.5 cm craniocaudal by 7.7 cm LR. The edema extends down to the muscle, although there is no muscular edema or enhancement. No focal fluid collections. No soft tissue air. Colonic diverticulosis is noted. No acute pericolonic edema. No colonic distention. Uterus is unremarkable. No adnexal enlargement. No acute fractures. No lytic bone changes. IMPRESSION: 1. Localized subcutaneous edema in the right buttock, consistent with a localized cellulitis. 2. No abscess. 3. Colonic diverticulosis but no evidence for acute diverticulitis
--- NOTE | 2019-09-03 01:11 | ER Document Report ---
ED Skin Rash/Insect Bite/Abscs - General Chief Complaint: Abscess Stated Complaint: ABSCESS/BUTTOCK Time Seen by Provider: 09/02/19 17:49 Primary Care Provider: CHER ALFARO MD [Primary Care Provider] - Follow up as needed TRAVEL OUTSIDE OF THE [place] IN LAST 30 DAYS: No - HPI Notes: Patient presents with right buttock pain. She states that she has noticed an area of tenderness and redness for the last 3 to 4 days. She states she feels she may have been bitten by a brown recluse. She states his pain is severe. It is constant. It is worse if touched or if she sits on it. It is better if left alone. It does radiate into her right leg. No fevers. No vomiting or diarrhea. No abdominal pain. - Related Data Allergies/Adverse Reactions: Paclitaxel,Semi-Synthetic [From Taxol] Allergy (Severe, Verified 09/02/19 17:47) Fever, rash, eyes swell Sulfa (Sulfonamide Antibiotics) Allergy (Severe, Verified 09/02/19 17:47) sulfasalazine [From Azulfidine] Allergy (Severe, Verified 09/02/19 17:47) Fever, rash, swelling cephalexin Allergy (Verified 09/02/19 17:47) clindamycin Allergy (Verified 09/02/19 17:47) multiple antibiotics Allergy (Severe, Uncoded 09/02/19 17:47) n and v, itching, swelling Home Medications: gabapentin, lisinopril, eliquis, asa, albuterol, enbrel, flonase Past Medical History - General Information source: Patient - Social History Smoking Status: Former Smoker Chew tobacco use (# tins/day): No Frequency of alcohol use: Rare Drug Abuse: None Family History: Malignancy, Other - Patient sedated and could not provide any history. Limited history obtained from significant other. Patient has suicidal ideation: No Patient has homicidal ideation: No - Past Medical History Cardiac Medical History: Reports: Hx Congestive Heart Failure, Hx Coronary Artery Disease, Hx DVT, Hx Heart Attack - 1993,"silent [place]", Hx Hypercholesterolemia, Hx Hypertension - on meds, Hx Pulmonary Embolism, Hx Heart Murmur Pulmonary Medical History: Reports: Hx Asthma, Hx COPD, Hx Pneumonia Denies: Hx Bronchitis Neurological Medical History: Reports: Hx Cerebrovascular Accident - "mild stroke". Denies: Hx Seizures Endocrine Medical History: Reports: Hx Diabetes Mellitus Type 2 - diet controlled. Denies: Hx Diabetes Mellitus Type 1, Hx Hyperthyroidism, Hx Hypothyroidism Renal/ Medical History: Denies: Hx Peritoneal Dialysis Malignancy Medical History: Reports: Hx Breast Cancer - Status post right mastectomy GI Medical History: Reports: Hx Gastroesophageal Reflux Disease. Denies: Hx Cirrhosis, Hx Hepatitis Musculoskeletal Medical History: Reports Hx Arthritis - rheumatoid, Denies Hx Gout Skin Medical History: Denies Hx Eczema, Denies Hx Psoriasis Psychiatric Medical History: Denies: Hx Dementia Infectious Medical History: Reports: Hx MRSA. Denies: Hx Hepatitis Past Surgical History: Reports: Hx Breast Surgery, Hx Mastectomy - right, 2005, Hx Tonsillectomy, Hx Tubal Ligation - Immunizations Hx Diphtheria, Pertussis, Tetanus Vaccination: Yes Hx Pneumococcal Vaccination: 08/20/09 Review of Systems - Review of Systems Constitutional: denies: Chills, Fever Cardiovascular: denies: Chest pain, Palpitations Respiratory: denies: Cough, Short of breath -: Yes All other systems reviewed and negative Physical Exam - Vital signs Vitals: Temp Pulse Resp BP Pulse Ox 98.2 F 106 H 20 139/96 H 100 09/02/19 17:36 09/02/19 17:36 09/02/19 17:36 09/02/19 17:36 09/02/19 17:36 Interpretation: Normal, Other - On my exam pt was not tachycardic with pulse of 92. - General General appearance: Appears well, Alert - HEENT Head: Normocephalic, Atraumatic Eyes: Normal Pupils: PERRL - Respiratory Respiratory status: No respiratory distress Chest status: Nontender Breath sounds: Normal Chest palpation: Normal - Cardiovascular Rhythm: Regular Heart sounds: Normal auscultation Murmur: No - Abdominal Inspection: Normal Distension: No distension Bowel sounds: Normal Tenderness: Nontender Organomegaly: No organomegaly - Back Back: Normal, Nontender - Extremities General upper extremity: Normal inspection, Nontender, Normal color, Normal ROM, Normal temperature General lower extremity: Normal inspection, Nontender, Normal color, Normal ROM, Normal temperature, Normal weight bearing. No: German's sign - Neurological Neuro grossly intact: Yes Cognition: Normal Orientation: AAOx4 [place] Coma Scale Eye Opening: Spontaneous [place] Coma Scale Verbal: Oriented [place] Coma Scale Motor: Obeys Commands [place] Coma Scale Total: 15 Speech: Normal Motor strength normal: LUE, RUE, LLE, RLE Sensory: Normal - Psychological Associated symptoms: Normal affect, Normal mood - Skin Skin Temperature: Warm Skin Moisture: Dry Skin Color: Other - Patient has an area of erythema tenderness and mild fluctuance on the right buttocks. It does not extend into the perirectal area. Area is tender to palpation. And has some warmth. It is consistent with an abscess. Course - Re-evaluation Re-evalutation: 09/03/19 01:08 Patient presents with an area of erythema fluctuance and tenderness. It appeared consistent with an abscess however I performed an I&D and got minimal drainage from the site. I then CT the area and it shows no significant fluid collection and was consistent with a cellulitis. The patient has no fever and no elevated white blood cell count. Her vital signs are stable. I will discharge her home on antibiotics and have her rechecked in approximately 2 days. - Vital Signs Vital signs: Temp Pulse Resp BP Pulse Ox 98.0 F 84 18 139/72 H 95 09/02/19 23:29 09/02/19 23:29 09/02/19 23:29 09/02/19 23:29 09/02/19 23:29 - Laboratory Result Diagrams: 09/02/19 21:40 09/02/19 21:40 Laboratory results interpreted by me: 09/02/19 09/02/19 21:40 21:40 RDW 14.8 H Chloride 108 H - Diagnostic Test Radiology reviewed: Image reviewed, Reports reviewed Procedures - Incision and Drainage Right Buttock Time completed: 10:00 Type: Simple Anesthetic type: 1% Lidocaine mL's of anesthetic: 2 Blade size: 11 I&D procedure: Sterile dressing applied Incision Method: Incision made by scalpel Amount/type of drainage: blood, minimal serous Discharge - Discharge Clinical Impression: Cellulitis of right buttock Condition: Stable Disposition: HOME, SELF-CARE Instructions: Post Incision and Drainage, Oral Narcotic Medication ([facility]), MRSA Cellulitis ([facility]) Additional Instructions: It is very important that you are rechecked within 48 hours. Please return here to the emergency department or go to your primary care physician for a recheck of the area of infection on your right buttock. Please return sooner if problems with increasing pain, fevers, or any other concerns. Prescriptions: Doxycycline Hyclate 100 mg PO BID #14 capsule Cephalexin Monohydrate [Keflex 500 mg Capsule] 500 mg PO Q6H 5 Days capsule Hydrocodone/Acetaminophen [[place] 5-325 mg Tablet] 1 tab PO Q6 PRN 3 Days #12 tablet PRN Reason: Referrals: CHER ALFARO MD [Primary Care Provider] - 09/05/19
[2019-09-03] MEDS ORDERED: AMOXICILLIN TR/POT CLAVULANATE 500-125 MG TAB PO ONE (01:41)
== END 2019-09-03 01:53 | disposition home or self-care (01) ==
LOC: ER 17:27
DX: L03.317 Cellulitis of buttock (principal); I25.10 Atherosclerotic heart disease of native coronary artery without angina pectoris; I10 Essential (primary) hypertension; I25.2 Old myocardial infarction; J44.9 Chronic obstructive pulmonary disease, unspecified; E11.9 Type 2 diabetes mellitus without complications; M06.9 Rheumatoid arthritis, unspecified; Z79.899 Other long term (current) drug therapy; Z79.02 Long term (current) use of antithrombotics/antiplatelets; Z79.82 Long term (current) use of aspirin; Z87.891 Personal history of nicotine dependence; Z85.3 Personal history of malignant neoplasm of breast; Z86.711 Personal history of pulmonary embolism; Z86.718 Personal history of other venous thrombosis and embolism; Z86.14 Personal history of Methicillin resistant Staphylococcus aureus infection; Z88.8 Allergy status to other drugs, medicaments and biological substances; Z88.2 Allergy status to sulfonamides; Z88.1 Allergy status to other antibiotic agents
CPT/HCPCS: 10060; 36415; 85025; 80053; 72193; J3490 ×2; J1170; 99283

== ENCOUNTER → 2019-11-29 | Outpatient (CLI) | payer MEDICAID ==
[2019-11-29 10:36] LABS: ABSOLUTE LYMPHOCYTES (AUTO) 1.5 10^3/uL (0.5-4.7); ABSOLUTE MONOCYTES (AUTO) 0.2 10^3/uL (0.1-1.4); ABSOLUTE NEUT (AUTO) 9.8 10^3/uL (1.7-8.2); BASOPHILS % (AUTO) 0.2 % (0-2); EOSINOPHILS % (AUTO) 0.2 % (0-6); HEMATOCRIT 39.2 % (36.0-47.0); HEMOGLOBIN 13.2 g/dL (12.0-15.5); LYMPHOCYTES % (AUTO) 12.9 % (13-45); MEAN CORPUSCULAR HEMOGLOBIN 30.8 pg (27.0-33.4); MEAN CORPUSCULAR HGB CONC 33.8 g/dL (32.0-36.0); MEAN CORPUSCULAR VOLUME 91 fl (80-97); MONOCYTES % (AUTO) 1.4 % (3-13); PLATELET COUNT 317 10^3/uL (150-450); RED BLOOD COUNT 4.31 10^6/uL (3.72-5.28); RED CELL DISTRIBUTION WIDTH 15.6 % (11.5-14.0); SEGMENTED NEUTROPHILS % (AUTO) 85.3 % (42-78); TOTAL CELLS COUNTED % (AUTO) 100 %; WHITE BLOOD COUNT 11.4 10^3/uL (4.0-10.5)
[2019-11-29 10:49] LABS: ALBUMIN 3.9 g/dL (3.5-5.0); ALKALINE PHOSPHATASE 72 U/L (38-126); ANION GAP 10 (5-19); ASPARTATE AMINO TRANSFERASE 25 U/L (14-36); BILIRUBIN,DIRECT 0.3 mg/dL (0.0-0.4); BILIRUBIN,TOTAL 0.4 mg/dL (0.2-1.3); BLOOD UREA NITROGEN 29 mg/dL (7-20); C-REACTIVE PROTEIN 10.5 mg/L (<10.0); CALCIUM 9.5 mg/dL (8.4-10.2); CARBON DIOXIDE 24 mmol/L (22-30); CHLORIDE 104 mmol/L (98-107); GLUCOSE 121 mg/dL (75-110); POTASSIUM 5.2 mmol/L (3.6-5.0); TOTAL PROTEIN 7.9 g/dL (6.3-8.2)
[2019-11-29 11:15] LABS: ERYTHROCYTE SEDIMENTATION RATE 60 mm/hr (0-30)
--- NOTE | 2019-11-29 15:32 | RADIOLOGY REPORT (SQ) ---
EXAM DESCRIPTION: OS CALCIS/HEEL LEFT COMPLETED DATE/TIME: 11/29/2019 9:46 am REASON FOR STUDY: NON-PRS CHR ULCER OF LEFT HEEL AND MIDFOOT W FAT LAYER EXPOS L97.422 NON-PRS CHR ULCER OF LEFT HEEL AND MIDFOOT W FAT LAY E11.621 TYPE 2 DIABETES MELLITUS WITH FOOT ULCER COMPARISON: Plan turn oblique views of the left calcaneus from 05/06/2015. NUMBER OF VIEWS: Two views. TECHNIQUE: Plantar and oblique radiographic images acquired of the left calcaneous. LIMITATIONS: None. FINDINGS: MINERALIZATION: Normal. BONES: Erosion of the calcaneus adjacent to soft tissue defect. SOFT TISSUES: Soft tissue defect posterior to the calcaneus. OTHER: No other finding. IMPRESSION: Findings concerning for osteomyelitis of the calcaneus. TECHNICAL DOCUMENTATION: JOB ID: [id number] [employer]- All Rights Reserved Reading location - IP/workstation name: [email or web address]
== END ==
LOC: WC 09:23
PROVIDERS: ATTEND Surgery
DX: E11.621 Type 2 diabetes mellitus with foot ulcer (principal); L97.422 Non-pressure chronic ulcer of left heel and midfoot with fat layer exposed; M85.872 Other specified disorders of bone density and structure, left ankle and foot
CPT/HCPCS: 36415; 80053; 83036; 85025; 85652; 86140

== ENCOUNTER → 2019-12-05 | Outpatient (CLI) | payer MEDICAID ==
--- NOTE | 2019-12-06 12:16 | XCELERA REPORT ---
[address] [address] Lower Extremity Arterial Evaluation Name: LÓPEZ CASTILLO Age: 59 yrs Gender: Female : 1960 Patient Status: Outpatient Patient Location: Study Date: 12/05/2019 09:58 AM Procedure: A color flow and duplex scan of the lower extremity arteries was performed bilaterally with velocity and waveform anaylsis. Ankle brachial indicies performed. Reason For Study: LT HEEL ULCER Ordering Physician: MARII WELCH Performed By: Rupesh Madrid Measurements and Calculations Right Left DIRECTOR OF SURGERY PSV 134.5 113.8 cm/sec Prox PFA PSV -62.9 -66.4 cm/sec Prox SFA PSV -95.3 116.3 cm/sec Mid SFA PSV -97.7 -120.1cm/sec Dist SFA PSV -104.8 -136.9cm/sec Prox Pop A PSV 85.5 91.0 cm/sec Dist Pop A PSV -86.6 -92.1 cm/sec Dist JUAN JOSE PSV 94.3 73.8 cm/sec Dist STAFF TRAINER PSV 80.5 81.2 cm/sec Gm Pedis PSV 89.1 -83.0 cm/sec Right Side Arterial Evaluation Normal velocity and triphasic waveforms noted from the Common Femoral artery to the infrageniculate vessels . Ankle Brachial index 0.98. Left Side Arterial Evaluation Normal velocity and triphasic waveforms noted from the Common Femoral artery to the infrageniculate vessels . Ankle Brachial index 0.95. Interpretation Summary No hemodynamically significant lesions in the bilateral lower extremities, on duplex imaging, at rest. YORDAN's are normal suggesting no significant obstructive arterial disease. : MARII WELCH > Marii Welch
== END ==
LOC: SP 09:30
PROVIDERS: ATTEND Surgery
DX: L97.422 Non-pressure chronic ulcer of left heel and midfoot with fat layer exposed (principal)
CPT/HCPCS: 93922; 93925

== ENCOUNTER 2019-12-09 09:43 | Day surgery (SDC) | payer MEDICAID ==
[~2019-12-09 09:43] MED LIST: LACTATED RINGERS 1000 ML IV PRN; LIDOCAINE 0.5% INJ-PF (5 MG/ML) 50 ML SDV SUBCUT PRN
[2019-12-09] MEDS ORDERED: PHENYLEPHRINE HCL INJ/PF 10 MG/1 ML SDV ONE (10:16)
[2019-12-09 12:44] LABS: ANION GAP 8 (5-19); BLOOD UREA NITROGEN 21 mg/dL (7-20); CALCIUM 9.3 mg/dL (8.4-10.2); CARBON DIOXIDE 26 mmol/L (22-30); CHLORIDE 104 mmol/L (98-107); GLUCOSE 101 mg/dL (75-110); POTASSIUM 4.6 mmol/L (3.6-5.0)
[2019-12-09] MEDS ORDERED: LIDOCAINE 0.5% INJ-PF (5 MG/ML) 50 ML SDV ONE ×2 (12:49→13:30)
[2019-12-09] MEDS ORDERED: BUPIVACAINE HCL 0.25 % INJ/PF (2.5 MG/1 ML) 30 ML VIAL ONE (13:30)
[2019-12-09] MEDS ORDERED: ONDANSETRON HCL INJ/PF 4 MG/2 ML SDV ONE (13:55)
[2019-12-09] MEDS ORDERED: FENTANYL CITRATE INJ/PF 100 MCG/2 ML AMPUL ONE (13:55)
[2019-12-09] MEDS ORDERED: PROPOFOL INJ 200 MG/20 ML VIAL IV ONE ×2 (13:55→14:37)
[2019-12-09] MEDS ORDERED: MIDAZOLAM 2 MG/2 ML INJ ONE (13:55)
--- NOTE | 2019-12-09 14:07 | PDOC H&P ---
General Chief Complaint: This patient presents with a wound of the left heel with necrosis. She is therefore admitted for debridement. Debridement is not possible as an outpatient because of excessive pain and the burden of necrosis. - Diagnosis (1) Blister of left heel with infection Is this a Current Diagnosis?: Yes (2) Chronic obstructive pulmonary disease Is this a Current Diagnosis?: Yes (3) Diabetes Is this a Current Diagnosis?: Yes (4) History of COPD Is this a Current Diagnosis?: Yes (5) Rheumatoid arthritis Is this a Current Diagnosis?: Yes (6) Tobacco abuse Is this a Current Diagnosis?: Yes - Current Medications/Allergies Home Medications: Albuterol Sulfate [Albuterol Sulfate Hfa] 2 puff IH ASDIR PRN 12/09/19 Albuterol Sulfate [Ventolin 0.083% Neb 2.5 mg/3 mL Ampul] 1 vial IH ASDIR PRN 12/09/19 Apixaban [Eliquis 5 mg Tablet] 1 tab PO DAILY 12/09/19 Aspirin 81 mg PO DAILY 12/09/19 Esomeprazole Magnesium [Nexium] 20 mg PO DAILY 12/09/19 Etanercept [Enbrel] SQ Q7D 12/09/19 Gabapentin [Neurontin 300 mg Capsule] 2 tab PO TID 12/09/19 Lisinopril 20 mg PO DAILY 12/09/19 Oxycodone HCl 15 mg PO TID 12/09/19 Allergies/Adverse Reactions: Paclitaxel,Semi-Synthetic [From Taxol] Allergy (Severe, Verified 12/09/19 12:28) Fever, rash, eyes swell Sulfa (Sulfonamide Antibiotics) Allergy (Severe, Verified 12/09/19 12:28) sulfasalazine [From Azulfidine] Allergy (Severe, Verified 12/09/19 12:28) Fever, rash, swelling cephalexin Allergy (Verified 12/09/19 12:28) clindamycin Allergy (Verified 12/09/19 12:28) multiple antibiotics Allergy (Severe, Uncoded 12/09/19 12:28) n and v, itching, swelling Past Medical History Cardiac Medical History: Reports: Congestive Heart Failure, Coronary Artery Disease, DVT, Myocardial Infarction - 1993,"silent CT", Hyperlipidema, Hypertension - on meds, Pulmonary Embolism, Heart Murmur Pulmonary Medical History: Reports: Asthma, Chronic Obstructive Pulmonary Disease (COPD), Pneumonia Denies: Bronchitis Neurological Medical History: Denies: Seizures Endocrine Medical History: Reports: Diabetes Mellitus Type 2 - diet controlled Denies: Diabetes Mellitus Type 1, Hyperthyroidism, Hypothyroidism Malignancy Medical History: Reports: Breast Cancer - Status post right mastectomy GI Medical History: Reports: Gastroesophageal Reflux Disease Denies: Cirrhosis, Hepatitis Musculoskeltal Medical History: Reports: Arthritis - rheumatoid Denies: Gout Skin Medical History: Denies: Eczema, Psoriasis Psychiatric Medical History: Denies: Dementia Hematology: Reports: Anemia - hx of Denies: Sickle Cell Disease, Bleeding Tendencies Infectious Medical History: Reports: Methicillin-Resistant Staph Aureus Past Surgical History Past Surgical History: Reports: Mastectomy - right, 2005, Tonsillectomy, Tubal Ligation Denies: Amputation Family History Family History: Malignancy, Other Parental Family History Reviewed: No Children Family History Reviewed: No Sibling(s) Family History Reviewed.: No Social History Smoking Status: Current Every Day Smoker Frequency of Alcohol Use: Occasional Hx Recreational Drug Use: No Drugs: None Hx Prescription Drug Abuse: No Physical Exam Vital Signs: Temp Pulse Resp BP Pulse Ox 97.8 F 88 18 142/89 H 93 12/09/19 12:25 12/09/19 12:25 12/09/19 12:25 12/09/19 12:25 12/09/19 12:25 Intake & Output 12/08/19 12/09/19 12/10/19 06:59 06:59 06:59 Weight 86.18 kg Additional comments: Constitutional: Well-developed well-nourished lady. No apparent acute distress. Eyes: Mucous membranes pink and moist, pupils equal and reactive to light. Conjunctiva normal. Cornea normal. Wears spectacles ENT: Hearing grossly normal. External pinna normal to inspection. Teeth pa rtially intact. Tongue normal to inspection. Cardiac: Heart sounds 1 and 2 normal, no murmurs. Respiratory: breath sounds are present bilaterally, normal. Normal respiratory effort. Skin: Significant for necrosis of the left heel about 3 cm across. Psychiatric: Judgment, memory, insight seem normal. Mood is pleasant and appropriate. Extremities: Upper extremities show normal range of movement. Pulses present noted to the radial arteries. Capillary refill normal. No cyanosis noted. No muscle wasting noted. Lower extremities show reduced range of movement. Pulses present noted to the dorsalis pedis artery. Capillary refill normal. No cyanosis noted. No muscle wasting noted. Necrosis and left heel ulcer about 3 cm across. Involving skin and subcutaneous tissues and possible bone. Neurovascular: No apparent tremors, gait impaired, uses a cane. Sensation grossly intact. Hearing grossly normal. Vison grossly intact. Impression/Plan Plan: In this patient with necrosis in the left heel debridement under local with sedation is recommended to get ahead of the necrotic process and facilitate healing. The risks include infection, bleeding, heart, lung complications, injury to other structures. Patient is agreeable and wishes to proceed.
[2019-12-09] MEDS ORDERED: CEFAZOLIN INJ 1 GM VIAL ONE (14:45)
[2019-12-09] MEDS ORDERED: DEXMEDETOMIDINE INJ 80 MCG/20 ML VIAL IV ONE (14:51)
[2019-12-09] MEDS ORDERED: OXYCODONE-ACETAMINOPHEN 5-325 MG TABLET PO PRN ×2 (14:53)
[2019-12-09] MEDS ORDERED: FENTANYL CITRATE INJ/PF 100 MCG/2 ML AMPUL IV PRN ×3 (14:53)
[2019-12-09] MEDS ORDERED: MEPERIDINE HCL/PF INJ 25 MG/1 ML DISP.SYRIN IV PRN (14:53)
[2019-12-09] MEDS ORDERED: MORPHINE SULFATE 10 MG/ML INJ IV PRN (14:53)
[2019-12-09] MEDS ORDERED: PROMETHAZINE HCL INJ 25 MG/1 ML VIAL IV PRN ×2 (14:53)
[2019-12-09] MEDS ORDERED: DIPHENHYDRAMINE HCL 50 MG/ML VIAL IV PRN (14:53)
--- NOTE | 2019-12-09 14:57 | Discharge Summary ---
Discharge Summary (SDC) - Discharge Final Diagnosis: ##1 left heel soft tissue necrosis and infection. 2. COPD. 3. Diabetes mellitus type 2. 4. Tobacco use disorder. Date of Surgery: 12/09/19 Discharge Date: 12/09/19 Condition: Fair Treatment or Instructions: Discharge home [after recovery per ASU criteria]. Diet , diabetic as tolerated, when fully awake advance as tolerated. Activities within moderation encouraged. Follow up in wound clinic by appointment i on Monday of this week]. Call for appointment. Leave wounds [covered], [keep clean and dry, until office visit in 1 week]. Hold of on school/work [until evaluation in office]. Meds per med rec. May shower [in 48 hrs], [try to keep operated area as dry as possible]. Referrals: CHER ALFARO MD [Primary Care Provider] - Discharge Diet: Other (Comments) - Diabetic. Respiratory Treatments at Home: Deep Breathing/Coughing Discharge Activity: Activity As Tolerated Report the Following to Your Physician Immediately: Shortness of Breath, Unusual Bleeding
--- NOTE | 2019-12-09 14:59 | Operative Report ---
Operative Report DATE OF SURGERY: 12/09/19 PREOPERATIVE DIAGNOSIS: #1 left heel soft tissue necrosis and infection. 2. C OPD. 3. Diabetes mellitus type 2. 4. Tobacco use disorder. POSTOPERATIVE DIAGNOSIS: #1 left heel soft tissue necrosis and infection. 2. COPD. 3. Diabetes mellitus type 2. 4. Tobacco use disorder. OPERATION: Surgical, sharp, excisional debridement of left heel. SURGEON: MARII HARKINS VARNISH FINISHER: None. ANESTHESIA: LMAC TISSUE REMOVED OR ALTERED: Skin, subcutaneous tissue and bone. Of the left heel, nonviable. COMPLICATIONS: None. ESTIMATED BLOOD LOSS: 5 mL. INTRAOPERATIVE FINDINGS: Of an approximately 3 cm in diameter area of the left heel extending about a centimeter deep and involving the calcaneus. This contains nonviable skin subcutaneous tissue and bone which was debrided. The remaining tissues seem bleeding and viable. PROCEDURE: PROCEDURE: The [left foot ]was prepared with [Betadine] and draped out with sterile linen. After the"universal time-out", in which it was confirmed that the patient [did receive antibiotic], the procedure commenced. The patient was appropriately anesthetized. The wound was probed. Cultures were now taken and sent. The wound was debrided of non viable tissue using[Rongeurs] with removal of loose debris, as well. The wound was irrigated with [Peroxide] . The wound was now irrigated with saline and [Surgicel] placed within it, dressed with [Kerlix] and the procedure concluded.
[2019-12-09] MEDS: FENTANYL CITRATE INJ/PF 100 MCG/2 ML AMPUL ONE ×2 (15:05→15:10)
[2019-12-09] MEDS ORDERED: KETOROLAC TROMETHAMINE INJ/PF 30 MG/1 ML SDV ONE (15:21)
[2019-12-09 16:56] VITALS: BP 162/92
== END 2019-12-09 16:40 | disposition home or self-care (01) ==
LOC: OROUT 09:43
PROVIDERS: ATTEND Surgery
DX: L97.422 Non-pressure chronic ulcer of left heel and midfoot with fat layer exposed (principal); E11.621 Type 2 diabetes mellitus with foot ulcer; J44.9 Chronic obstructive pulmonary disease, unspecified; E11.9 Type 2 diabetes mellitus without complications; M06.9 Rheumatoid arthritis, unspecified; Z79.51 Long term (current) use of inhaled steroids; Z79.82 Long term (current) use of aspirin; Z79.899 Other long term (current) drug therapy; Z88.2 Allergy status to sulfonamides; Z88.8 Allergy status to other drugs, medicaments and biological substances; I25.10 Atherosclerotic heart disease of native coronary artery without angina pectoris; Z86.718 Personal history of other venous thrombosis and embolism; I25.2 Old myocardial infarction; Z86.711 Personal history of pulmonary embolism; I11.9 Hypertensive heart disease without heart failure; R01.1 Cardiac murmur, unspecified; Z85.3 Personal history of malignant neoplasm of breast; Z86.14 Personal history of Methicillin resistant Staphylococcus aureus infection
CPT/HCPCS: 11044; 36415; 87070; 87205; 87075; 87077; 80048; 87186; 01470; J2250; J0690; J3010; J3490 ×2; J1885; J2370; J2405; J2704; 1470

== ENCOUNTER 2019-12-31 06:05 | Day surgery (SDC) | payer MEDICAID ==
[2019-12-31] MEDS ORDERED: OXYCODONE HCL IR 5 MG TABLET ONE (06:28)
[2019-12-31] MEDS ORDERED: OXYCODONE HCL IR 5 MG TABLET PO ONE (06:30)
[2019-12-31 06:45] LABS: ABSOLUTE BASOPHILS # (AUTO) 0.1 10^3/uL (0.0-0.2); ABSOLUTE EOSINOPHILS # (AUTO) 0.1 10^3/uL (0.0-0.6); ABSOLUTE LYMPHOCYTES (AUTO) 2.9 10^3/uL (0.5-4.7); ABSOLUTE MONOCYTES (AUTO) 0.6 10^3/uL (0.1-1.4); ABSOLUTE NEUT (AUTO) 6.6 10^3/uL (1.7-8.2); BASOPHILS % (AUTO) 0.7 % (0-2); EOSINOPHILS % (AUTO) 1.2 % (0-6); HEMATOCRIT 39.8 % (36.0-47.0); HEMOGLOBIN 13.3 g/dL (12.0-15.5); LYMPHOCYTES % (AUTO) 28.4 % (13-45); MEAN CORPUSCULAR HEMOGLOBIN 30.2 pg (27.0-33.4); MEAN CORPUSCULAR HGB CONC 33.4 g/dL (32.0-36.0); MEAN CORPUSCULAR VOLUME 91 fl (80-97); MONOCYTES % (AUTO) 5.9 % (3-13); PLATELET COUNT 368 10^3/uL (150-450); RED CELL DISTRIBUTION WIDTH 15.5 % (11.5-14.0); SEGMENTED NEUTROPHILS % (AUTO) 63.8 % (42-78); TOTAL CELLS COUNTED % (AUTO) 100 %; WHITE BLOOD COUNT 10.3 10^3/uL (4.0-10.5)
[2019-12-31] MEDS ORDERED: PANTOPRAZOLE SODIUM 20 MG TABLET.DR PO ONE (06:45)
[2019-12-31] MEDS ORDERED: LIDOCAINE 0.5% INJ-PF (5 MG/ML) 50 ML SDV ONE ×2 (07:19→08:44)
[2019-12-31 07:24] VITALS: BP 104/80
[2019-12-31] MEDS ORDERED: DIAZEPAM 5 MG TABLET ONE (08:10)
[2019-12-31] MEDS ORDERED: BACITRACIN INJ 50,000 UNIT VIAL ONE (08:44)
[2019-12-31] MEDS ORDERED: MIDAZOLAM 2 MG/2 ML INJ ONE (08:52)
[2019-12-31] MEDS ORDERED: FENTANYL CITRATE INJ/PF 100 MCG/2 ML AMPUL ONE (08:52)
--- NOTE | 2019-12-31 10:12 | EKG REPORT ---
SEVERITY:- ABNORMAL ECG - SINUS RHYTHM LEFT BUNDLE BRANCH BLOCK : Confirmed by: Phillip Aguiar MD 31-Dec-2019 10:11:25
--- NOTE | 2019-12-31 10:22 | RADIOLOGY REPORT (SQ) ---
EXAM DESCRIPTION: PICC INSERTION COMPLETED DATE/TIME: 12/31/2019 9:57 am REASON FOR STUDY: M86.9 OSTEOMYELITIS M86.9 OSTEOMYELITIS, UNSPECIFIED COMPARISON: None. FLUOROSCOPY TIME: 2.3 minutes. 42 images saved to PACS. TECHNIQUE: Intra-operative images acquired during surgical procedure to evaluate progress. NUMBER OF IMAGES: 42 images. LIMITATIONS: None. FINDINGS: Images of the chest acquired during the procedure. IMPRESSION: IMAGE(S) OBTAINED DURING PROCEDURE. COMMENT: Quality ID [id number]: Final reports for procedures using fluoroscopy that document radiation exp osure indices, or exposure time and number of fluorographic images (if radiation exposure indices are not available) Please consult full operative report of the attending physician for description of the procedure. TECHNICAL DOCUMENTATION: JOB ID: [id number] 2010 [employer]- All Rights Reserved Reading location - IP/workstation name: [email or web address]
--- NOTE | 2019-12-31 10:49 | Discharge Summary ---
Discharge Summary (SDC) - Discharge Final Diagnosis: #1 acute on chronic osteomyelitis of left calcaneus. 2. Open wound of left heel. 3. Diabetes mellitus type 2. 4 tobacco use disorder. 5. Rheumatoid arthritis. 6. Hypertension. Date of Surgery: 12/31/19 Discharge Date: 12/31/19 Forms: ASU Anesthesia D/C Instruction, Discharge POC-Surgical Service Treatment or Instructions: WITHIN 24 HOURS: NO DRIVING, NO DRINKING ALCOHOL, NO IMPORTANT DECISION. LEAVE DRESSING IN PLACE. MAY TAKE A SHOWER BUT LEAVE DRESSING DRY AND INTACT. BLEEDING AND TEMP OF 100 DEGREES, PLEASE GO TO THE EMERGENCY DEPARTMENT. MAY RESUME MEDICATION. Follow-up in wound clinic on Monday of this week. Arrangements for antibiotics will be transmitted. Referrals: CHER ALFARO MD [Primary Care Provider] - MARII WELCH MD [ACTIVE STAFF] - Discharge Diet: Other (Comments) - Diabetic, Respiratory Treatments at Home: Deep Breathing/Coughing Discharge Activity: Activity As Tolerated Report the Following to Your Physician Immediately: Shortness of Breath, Unusual Bleeding
--- NOTE | 2019-12-31 10:54 | Operative Report ---
Operative Report DATE OF SURGERY: 12/31/19 PREOPERATIVE DIAGNOSIS: #1 acute on chronic osteomyelitis of left calcaneus. 2. Open wound of left heel. 3. Diabetes mellitus type 2. 4 tobacco use disorder. 5. Rheumatoid arthritis. 6. Hypertension. POSTOPERATIVE DIAGNOSIS: #1 acute on chronic osteomyelitis of left calcaneus. 2. Open wound of left heel. 3. Diabetes mellitus type 2. 4 tobacco use disorder. 5. Rheumatoid arthritis. 6. Hypertension. OPERATION: 1. Ultrasound evaluation of the left internal jugular vein. 2. Insertion of tunneled cuffed catheter into the left internal jugular vein. 3. Angiogram and interpretation. SURGEON: MARII HARKINS ELECTRICIAN HELPER AUTOMOTIVE: None. ANESTHESIA: Moderate Sedation TISSUE REMOVED OR ALTERED: Not applicable. COMPLICATIONS: None. ESTIMATED BLOOD LOSS: 2 mL. INTRAOPERATIVE FINDINGS: Of a satisfactory left internal jugular vein. Satisf actory access under real-time ultrasound guidance. Good position of the catheter with the tip well down in the superior vena cava. Easy egress of blood and ingress of heparinized solution. Angiograms demonstrates smooth flow of contrast through the right atrium and ventricle. Postprocedure chest x-ray demonstrates hardware in good position, no untoward findings. PROCEDURE: After obtaining informed consent, the patient was taken to the [Harness Puller] and positioned supine. The [left neck] and chest were prepared with chlorhexidine and draped out with sterile linen. After the " universal timeout", in which it was verified that the patient continued to receive antibiotic, the procedure commenced. A steriley sheathed ultrasound probe was used to evaluate the [ri ght internal jugular] vein. Local anesthesia was infiltrated adjacent to the probe. Access into the [right internal jugular] vein was obtained using a micropuncture needle, followed by micropuncture wire and then a micropuncture catheter. This was followed by introduction of a 0. 018 guidewire the tip of which was placed down into the inferior vena cava . A cuffed PICC line was now positioned over the chest and an exit site marked and locally anesthetized ,the catheter was placed between the 2 incisions. Proximally, the catheter was now positioned using a peel-away sheath, after dilation. Easy ingress of heparinized solution and egress of blood obtained through both ports. A completion angiogram was done by injecting contrast. The findings were as dictated. The neck incision was now closed using interrupted 3-0 PDS to the subcutaneous tissues, the catheter was anchored at the exit site using 3-0 PDS. A Biopatch device was now placed adjacent to the catheter. Dressings were applied and the procedure concluded. Exposure time: [2.3 minutes]. Exposure: 27.73 Marbella briceño Contrast amount: 15 mill of [id number] low osmolality. Copies of the dictated operative report for Dr. Marii Bennett MD.concluded. Copies of the dictated operative report for Dr. Marii Bennett MD.
== END 2019-12-31 10:40 | disposition home or self-care (01) ==
LOC: CCL 06:05
PROVIDERS: ATTEND Surgery
DX: M86.172 Other acute osteomyelitis, left ankle and foot (principal); M86.672 Other chronic osteomyelitis, left ankle and foot; E11.9 Type 2 diabetes mellitus without complications; I10 Essential (primary) hypertension; J44.9 Chronic obstructive pulmonary disease, unspecified; Z90.81 Acquired absence of spleen; Z85.3 Personal history of malignant neoplasm of breast; Z86.73 Personal history of transient ischemic attack (TIA), and cerebral infarction without residual deficits; M06.9 Rheumatoid arthritis, unspecified
CPT/HCPCS: 36415; 85025; 36569; 76937; 77001; 93005; 93010; C1752; Q9967; C1769; J2250; J3490 ×4; J3010; J1644

== ENCOUNTER → 2020-01-16 | Outpatient (CLI) | payer MEDICAID ==
--- NOTE | 2020-01-16 17:36 | RADIOLOGY REPORT (SQ) ---
EXAM DESCRIPTION: CHEST PA/LATERAL COMPLETED DATE/TIME: 01/16/2020 4:07 pm REASON FOR STUDY: PNEUMOTHORAX, UNSPECIFIED COMPARISON: Thick 14 19 EXAM PARAMETERS: NUMBER OF VIEWS: two views TECHNIQUE: Digital Frontal and Lateral radiographic views of the chest acquired. RADIATION DOSE: NA LIMITATIONS: none FINDINGS: LUNGS AND PLEURA: Hyperexpansion of the lungs. No pneumothorax is seen. MEDIASTINUM AND HILAR STRUCTURES: No masses or contour abnormalities. HEART AND VASCULAR STRUCTURES: Heart normal size. No evidence for failure. BONES: No acute findings. HARDWARE: There is left-sided catheter with its tip in the superior vena cava. OTHER: No other significant finding. IMPRESSION: Chronic lung changes with no acute cardiopulmonary finding. No pneumothorax is apprecia sean. TECHNICAL DOCUMENTATION: JOB ID: [id number] 2010 [employer]- All Rights Reserved Reading location - IP/workstation name: [email or web address]
== END ==
LOC: OD 14:31
PROVIDERS: ATTEND Surgery
DX: J93.9 Pneumothorax, unspecified (principal)
CPT/HCPCS: 71046

== ENCOUNTER → 2020-02-05 | Outpatient (CLI) | payer MEDICAID ==
--- NOTE | 2020-02-05 15:55 | RADIOLOGY REPORT (SQ) ---
EXAM DESCRIPTION: FOOT LEFT COMPLETE COMPLETED DATE/TIME: 02/05/2020 3:36 pm REASON FOR STUDY: NON-PRS CHRONIC ULCER OF LEFT HEEL AND MIDFOOT W NECROS BONE E11.621 TYPE 2 DIABE PORTIA MELLITUS WITH FOOT ULCER L97.424 NON-PRS CHRONIC ULCER OF LEFT HEEL AND MIDFOOT W NEC COMPARISON: Left foot films 05/04/2018, 04/15/2016, 07/23/2014 NUMBER OF VIEWS: Three views. TECHNIQUE: AP, lateral and oblique radiographic images acquired of the left foot. LIMITATIONS: None. FINDINGS: MINERALIZATION: Normal. BONES: No acute fracture or dislocation. Old sclerotic bony remodeling along the plantar aspect, lef t calcaneus, similar compared 2018.Old avascular necrosis second metatarsal head. JOINTS: Osteoarthritis, second MTP joint. SOFT TISSUES: Plantar calcaneal ulcer or about 2.5 cm diameter. This is superficial to the old heale d osteomyelitis, plantar aspect of the calcaneus OTHER: No other significant finding. IMPRESSION: PLANTAR CALCANEAL ULCER WITH CHRONIC APPEARING CALCANEAL BONY REMODELING FROM OLD OSTEOM SHALONDA TECHNICAL DOCUMENTATION: JOB ID: [id number] 2010 [employer]- All Rights Reserved Reading location - IP/workstation name: [email or web address]
== END ==
LOC: WC 15:06
PROVIDERS: ATTEND Nurse Practitioner Family
DX: E11.621 Type 2 diabetes mellitus with foot ulcer (principal); L97.424 Non-pressure chronic ulcer of left heel and midfoot with necrosis of bone; M19.072 Primary osteoarthritis, left ankle and foot

== ENCOUNTER → 2020-03-05 | Outpatient (CLI) | payer MEDICARE, MEDICAID ==
[2020-03-05 09:46] LABS: ABSOLUTE LYMPHOCYTES (AUTO) 2.3 10^3/uL (0.5-4.7); ABSOLUTE MONOCYTES (AUTO) 0.5 10^3/uL (0.1-1.4); ABSOLUTE NEUT (AUTO) 4.7 10^3/uL (1.7-8.2); BASOPHILS % (AUTO) 0.6 % (0-2); EOSINOPHILS % (AUTO) 0.3 % (0-6); HEMATOCRIT 34.7 % (36.0-47.0); HEMOGLOBIN 11.9 g/dL (12.0-15.5); MEAN CORPUSCULAR HEMOGLOBIN 31.1 pg (27.0-33.4); MEAN CORPUSCULAR HGB CONC 34.4 g/dL (32.0-36.0); MEAN CORPUSCULAR VOLUME 90 fl (80-97); RED BLOOD COUNT 3.84 10^6/uL (3.72-5.28); SEGMENTED NEUTROPHILS % (AUTO) 62.1 % (42-78); TOTAL CELLS COUNTED % (AUTO) 100 %; WHITE BLOOD COUNT 7.5 10^3/uL (4.0-10.5)
[2020-03-05 10:13] LABS: ALBUMIN 3.8 g/dL (3.5-5.0); ALKALINE PHOSPHATASE 83 U/L (38-126); ANION GAP 9 (5-19); ASPARTATE AMINO TRANSFERASE 17 U/L (14-36); BILIRUBIN,TOTAL 0.3 mg/dL (0.2-1.3); BLOOD UREA NITROGEN 22 mg/dL (7-20); C-REACTIVE PROTEIN 32.9 mg/L (<10.0); CALCIUM 8.8 mg/dL (8.4-10.2); CARBON DIOXIDE 28 mmol/L (22-30); CHLORIDE 100 mmol/L (98-107); GLUCOSE 82 mg/dL (75-110); POTASSIUM 4.9 mmol/L (3.6-5.0)
[2020-03-05 10:25] LABS: PLATELET COUNT 369 10^3/uL (150-450)
[2020-03-05 10:41] LABS: ERYTHROCYTE SEDIMENTATION RATE 79 mm/hr (0-30)
--- NOTE | 2020-03-05 11:32 | RADIOLOGY REPORT (SQ) ---
EXAM DESCRIPTION: OS CALCIS/HEEL LEFT IMAGES COMPLETED DATE/TIME: 03/05/2020 9:55 am REASON FOR STUDY: NON-PRS CHR ULCER OF LEFT HEEL AND MIDFOOT W FAT LAYER EXPOS L97.422 NON-PRS CHR ULCER OF LEFT HEEL AND MIDFOOT W FAT LAY E11.621 TYPE 2 DIABETES MELLITUS WITH FOOT ULCER COMPARISON: 02/05/2020 NUMBER OF VIEWS: Two views. TECHNIQUE: Plantar and oblique radiographic images acquired of the left calcaneous. LIMITATIONS: None. FINDINGS: Sclerosis and remodeling of the posterior plantar aspect of the calcaneus consistent with chronic osteomyelitis not significantly changed. No evidence of acute osteomyelitis. Adjacent skin ulcer without evidence of foreign body. IMPRESSION: No evidence of acute osteomyelitis. TECHNICAL DOCUMENTATION: JOB ID: [id number] 2010 [employer]- All Rights Reserved Reading location - IP/workstation name: [email or web address]
== END ==
LOC: WC 09:13
PROVIDERS: ATTEND Preventive Medicine Undersea and Hyperbaric Medicine
DX: E11.621 Type 2 diabetes mellitus with foot ulcer (principal); L97.422 Non-pressure chronic ulcer of left heel and midfoot with fat layer exposed
CPT/HCPCS: 36415; 80053; 83036; 85025; 85652; 86140

== ENCOUNTER 2020-03-18 17:38 | Emergency (ER) | payer MEDICARE, MEDICAID ==
[2020-03-18 18:18] VITALS: BP 128/83
--- NOTE | 2020-03-18 18:27 | ER Document Report ---
ED General - General Chief Complaint: Flu Symptoms Stated Complaint: FLU SYMTOMS Time Seen by Provider: 03/18/20 17:44 [facility] [Provider [facility] - Follow up tomorrow TIA FRANZ MD [ACTIVE STAFF] - Follow up as needed GRACE FAYE MD [ACTIVE STAFF] - Follow up as needed CHEYENNE TRINH MD [EMERITUS] - Follow up as needed Mode of Arrival: Ambulatory Information source: Patient Notes: 59-year-old female with history of cardiac disease, CHF, LBBB, diabetes COPD and breast cancer presents to the emergency department with complaints of shortness of breath and chest pain with fever for the last couple weeks. She reports two weeks ago she was placed on antibiotics by her primary care provider. She reports she took 2 different antibiotics. She reports last week she had a temperature of 103.2 before the antibiotics. Today her temperature was 100.5. She reports she had shortness of breath 2 weeks ago and then 1 week ago she started having chest pain on and off. Denies nausea or diaphoresis. She describes the chest pain as heavy with occasional sharp pains. She reports she has been coughing mostly in the morning and producing [place] phlegm. She reports she is having trouble laying down. Reports she is on home oxygen. She reports she was told to use that only at night or when she is short of breath. She reports she is been using it recently because she is short of breath. Denies vomiting diarrhea. Recently quit smoking and vaping. Patient reports she has been exposed to the COVID via her home health nurse whose son was positive for COVID. Patient has a home health nurse because she has a wound on her left foot. She reports she has had it for a while. She is scheduled for wound care on . TRAVEL OUTSIDE OF THE [place] IN LAST 30 DAYS: No - HPI Patient complains to provider of: sob/cp Onset: Other - 2 weeks Quality of pain: Pressure, Sharp Associated symptoms: Chest pain, Productive cough, Fever, Shortness of breath Exacerbated by: Supine Relieved by: Denies Similar symptoms previously: Yes Recently seen / treated by doctor: Yes - Related Data Allergies/Adverse Reactions: Paclitaxel,Semi-Synthetic [From Taxol] Allergy (Severe, Verified 12/09/19 12:28) Fever, rash, eyes swell Sulfa (Sulfonamide Antibiotics) Allergy (Severe, Verified 12/09/19 12:28) sulfasalazine [From Azulfidine] Allergy (Severe, Verified 12/09/19 12:28) Fever, rash, swelling cephalexin Allergy (Verified 12/09/19 12:28) clindamycin Allergy (Verified 12/09/19 12:28) multiple antibiotics Allergy (Severe, Uncoded 12/09/19 12:28) n and v, itching, swelling Past Medical History - General Information source: Patient - Social History Smoking Status: Former Smoker - recently quit smoking and vaping Frequency of alcohol use: None Drug Abuse: None Lives with: Alone Family History: Malignancy, Other Patient has homicidal ideation: No - Past Medical History Cardiac Medical History: Reports: Hx Congestive Heart Failure, Hx Coronary Artery Disease, Hx DVT, Hx Heart Attack - 1993,"silent [place]", Hx Hypercholesterolemia, Hx Hypertension - on meds, Hx Pulmonary Embolism, Hx Heart Murmur Pulmonary Medical History: Reports: Hx Asthma, Hx COPD, Hx Pneumonia Denies: Hx Bronchitis Neurological Medical History: Reports: Hx Cerebrovascular Accident - "mild stroke" X2. Denies: Hx Seizures Endocrine Medical History: Reports: Hx Diabetes Mellitus Type 2 - diet controlled. Denies: Hx Diabetes Mellitus Type 1, Hx Hyperthyroidism, Hx Hypothyroidism Renal/ Medical History: Denies: Hx Peritoneal Dialysis Malignancy Medical History: Reports: Hx Breast Cancer - Status post right mastectomy GI Medical History: Reports: Hx Gastroesophageal Reflux Disease. Denies: Hx Cirrhosis, Hx Hepatitis Musculoskeletal Medical History: Reports Hx Arthritis - rheumatoid, Denies Hx Gout Skin Medical History: Denies Hx Eczema, Denies Hx Psoriasis Psychiatric Medical History: Denies: Hx Dementia Infectious Medical History: Reports: Hx MRSA. Denies: Hx Hepatitis Past Surgical History: Reports: Hx Breast Surgery, Hx Mastectomy - right, 2004, Hx Tonsillectomy, Hx Tubal Ligation - Immunizations Hx Diphtheria, Pertussis, Tetanus Vaccination: Yes Hx Pneumococcal Vaccination: 08/20/09 Review of Systems - Review of Systems Notes: Review HPI for review of systems., All other systems negative Physical Exam - Vital signs Vitals: Temp Pulse Resp BP Pulse Ox 98.0 F 103 H 18 128/83 H 94 03/18/20 17:55 03/18/20 17:55 03/18/20 17:55 03/18/20 17:55 03/18/20 17:55 - General General appearance: Alert In distress: None - HEENT Head: Normocephalic, Atraumatic Eyes: Normal Conjunctiva: Normal Extraocular movements intact: Yes Ears: Normal External canal: Normal Tympanic membrane: Normal Pharynx: Normal. No: Erythema Neck: Normal, Supple. No: Lymphadenopathy - Respiratory Respiratory status: No respiratory distress Chest status: Nontender Breath sounds: Decreased air movement Chest palpation: Normal - Cardiovascular Rhythm: Regular Heart sounds: Normal auscultation - Abdominal Inspection: Normal Distension: No distension Bowel sounds: Normal Tenderness: Nontender Organomegaly: No organomegaly - Back Back: Normal. No: CVA tenderness, Vertebra tenderness - Extremities General upper extremity: Normal ROM, Normal strength General lower extremity: Normal ROM Foot: Other - left foot wrapped and in boot - Neurological Neuro grossly intact: Yes Cognition: Normal Orientation: AAOx4 [place] Coma Scale Eye Opening: Spontaneous [place] Coma Scale Verbal: Oriented [place] Coma Scale Motor: Obeys Commands [place] Coma Scale Total: 15 Speech: Normal - Psychological Associated symptoms: Normal affect, Normal mood - Skin Skin Temperature: Warm Skin Moisture: Dry Skin Color: Normal Course - Re-evaluation Re-evalutation: 03/18/20 18:29 59-year-old female presents with productive cough shortness of breath chest pain fever for the past 2 weeks. Reports the first week she had shortness of breath second week she started having chest pain. Patient does have a very long history to include breast cancer [place] CHF diabetes COPD. Patient reports she quit smoking several months ago. She smells strongly of cigarettes. She reports her girlfriend smokes and also she has not washed some of her clothes since she quit smoking, so that is why she smells of cigarettes. She also has a wound to her left foot which is in a dressing in a boot. She reports she has had it for a while. She reports she is under the care of a wound care provider. She is scheduled for wound care tomorrow. She reports she has a home health nurse who has a son that was positive for the COVID. Labs EKG chest x-ray flu strep COVID ordered. 03/18/20 20:29 I was notified by the nurse that patient would would like to leave AMA. I did go and talk to patient. She reports she is tired she is uncomfortable in the stretcher. She was irritated because the first EKG that was completed listed her as a pediatric patient and they wanted to repeat it. The nurses have had difficulty obtaining labs for her and she has been stuck several times. Patient reports she came here because her doctor told to come here she reports they have done the test that he requested chest x-ray flu test. She reports all the other tests are not needed. I discussed with her that she complained of chest pain and she is very high risk of having a heart attack due to her history. This is why we are doing labs and checking her cardiac enzyme. I apologized for the inconvenience and her weight. Patient reports that she really believes it is j ust anxiety and she would like to go home. I discussed with her the possibility that she may go home and because she may be having a heart attack which is uncertain because we had not complete her testing. She reports she still wants to go home. She was instructed on Covid quarantine. The patient has decided not to proceed with further recommended testing or treatment to determine the cause of their symptoms. The risks and alternatives to the recommendations were discussed and the patient was understanding. The patient appears clinically to have the capacity to make this decision. Patient was instructed that he/she could return to the emergency department at any time to complete the testing treatment. - Vital Signs Vital signs: Temp Pulse Resp BP Pulse Ox 98.0 F 103 H 18 128/83 H 94 03/18/20 17:55 03/18/20 17:55 03/18/20 17:55 03/18/20 17:55 03/18/20 17:55 - Diagnostic Test Radiology reviewed: Image reviewed, Reports reviewed - EKG Interpretation by Dc EKG shows normal: Sinus rhythm Rate: Normal [place]/QRS: LBBB When compared to previous EKG there are: No significant change Additional EKG results interpreted by me: 03/18/20 20:[address] elevation or T wave inversion QTC 493 Discharge - Discharge Clinical Impression: Shortness of breath Chest pain Qualifiers: Chest pain type: unspecified Qualified Code(s): R07.9 - Chest pain, unspecified Condition: Stable Disposition: AGAINST MEDICAL ADVICE Instructions: Chest Pain of Unclear Cause ([facility]) Additional Instructions: *You have been evaluated for chest pain, shortness of breath *Your flu and strep test are negative. Your chest x-ray was negative for pneumonia *Your COVID testing is pending you are required to quarantine yourself for the next 14 days or until you receive a response from the health department notifying you that you do not have the coronavirus. *You have decided to leave AGAINST MEDICAL ADVICE, prior to the results of your testing. You may be having a heart attack. This is unclear because your testing is not complete. *Monitor your symptoms. Call 911 for increasing shortness of breath or chest pain *Follow up with a primary care provider tomorrow for recheck and referral to jewelry designer *Return to emergency department immediately for worsening symptoms increasing chest pain, worsening shortness of breath, concerns As a person under investigation for Covid 19, the [place] department of Health and Human Services, division of public health advises you to adhere to the following guidance until your test results are reported to you. If your test result is positive, you will receive additional information from your provider and your local health department at that time. Remain at home until you are cleared by the health provider or public health authorities. Keep a log of visitors to your home, notify any visitors to your home of your isolation status. If you plan to move to a new address or leave the county, notify the local health department in your County. Call your doctor or seek care if you have an urgent medical need. Before seeking medical care, call ahead to get instructions from the provider before arriving at the medical office clinic or hospital. Notify them that you are being tested for the virus that causes Covid 19 so that arrangements can be made, as necessary, to prevent transmission to others in the healthcare setting. Next, notify the local health department in your county. If a medical emergency arises and you need to call 911, inform dispatch and the first responders that you are being tested for the virus that causes Covid 19. Next, notify the local health department in your county. Guidance for worsening S/SX: For worsening symptoms, patient has been advised to contact their Primary Care Provider, or go to the nearest Emergency Department. Referrals: TIA FRANZ MD [ACTIVE STAFF] - Follow up as needed GRACE FAYE MD [ACTIVE STAFF] - Follow up as needed CHEYENNE TRINH MD [EMERITUS] - Follow up as needed [facility] - Follow up tomorrow
--- NOTE | 2020-03-18 18:57 | RADIOLOGY REPORT (SQ) ---
EXAM DESCRIPTION: CHEST SINGLE VIEW IMAGES COMPLETED DATE/TIME: 03/18/2020 5:31 pm REASON FOR STUDY: sob cp COMPARISON: 01/16/2020 EXAM PARAMETERS: NUMBER OF VIEWS: One view. TECHNIQUE: Single frontal radiographic view of the chest acquired. RADIATION DOSE: NA LIMITATIONS: None. FINDINGS: LUNGS AND PLEURA: The lungs are hyperinflated. No focal consolidation or pleural effusion . No pneumothorax. MEDIASTINUM AND HILAR STRUCTURES: No masses. Contour normal. HEART AND VASCULAR STRUCTURES: Heart normal in size. Normal vasculature. BONES: No acute findings. HARDWARE: None in the chest. OTHER: No other significant finding. IMPRESSION: NO ACUTE RADIOGRAPHIC FINDING IN THE CHEST. TECHNICAL DOCUMENTATION: JOB ID: [id number] 2010 [employer]- All Rights Reserved Reading location - IP/workstation name: [id number]
[2020-03-18 20:06] LABS: A TYPE INFLUENZA AG NEGATIVE (NEGATIVE); B INFLUENZA AG NEGATIVE (NEGATIVE)
--- NOTE | 2020-03-19 18:27 | EKG REPORT ---
SEVERITY:- ABNORMAL ECG - SINUS RHYTHM PROBABLE LEFT ATRIAL ABNORMALITY LEFT BUNDLE BRANCH BLOCK : Confirmed by: Tanesha Mcclelland MD 19-Mar-2020 18:26:27
== END 2020-03-18 20:40 | disposition left against medical advice (07) ==
LOC: ER 17:38
DX: R06.02 Shortness of breath (principal); R07.9 Chest pain, unspecified; R50.9 Fever, unspecified; Z20.828 Contact with and (suspected) exposure to other viral communicable diseases; E11.9 Type 2 diabetes mellitus without complications; J44.9 Chronic obstructive pulmonary disease, unspecified; I50.9 Heart failure, unspecified; I11.0 Hypertensive heart disease with heart failure; E78.00 Pure hypercholesterolemia, unspecified; Z85.3 Personal history of malignant neoplasm of breast; Z86.73 Personal history of transient ischemic attack (TIA), and cerebral infarction without residual deficits; Z86.14 Personal history of Methicillin resistant Staphylococcus aureus infection; Z88.2 Allergy status to sulfonamides
CPT/HCPCS: 93005; 99285; 87070; 87880; 87804; 71045; 93010; U0003; 87635

== ENCOUNTER 2020-04-27 09:59 | Emergency (ER) | payer MEDICARE, MEDICAID ==
--- NOTE | 2020-04-27 10:32 | ER Document Report ---
ED Medical Screen (RME) - General Chief Complaint: Abnormal Lab Results Stated Complaint: ABNORMAL LABS Time Seen by Provider: 04/27/20 10:24 Primary Care Provider: CHER ALFARO MD [Primary Care Provider] - Follow up as needed Mode of Arrival: Wheelchair Information source: Patient Notes: 59-year-old female presents to ED for multiple complaints. She states she has a history of blood clots in both lungs. She states she went to her doctor and he sent her to the emergency room to get a d-dimer. She states she also has left bundle branch block and chest pain with pain to the left ribs. She states she has pain all over. She states she has 3+ edema in both legs and the left hand. 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 She states she just started smoking 5 cigarettes a day. She states when she was she flatlined from her ruptured spleen and has had problems with her heart since then. She is alert, oriented respirations regular nonlabored, very verbal. I have greeted and performed a rapid initial assessment of this patient. A comprehensive ED assessment and evaluation of the patient, analysis of test results and completion of medical decision making process will be conducted by an additional ED providers. TRAVEL OUTSIDE OF THE [place] IN LAST 30 DAYS: No - Related Data Allergies/Adverse Reactions: Paclitaxel,Semi-Synthetic [From Taxol] Allergy (Severe, Verified 12/09/19 12:28) Fever, rash, eyes swell Sulfa (Sulfonamide Antibiotics) Allergy (Severe, Verified 12/09/19 12:28) sulfasalazine [From Azulfidine] Allergy (Severe, Verified 12/09/19 12:28) Fever, rash, swelling cephalexin Allergy (Verified 12/09/19 12:28) clindamycin Allergy (Verified 12/09/19 12:28) multiple antibiotics Allergy (Severe, Uncoded 12/09/19 12:28) n and v, itching, swelling Past Medical History - Past Medical History Cardiac Medical History: Reports: Hx Congestive Heart Failure, Hx Coronary Artery Disease, Hx DVT, Hx Heart Attack - 1993,"silent [place]", Hx Hypercholesterolemia, Hx Hypertension - on meds, Hx Pulmonary Embolism, Hx Heart Murmur Pulmonary Medical History: Reports: Hx Asthma, Hx COPD, Hx Pneumonia Denies: Hx Bronchitis Neurological Medical History: Reports: Hx Cerebrovascular Accident - "mild stroke" X2. Denies: Hx Seizures Endocrine Medical History: Reports: Hx Diabetes Mellitus Type 2 - diet controlled. Denies: Hx Diabetes Mellitus Type 1, Hx Hyperthyroidism, Hx Hypothyroidism Renal/ Medical History: Denies: Hx Peritoneal Dialysis Malignancy Medical History: Reports: Hx Breast Cancer - Status post right mastectomy GI Medical History: Reports: Hx Gastroesophageal Reflux Disease. Denies: Hx Cirrhosis, Hx Hepatitis Musculoskeltal Medical History: Reports Hx Arthritis - rheumatoid, Denies Hx Gout Skin Medical History: Denies Hx Eczema, Denies Hx Psoriasis Psychiatric Medical History: Denies: Hx Dementia Infectious Medical History: Reports: Hx MRSA. Denies: Hx Hepatitis Past Surgical History: Reports: Hx Breast Surgery, Hx Mastectomy - right, 2005, Hx Tonsillectomy, Hx Tubal Ligation - Immunizations Hx Diphtheria, Pertussis, Tetanus Vaccination: Yes Physical Exam - Vital signs Vitals: Temp Pulse Resp BP Pulse Ox 98.3 F 107 H 24 H 108/57 L 92 04/27/20 10:08 04/27/20 10:08 04/27/20 10:08 04/27/20 10:08 04/27/20 10:08 Course - Vital Signs Vital signs: Temp Pulse Resp BP Pulse Ox 98.3 F 107 H 24 H 108/57 L 92 04/27/20 10:08 04/27/20 10:08 04/27/20 10:08 04/27/20 10:08 04/27/20 10:08 Doctor's Discharge - Discharge Referrals: CHER ALFARO MD [Primary Care Provider] - Follow up as needed
--- NOTE | 2020-04-27 11:08 | ER Document Report ---
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 She says that is been going on for several weeks but she also hurt her left leg and has rheumatoid arthritis on that side. She has no fever or chills she was on antibiotics and steroids for last couple of weeks after a negative cover test presumably for bronchitis. She has no increase in shortness of breath but has mild intermittent chest pain. Her doctor for some reason checked a d-dimer and sent her here because it was elevated. TRAVEL OUTSIDE OF THE [place] IN LAST 30 DAYS: No - Related Data Allergies/Adverse Reactions: Paclitaxel,Semi-Synthetic [From Taxol] Allergy (Severe, Verified 04/27/20 10:32) Fever, rash, eyes swell Sulfa (Sulfonamide Antibiotics) Allergy (Severe, Verified 04/27/20 10:32) sulfasalazine [From Azulfidine] Allergy (Severe, Verified 04/27/20 10:32) Fever, rash, swelling cephalexin Allergy (Verified 04/27/20 10:32) clindamycin Allergy (Verified 04/27/20 10:32) multiple antibiotics Allergy (Severe, Uncoded 04/27/20 10:32) n and v, itching, swelling Past Medical History - General Information source: Patient - Social History Smoking Status: Current Every Day Smoker Chew tobacco use (# tins/day): No Smoking Education Provided: Yes - The patient ED visit today was directly related to their abuse of tobacco. Frequency of alcohol use: None Drug Abuse: None Family History: Malignancy, Other Patient has homicidal ideation: No - Past Medical History Cardiac Medical History: Reports: Hx Congestive Heart Failure, Hx Coronary Artery Disease, Hx DVT, Hx Heart Attack - 1993,"[place]ent [place]", Hx Hypercholesterolemia, Hx Hypertension - on meds, Hx Pulmonary Embolism, Hx Heart Murmur Pulmonary Medical History: Reports: Hx Asthma, Hx COPD, Hx Pneumonia Denies: Hx Bronchitis Neurological Medical History: Reports: Hx Cerebrovascular Accident - "mild stroke" X2. Denies: Hx Seizures Endocrine Medical History: Reports: Hx Diabetes Mellitus Type 2 - diet controlled. Denies: Hx Diabetes Mellitus Type 1, Hx Hyperthyroidism, Hx Hypothyroidism Renal/ Medical History: Denies: Hx Peritoneal Dialysis Malignancy Medical History: Reports: Hx Breast Cancer - Status post right mastectomy GI Medical History: Reports: Hx Gastroesophageal Reflux Disease. Denies: Hx Cirrhosis, Hx Hepatitis Musculoskeletal Medical History: Reports Hx Arthritis - rheumatoid, Denies Hx Gout Skin Medical History: Denies Hx Eczema, Denies Hx Psoriasis Psychiatric Medical History: Denies: Hx Dementia Infectious Medical History: Reports: Hx MRSA. Denies: Hx Hepatitis Past Surgical History: Reports: Hx Breast Surgery, Hx Mastectomy - right, 2005, Hx Tonsillectomy, Hx Tubal Ligation - Immunizations Hx Diphtheria, Pertussis, Tetanus Vaccination: Yes Hx Pneumococcal Vaccination: 08/20/09 Review of Systems - Review of Systems Notes: REVIEW OF SYSTEMS GEN: Denies fever, chills, weight loss ENT: Denies sore throat, nasal discharge, ear pain EYES: Denies blurry vision, eye pain, discharge CV: Intermittent bilateral chest wall pain RESP: Shortness of breath cough wheezing GI: Denies abdominal pain, nausea, vomiting, diarrhea MSK: Joint pain chronic edema left greater than right, SKIN: Denies rash, skin lesions LYMPH: Denies swollen glands/lymph nodes NEURO: Denies headache, focal weakness or numbness, dizziness PSYCH: Denies depression, suicidal or homicidal ideation PHYSICAL EXAMINATION General: No acute distress, well-nourished Head: Atraumatic, normocephalic ENT: Mouth normal, oropharynx moist, no exudates or tonsillar enlargement Eyes: Conjunctiva normal, pupils equal, lids normal Neck: No JVD, supple, no guarding CVS: Normal rate, regular rhythm, no murmurs Resp: No resp distress, equal and normal breath sounds bilaterally GI: Nondistended, soft, no tenderness to palpation, no rebound or guarding Ext: Trace asymmetric 2+ edema left greater than right leg Back: No CVA or midline TTP Skin: No rash, warm Lymphatic: No lymphadeopathy noted Neuro: Awake, alert. Face symmetric. GCS 15. Physical Exam - Vital signs Vitals: Temp Pulse Resp BP Pulse Ox 98.3 F 107 H 24 H 108/57 L 92 04/27/20 10:08 04/27/20 10:08 04/27/20 10:08 04/27/20 10:08 04/27/20 10:08 Course - Re-evaluation Re-evalutation: 04/27/20 18:59 Patient presents with cough shortness of breath and asymmetric leg swelling lifetime Eliquis for bilateral PEs in the past Likely secondary to COPD and stopping steroids EKG shows signs of massive PE, troponin is negative. BNP is not significantly elevated and chest x-ray appears clear Long discussion with patient. She also has some mild hyponatremia which is chronic and has touch of acute kidney injury. Discussed admission with hospitalist, Dr. Moreland who says that she can probably go home with fluids. I do not feel strongly that she be admitted and she does not want to be admitted. We will continue anticoagulation and ask her to follow-up with primary. 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 I have discussed with the patient there likely diagnosis, aftercare plan, follow- up plans and my usual and customary return precautions. They verbalized understanding of this. - Vital Signs Vital signs: Temp Pulse Resp BP Pulse Ox 98.3 F 107 H 16 113/67 95 04/27/20 10:25 04/27/20 10:08 04/27/20 12:08 04/27/20 12:08 04/27/20 12:08 - Laboratory Result Diagrams: 04/27/20 11:20 04/27/20 11:20 Laboratory results interpreted by me: 04/27/20 04/27/20 04/27/20 11:20 11:20 11:20 WBC 13.3 H Hgb 11.7 L Hct 34.6 L RDW 15.9 H Hancock % (Auto) 1.1 L Absolute Neuts (auto) 11.1 H Seg Neutrophils % 83.3 H Sodium 131.6 L BUN 43 H Creatinine 1.90 H Est GFR ( Amer) 33 L Est GFR (MDRD) Non-Af 27 L Glucose 116 H NT-Pro-B Natriuret Pep 622 H Urine Blood 04/27/20 11:20 WBC Hgb Hct RDW Hancock % (Auto) Absolute Neuts (auto) Seg Neutrophils % Sodium BUN Creatinine Est GFR ( Amer) Est GFR (MDRD) Non-Af Glucose NT-Pro-B Natriuret Pep Urine Blood SMALL H - Diagnostic Test Radiology reviewed: Image reviewed, Reports reviewed Discharge - Discharge Clinical Impression: Leg edema Condition: Good Disposition: HOME, SELF-CARE Instructions: Dependent Edema ([facility]) Additional Instructions: No acute cause was found for her leg swelling. You already on blood thinner and recently completed medicines for COPD. Please follow-up with your regular doctor, maintain good hydration and take all the medicines you are supposed be taking. Referrals: CHER ALFARO MD [Primary Care Provider] - Follow up as needed
[2020-04-27 11:33] LABS: ABSOLUTE BASOPHILS # (AUTO) 0.1 10^3/uL (0.0-0.2); ABSOLUTE MONOCYTES (AUTO) 0.2 10^3/uL (0.1-1.4); ABSOLUTE NEUT (AUTO) 11.1 10^3/uL (1.7-8.2); BASOPHILS % (AUTO) 0.7 % (0-2); EOSINOPHILS % (AUTO) 0.3 % (0-6); HEMATOCRIT 34.6 % (36.0-47.0); HEMOGLOBIN 11.7 g/dL (12.0-15.5); LYMPHOCYTES % (AUTO) 14.6 % (13-45); MEAN CORPUSCULAR HEMOGLOBIN 30.4 pg (27.0-33.4); MEAN CORPUSCULAR HGB CONC 33.9 g/dL (32.0-36.0); MEAN CORPUSCULAR VOLUME 90 fl (80-97); MONOCYTES % (AUTO) 1.1 % (3-13); PLATELET COUNT 315 10^3/uL (150-450); RED BLOOD COUNT 3.85 10^6/uL (3.72-5.28); RED CELL DISTRIBUTION WIDTH 15.9 % (11.5-14.0); SEGMENTED NEUTROPHILS % (AUTO) 83.3 % (42-78); TOTAL CELLS COUNTED % (AUTO) 100 %; WHITE BLOOD COUNT 13.3 10^3/uL (4.0-10.5)
[2020-04-27 11:39] LABS: INTERNATIONAL RATION (INR) 1.08; PARTIAL THROMBOPLASTIN TIME 34.2 SEC (23.5-35.8)
[2020-04-27 11:59] LABS: APPEARANCE,URINE CLEAR; BILIRUBIN,URINE NEGATIVE (NEGATIVE); COLOR,URINE YELLOW; GLUCOSE, URINE NEGATIVE (NEGATIVE); KETONES,URINE NEGATIVE (NEGATIVE); PROTEIN,URINE NEGATIVE (NEGATIVE); URINE SPECIFIC GRAVITY 1.012; UROBILINOGEN,URINE NEGATIVE mg/dL (<2.0)
[2020-04-27 12:06] LABS: ALBUMIN 3.6 g/dL (3.5-5.0); ALKALINE PHOSPHATASE 72 U/L (38-126); ANION GAP 9 (5-19); ASPARTATE AMINO TRANSFERASE 24 U/L (14-36); BILIRUBIN,TOTAL 0.5 mg/dL (0.2-1.3); BLOOD UREA NITROGEN 43 mg/dL (7-20); CARBON DIOXIDE 22 mmol/L (22-30); CHLORIDE 101 mmol/L (98-107); GLUCOSE 116 mg/dL (75-110); TOTAL PROTEIN 7.2 g/dL (6.3-8.2)
[2020-04-27 12:12] VITALS: BP 113/67
[2020-04-27 12:17] LABS: NT PRO BNP 622 pg/mL (<125)
[2020-04-27 12:22] LABS: TROPONIN I < 0.012 ng/mL
--- NOTE | 2020-04-27 12:42 | RADIOLOGY REPORT (SQ) ---
EXAM DESCRIPTION: CHEST SINGLE VIEW IMAGES COMPLETED DATE/TIME: 04/27/2020 12:28 pm REASON FOR STUDY: Left rib and chest pain COMPARISON: AP view of the chest from 03/18/2020. EXAM PARAMETERS: NUMBER OF VIEWS: One view. TECHNIQUE: An AP view of the chest was obtained. RADIATION DOSE: NA LIMITATIONS: None. FINDINGS: LUNGS AND PLEURA: Peripheral interstitial opacities in the lower lobes that could be chron ic. There is no acute consolidation, sizeable pleural effusion or pneumothorax. MEDIASTINUM AND HILAR STRUCTURES: No mediastinal or hilar contour abnormality. HEART AND VASCULAR STRUCTURES: The cardiac silhouette is within normal limits. BONES: No acute findings. HARDWARE: None in the chest. OTHER: No other finding. IMPRESSION: Peripheral interstitial opacities in the lower lobes that could be chronic. There is no acute consolidation, sizeable pleural effusion or pneumothorax. TECHNICAL DOCUMENTATION: JOB ID: [id number] 2010 [email or web address]- All Rights Reserved Reading location - IP/workstation name: [email or web address]
[2020-04-27] MEDS ORDERED: NORMAL SALINE 500 ML IV ONE (12:56)
[2020-04-27] MEDS ORDERED: IPRATROPIUM/ALBUTEROL 0.5-2.5 MG/3 ML AMPUL NEB ONE (12:56)
--- NOTE | 2020-04-27 15:01 | EKG REPORT ---
SEVERITY:- ABNORMAL ECG - SINUS RHYTHM LEFT BUNDLE BRANCH BLOCK : Confirmed by: Tanesha Mcclelland MD 27-Apr-2020 14:59:44
== END 2020-04-27 13:29 | disposition home or self-care (01) ==
LOC: ER 09:59
DX: R60.9 Edema, unspecified (principal); E87.1 Hypo-osmolality and hyponatremia; F17.200 Nicotine dependence, unspecified, uncomplicated; I11.0 Hypertensive heart disease with heart failure; I50.9 Heart failure, unspecified; J44.9 Chronic obstructive pulmonary disease, unspecified; E11.9 Type 2 diabetes mellitus without complications; Z86.718 Personal history of other venous thrombosis and embolism; Z79.01 Long term (current) use of anticoagulants; Z88.2 Allergy status to sulfonamides; Z88.3 Allergy status to other anti-infective agents; Z86.73 Personal history of transient ischemic attack (TIA), and cerebral infarction without residual deficits; Z86.14 Personal history of Methicillin resistant Staphylococcus aureus infection
CPT/HCPCS: 36415; 71045; 80053; 81001; 83690; 83880; 84484; 85025; 85610; 85730; 93005; 93010; 99284

== ENCOUNTER → 2020-05-13 | Outpatient (CLI) | payer MEDICARE, MEDICAID ==
[2020-05-13 12:55] LABS: ABSOLUTE EOSINOPHILS # (AUTO) 0.1 10^3/uL (0.0-0.6); ABSOLUTE LYMPHOCYTES (AUTO) 3.1 10^3/uL (0.5-4.7); ABSOLUTE MONOCYTES (AUTO) 0.3 10^3/uL (0.1-1.4); ABSOLUTE NEUT (AUTO) 5.7 10^3/uL (1.7-8.2); BASOPHILS % (AUTO) 0.2 % (0-2); EOSINOPHILS % (AUTO) 0.7 % (0-6); HEMATOCRIT 35.9 % (36.0-47.0); HEMOGLOBIN 12.1 g/dL (12.0-15.5); LYMPHOCYTES % (AUTO) 33.7 % (13-45); MEAN CORPUSCULAR HEMOGLOBIN 30.6 pg (27.0-33.4); MEAN CORPUSCULAR HGB CONC 33.7 g/dL (32.0-36.0); MEAN CORPUSCULAR VOLUME 91 fl (80-97); MONOCYTES % (AUTO) 3.8 % (3-13); PLATELET COUNT 429 10^3/uL (150-450); RED BLOOD COUNT 3.96 10^6/uL (3.72-5.28); RED CELL DISTRIBUTION WIDTH 16.6 % (11.5-14.0); SEGMENTED NEUTROPHILS % (AUTO) 61.6 % (42-78); TOTAL CELLS COUNTED % (AUTO) 100 %; WHITE BLOOD COUNT 9.2 10^3/uL (4.0-10.5)
--- NOTE | 2020-05-13 13:14 | RADIOLOGY REPORT (SQ) ---
EXAM DESCRIPTION: OS CALCIS/HEEL LEFT IMAGES COMPLETED DATE/TIME: 05/13/2020 12:29 pm REASON FOR STUDY: L97.422 NON-PRS CHR ULCER OF LEFT HEEL AND MIDFOOT W FAT LAYER EXPOS, E11.6 L97.42 2 NON-PRS CHR ULCER OF LEFT HEEL AND MIDFOOT W FAT LAY E11.621 TYPE 2 DIABETES MELLITUS WITH FOOT U LCER COMPARISON: 03/05/2020 NUMBER OF VIEWS: Two views. TECHNIQUE: Plantar and lateral images acquired of the left calcaneous. LIMITATIONS: None. FINDINGS: MINERALIZATION: Normal. BONES: There is remodeling of the plantar aspect of the calcaneus with some sclerosis. No significan t interval change. JOINTS: No effusions. SOFT TISSUES: No soft tissue swelling. No foreign body. OTHER: No other significant finding. IMPRESSION: There changes in the plantar aspect of the calcaneus suggesting chronic or treated osteo myelitis. TECHNICAL DOCUMENTATION: JOB ID: [id number] 2010 [employer]- All Rights Reserved Reading location - IP/workstation name: [email or web address]
[2020-05-13 13:29] LABS: ALBUMIN 3.5 g/dL (3.5-5.0); ALKALINE PHOSPHATASE 65 U/L (38-126); ANION GAP 7 (5-19); ASPARTATE AMINO TRANSFERASE 20 U/L (14-36); BILIRUBIN,TOTAL 0.4 mg/dL (0.2-1.3); BLOOD UREA NITROGEN 30 mg/dL (7-20); C-REACTIVE PROTEIN 47.8 mg/L (<10.0); CALCIUM 8.9 mg/dL (8.4-10.2); CARBON DIOXIDE 20 mmol/L (22-30); CHLORIDE 108 mmol/L (98-107); GLUCOSE 101 mg/dL (75-110); POTASSIUM 4.9 mmol/L (3.6-5.0); TOTAL PROTEIN 7.1 g/dL (6.3-8.2)
[2020-05-13 13:31] LABS: ERYTHROCYTE SEDIMENTATION RATE 73 mm/hr (0-30)
--- NOTE | 2020-05-14 10:39 | RADIOLOGY REPORT (SQ) ---
EXAM DESCRIPTION: VENOUS REFLUX IMAGES COMPLETED DATE/TIME: 05/13/2020 4:26 pm REASON FOR STUDY: LT FOOT ULCER L97.422 NON-PRS CHR ULCER OF LEFT HEEL AND MIDFOOT W FAT LAY E11.62 1 TYPE 2 DIABETES MELLITUS WITH FOOT ULCER COMPARISON: None. TECHNIQUE: Multiple real-time grayscale sonographic images were obtained for evaluation of the right and left lower extremity. Doppler and duplex evaluation of the venous structures was performed. LIMITATIONS: None. FINDINGS: The right and left common femoral, superficial femoral, popliteal and infrapopliteal veins are patent with normal response to compression and augmentation maneuvers. Right greater saphenous vein: Patent without reflux. Right small saphenous vein: Patent without reflux. Left greater saphenous vein: Patent without reflux peer Left small saphenous vein: Patent without reflux. OTHER: No solid or cystic masses or other abnormal findings. IMPRESSION: NORMAL STUDY. TECHNICAL DOCUMENTATION: JOB ID: [id number] 2010 [employer]- All Rights Reserved Reading location - IP/workstation name: [email or web address]
== END ==
LOC: SP 10:52
PROVIDERS: ATTEND Preventive Medicine Undersea and Hyperbaric Medicine
DX: E11.621 Type 2 diabetes mellitus with foot ulcer (principal); L97.422 Non-pressure chronic ulcer of left heel and midfoot with fat layer exposed
CPT/HCPCS: 36415; 80053; 83036; 85025; 85652; 86140; 93970

== ENCOUNTER → 2020-06-05 | Outpatient (CLI) | payer MEDICARE, MEDICAID ==
--- NOTE | 2020-06-05 09:27 | RADIOLOGY REPORT (SQ) ---
EXAM DESCRIPTION: OS CALCIS/HEEL LEFT IMAGES COMPLETED DATE/TIME: 06/05/2020 9:17 am REASON FOR STUDY: NON-PRS CHR ULCER OF LEFT HEEL AND MIDFOOT W FAT LAYER EXPOS L97.422 NON-PRS CHR ULCER OF LEFT HEEL AND MIDFOOT W FAT LAY COMPARISON: None. NUMBER OF VIEWS: Two views. TECHNIQUE: Plantar and lateral images acquired of the left calcaneous. LIMITATIONS: None. FINDINGS: MINERALIZATION: Normal. BONES: Persistent irregularity along the volar aspect of the calcaneus suggestive of old trauma possi caleb chronic osteomyelitis or treated osteomyelitis. No evidence of acute osteomyelitis. No significa nt osteophytes. JOINTS: No erosions. No micha-articular osteopenia. No chondrocalcinosis. SOFT TISSUES: Soft tissue irregularity consistent with ulcer. OTHER: No other significant finding. IMPRESSION: Soft tissue changes consistent with soft tissue ulcer. There chronic appearing changes in the calcaneus no evidence of acute osteomyelitis. TECHNICAL DOCUMENTATION: JOB ID: [id number] 2010 [employer]- All Rights Reserved Reading location - IP/workstation name: [email or web address]
--- NOTE | 2020-06-05 09:28 | RADIOLOGY REPORT (SQ) ---
EXAM DESCRIPTION: ANKLE LEFT COMPLETE IMAGES COMPLETED DATE/TIME: 06/05/2020 9:17 am REASON FOR STUDY: NON-PRS CHR ULCER OF LEFT HEEL AND MIDFOOT W FAT LAYER EXPOS L97.422 NON-PRS CHR ULCER OF LEFT HEEL AND MIDFOOT W FAT LAY COMPARISON: None. NUMBER OF VIEWS: Three views. TECHNIQUE: AP, lateral, and oblique radiographic images acquired of the left ankle. LIMITATIONS: None. FINDINGS: MINERALIZATION: Normal. BONES: Chronic appearing changes in the calcaneus as previously described. No acute fracture or disl ocation. No periostitis or lucencies to suggest acute osteomyelitis. JOINTS: No effusions. SOFT TISSUES: Soft tissue changes along the volar aspect of the heel consistent with ulcer. OTHER: No other significant finding. IMPRESSION: Soft tissue ulcer. No conventional radiographic evidence of osteomyelitis. TECHNICAL DOCUMENTATION: JOB ID: [id number] 2010 [employer]- All Rights Reserved Reading location - IP/workstation name: [email or web address]
--- NOTE | 2020-06-05 09:29 | RADIOLOGY REPORT (SQ) ---
EXAM DESCRIPTION: FOOT LEFT COMPLETE IMAGES COMPLETED DATE/TIME: 06/05/2020 9:17 am REASON FOR STUDY: NON-PRS CHR ULCER OF LEFT HEEL AND MIDFOOT W FAT LAYER EXPOS L97.422 NON-PRS CHR ULCER OF LEFT HEEL AND MIDFOOT W FAT LAY COMPARISON: None. NUMBER OF VIEWS: Three views. TECHNIQUE: AP, lateral and oblique radiographic images acquired of the left foot. LIMITATIONS: None. FINDINGS: MINERALIZATION: Normal. BONES: No acute fracture or dislocation. No worrisome bone lesions. Chronic changes involving the c alcaneus stable from prior study. JOINTS: No effusions. SOFT TISSUES: Slight soft tissue swelling dorsally. Soft tissue defect overlying the calcaneus consi stent with ulcer. OTHER: No other significant finding. IMPRESSION: Mild soft tissue swelling and soft tissue defect overlying the calcaneus. No convention al radiographic evidence of acute osteomyelitis. TECHNICAL DOCUMENTATION: JOB ID: [id number] 2010 [employer]- All Rights Reserved Reading location - IP/workstation name: [email or web address]
[2020-06-05 09:38] LABS: ABSOLUTE BASOPHILS # (AUTO) 0.1 10^3/uL (0.0-0.2); ABSOLUTE EOSINOPHILS # (AUTO) 0.1 10^3/uL (0.0-0.6); ABSOLUTE NEUT (AUTO) 6.1 10^3/uL (1.7-8.2); BASOPHILS % (AUTO) 0.7 % (0-2); EOSINOPHILS % (AUTO) 1.1 % (0-6); HEMATOCRIT 38.2 % (36.0-47.0); HEMOGLOBIN 12.8 g/dL (12.0-15.5); LYMPHOCYTES % (AUTO) 35.7 % (13-45); MEAN CORPUSCULAR HEMOGLOBIN 29.7 pg (27.0-33.4); MEAN CORPUSCULAR HGB CONC 33.4 g/dL (32.0-36.0); MEAN CORPUSCULAR VOLUME 89 fl (80-97); MONOCYTES % (AUTO) 8.5 % (3-13); PLATELET COUNT 491 10^3/uL (150-450); RED CELL DISTRIBUTION WIDTH 16.9 % (11.5-14.0); TOTAL CELLS COUNTED % (AUTO) 100 %; WHITE BLOOD COUNT 11.3 10^3/uL (4.0-10.5)
[2020-06-05 10:05] LABS: ALBUMIN 3.9 g/dL (3.5-5.0); ALKALINE PHOSPHATASE 65 U/L (38-126); ANION GAP 6 (5-19); ASPARTATE AMINO TRANSFERASE 17 U/L (14-36); BILIRUBIN,DIRECT 0.1 mg/dL (0.0-0.4); BILIRUBIN,TOTAL 0.3 mg/dL (0.2-1.3); BLOOD UREA NITROGEN 22 mg/dL (7-20); CALCIUM 9.4 mg/dL (8.4-10.2); CARBON DIOXIDE 27 mmol/L (22-30); CHLORIDE 104 mmol/L (98-107); GLUCOSE 104 mg/dL (75-110); POTASSIUM 4.6 mmol/L (3.6-5.0)
[2020-06-05 10:15] LABS: ERYTHROCYTE SEDIMENTATION RATE 73 mm/hr (0-30)
== END ==
LOC: WC 08:22
PROVIDERS: ATTEND Preventive Medicine Undersea and Hyperbaric Medicine
DX: L97.422 Non-pressure chronic ulcer of left heel and midfoot with fat layer exposed (principal)
CPT/HCPCS: 36415; 80053; 85025; 85652; 86140